=== PATIENT | female | born 1960 | race Caucasian/White ===

== ENCOUNTER → 2016-09-23 | Outpatient (REF) | payer MEDICARE, MEDICAID ==
[2016-09-23 13:04] LABS: BASO % 0.4 % (0.0-1.0); EOS # 0.2 K/mm3 (0.0-0.50); EOS % 2.4 % (0.0-3.0); LARGE UNSTAINED CELL # 0.1 K/mm3 (0.0-0.4); LARGE UNSTAINED CELL % 1.2 % (0.0-4.0); LYMPH # 1.7 K/mm3 (1.5-4.5); LYMPH % 26.2 % (24.0-44.0); MEAN CORPUSCULAR HEMOGLOBIN 31.8 pg (27.0-33.0); MEAN CORPUSCULAR HGB CONC 34.7 g/dl (32.0-36.5); MEAN CORPUSCULAR VOLUME 91.8 fl (80.0-96.0); MONO # 0.3 K/mm3 (0.0-0.8); MONO % 4.5 % (0.0-5.0); NEUTROPHILS # 4.1 K/mm3 (1.8-7.7); NEUTROPHILS % 65.3 % (36.0-66.0); PLATELET COUNT, AUTOMATED 256 k/mm3 (150-450); WHITE BLOOD COUNT 6.2 K/mm3 (4.0-10.0)
[2016-09-23 13:31] LABS: ALBUMIN 3.8 GM/DL (3.2-5.2); ALBUMIN/GLOBULIN RATIO 1.15 (1.00-1.93); ALKALINE PHOSPHATASE 133 U/L (45-117); ALT/SGPT 19 U/L (12-78); ANION GAP 11 MEQ/L (8-16); AST/SGOT 18 U/L (15-37); BILIRUBIN,TOTAL 0.3 MG/DL (0.2-1.0); BLOOD UREA NITROGEN 19 MG/DL (7-18); CALCIUM LEVEL 9.5 MG/DL (8.5-10.1); CARBON DIOXIDE LEVEL 26 MEQ/L (21-32); CHLORIDE LEVEL 104 MEQ/L (98-107); CREATININE FOR GFR 0.72 MG/DL (0.55-1.02); FREE T4 0.94 NG/DL (0.76-1.46); GLOMERULAR FILTRATION RATE > 60.0 (>51); GLUCOSE, FASTING 116 MG/DL (70-105); POTASSIUM SERUM 4.3 MEQ/L (3.5-5.1); SODIUM LEVEL 141 MEQ/L (136-145); TOTAL PROTEIN 7.1 GM/DL (6.4-8.2)
[2016-09-23 13:32] LABS: VITAMIN B12 LEVEL 298 PG/ML (247-911)
== END ==
LOC: M SFHCPLAZ 09:23
PROVIDERS: ATTEND Physician Assistant Medical
DX: I10 Essential (primary) hypertension (principal); E78.00 Pure hypercholesterolemia, unspecified; E55.9 Vitamin D deficiency, unspecified; Z79.899 Other long term (current) drug therapy

== ENCOUNTER → 2016-10-27 | Outpatient (CLI) | payer MEDICARE, MEDICAID ==
--- NOTE | 2016-10-27 15:54 | REPMRS ---
Patient History The patient states she has not had a clinical breast exam in over a year. Patient is postmenopausal. Family history of premenopausal breast cancer in sister at age 50 or over. Benign excisional biopsy of the left breast, 2002. Digital Woman Screen Mammo: October 27, 2016 - Exam #: [id number] Bilateral CC and MLO view(s) were taken. Technologist: Korin Shaver, Technologist Prior study comparison: September 22, 2013, digital woman screen mammo performed at [facility] [place] [facility]. October 14, 2011, digital woman screen mammo performed at [facility] [place] [facility] to [facility]. FINDINGS: There are scattered fibroglandular densities. There is a fairly symmetric fibroglandular pattern in both breasts. There has been no interval development of masses, areas of architectural distortion or clusters of microcalcifications typical of malignancy. ASSESSMENT: BI-RADS/ACR category 2 mammogram. Benign finding(s). Recommendation Routine screening mammogram of both breasts in 1 year (for women over age 40). This mammogram was interpreted with the aid of an FDA-approved computer-aided dectection system. Electronically Signed By: Pradeep Reddy MD 10/27/16 [id number]
== END ==
LOC: M WHC 14:56
PROVIDERS: ATTEND Physician Assistant Medical
DX: Z12.31 Encounter for screening mammogram for malignant neoplasm of breast (principal)

== ENCOUNTER 2017-06-03 16:12 | Inpatient (IN) | payer OTHER, MEDICAID ==
[~2017-06-03] VITALS: Ht 165.1 cm; Wt 82.7 kg
[2017-06-03] MEDS ORDERED: CO Q100C PO (18:13)
[2017-06-03] MEDS ORDERED: VITA400C7 PO (18:13)
[2017-06-03] MEDS ORDERED: CALC600T31 PO (18:13)
[2017-06-03] MEDS ORDERED: IRON65TA PO (18:13)
[2017-06-03] MEDS ORDERED: TYLE325T5 PO (18:13)
[2017-06-03] MEDS ORDERED: MAALOX 30 ML SUSP *UDC PO PRN (19:45)
[2017-06-03] MEDS ORDERED: MOM 30ML SUSPENSION UDC PO PRN (19:45)
[2017-06-03] MEDS ORDERED: traZODone 50 MG TAB PO PRN (19:45)
[2017-06-04 00:09] VITALS: BP 139/82
[2017-06-04] MEDS: ACETAMINOPHEN TAB 650MG DOSE (2X325MG) PO PRN ×2 (01:12→09:40)
[2017-06-04 06:33] VITALS: BP 145/96
[2017-06-04] MEDS: FERROUS SULFATE 325MG TAB PO SCH (08:34)
[2017-06-04] MEDS: CO-ENZYME Q10 50 MG CAP PO SCH (08:34)
[2017-06-04] MEDS: VITAMIN E 400 INTERNATIONAL UNITS CAP PO SCH (08:34)
[2017-06-04] MEDS: OYSTER SHELL CALCIUM 500 MG TAB PO SCH ×2 (08:35→20:15)
[2017-06-04] MEDS ORDERED: risperiDONE 2 MG TAB PO SCH (09:00)
--- NOTE | 2017-06-04 09:08 | HPEPDOC ---
[facility] Medical History & Physical Date of Admission Jun 03, 2017 History and Physical PCP: [facility] ATTENDING: Dr. Carl Alcantar HPI: 57yoF transferred from [facility] admitted to [facility] for paranoid schizophrenia, being medically examined today. No acute medical complaints today. The patient has rapid, pressured and tangential speech and has a difficult time providing history. She is redirected multiple times. According to records the patient has been noncompliant with her medications. She was seen in the [facility] clinic by her PCP 10/02 at which time she reported to be taking her medications. Medication regimen included atorvastatin 20 mg daily, benazepril 5 mg daily, Drisdol weekly and Xarelto 20 mg daily related to history of CVA. Denies any fevers, chills, weakness, fatigue, IGLESIAS, CP, SOB, cough, palpitations, abdominal pain, N/V/D or changes in bowel or bladder habits. PMHx: NIDDM GERD COPD Schizophrenia Dyslipidemia History of left CVA 03/19 with residual right facial drooping Iron deficiency anemia, patient has declined scoping as per office notes. Vitamin D deficiency History of goiter, FNA 04/30 benign nodule. Osteoarthritis PSHX: TM repair SOCHX: Resides in: [facility] Marital Status: Kids: 2 Employment: Unemployed Tobacco use: Quit 2000 ETOH: Denies Illicit Drugs: Denies IV Drug Use: Denies Tattoos done unprofessionally: Denies FAMHX: Mother: , Parkinson's disease Father: , [place] Siblings: Alive, well Children: Alive, well Unexpected deaths due to medical reasons: None. ROS: As noted in HPI, otherwise 11pt ROS of systems reviewed and remarkable only for postmenopausal. PE: GEN: 57 yo F, appears stated age. Well-nourished. Unkept. No acute distress. Alert and oriented x 3. Rambling and tangential speech, redirected multiple times to answer questions. HEENT: Normocephalic, atraumatic. Pupils are equal, round, and reactive to light. Extraocular movements are intact. No nystagmus appreciated. Sclera are nonicteric. Conjunctiva without injection. Nose midline. Nasal turbinates without bogginess. EACs both patent BL. TMs both visualized and reece with good cone of light, no bulging or erythema. No facial asymmetry. Moist mucous membranes. Dentition fair. Pharynx pink and moist, no cobblestoning. Neck supple , trachea midline. No lymphadenopathy or thyromegaly appreciated. CHEST: Regular rate and rhythm, +S1, +S2 LUNGS: Clear to auscultation bilaterally. No wheezes, rales, or rhonchi. Breathing appears symmetric and easy. Patient is speaking in full sentences. No accessory muscle use. ABD: Round, soft, non-tender, non-distended. +Bowel sounds throughout. No rebound or guarding. No costovertebral angle tenderness. EXT: Pulses 2+ bilaterally dorsalis pedis and radial. No lower extremity edema appreciated. SKIN: [place], dry, warm. Capillary refill <2sec. No rashes. There is mild erythema and warmth noted at the dorsal aspect of the Rt foot, mild TTP. NEURO: Alert and oriented x 3. Cranial nerves III-XII are intact. No focal deficits appreciated. [facility] . UA neg. UC pending WBC 7.6 Hgb13.0 Hct 37.8 Plt 274 Glu 101 BUN16 Scr 0.7 K 3.7 Cl 102 NA 140 AST 15 ALT 19 Lipase 155 Trop < 0.017 TSH 0.47 CXR NAD Ammonia <10 Toxicology unremarkable. EKG: SR 55bpm. A&P: 57yoF [address] from [facility] admitted to [facility] for paranoid schizophrenia 1. Psych. Plan per Psychiatry. Obtain baseline EKG to assure the safety of psychiatric medications as they can prolong the QT interval. 2. Rt foot edema/pain. Pt with mild erythema and TTP dorsal aspect of foot, possibly shoes had been rubbing there, no skin breakdown, drainage, no streaking. Pt is afebrile, no leukocytosis. Add Keflex 500mg TID x 10 days. Monitor. U/S RLE pending XR Rt foot pending. 3. Hypertension. Blood pressure is noted to be 139-172 systolic. Restart benazepril 5 mg daily with hold parameters. 4. Follow up with PCP on discharge. 5. Dyslipidemia. LDL 10/02 is noted to be 80. Restart atorvastatin 20 mg daily. 6. Vitamin D deficiency. Vitamin D level 10/02 is noted within normal limits. Restart Drisdol weekly. Add vitamin D level to labs. 7. NIDDM. Diet controlled. Hemoglobin A1c 10/02 is noted to be 5.7. Glucose 101 on admission labs. 8. H/O CVA. Per noted Pt previously on Xarelto. Has not filled since 11/02. Also as per office note in past indicates Coumadin was changed to Xarelto 04/01 related to non compliance and INR not therapeutic. Spoke with Dr Sommer, ([facility] Pt), who also reviewed office notes. No prior h/o Afib noted. Recommends ASA 81mg considering Pt's non compliance, risk for falls and psychiatric history. ASA 81 mg daily added to regimen. 9. Fe def anemia. Cont po supplement. Hgb 13.0. Continue outpt F/U. 10. Staff member Nika present throughout exam. Vital Signs Vital Signs Date Time Temp Pulse Resp B/P (MAP) Pulse Ox O2 Delivery O2 Flow Rate FiO2 06/04/17 06:33 97.1 84 16 145/96 (112) 06/04/17 00:09 Room Air 06/03/17 23:40 96 Laboratory Data Labs 24H Item Value Date Time White Blood Count 6.2 K/mm3 09/23/16 0952 Red Blood Count 4.04 M/mm3 09/23/16 0952 Hemoglobin 12.9 g/dl 09/23/16 0952 Hematocrit 37.1 % 09/23/16 0952 Mean Corpuscular Volume 91.8 fl 09/23/16 0952 Mean Corpuscular Hemoglobin 31.8 pg 09/23/16 0952 Mean Corpuscular Hemoglobin Concent 34.7 g/dl 09/23/16 0952 Red Cell Distribution Width 13.0 % 09/23/16 0952 Platelet Count 256 k/mm3 09/23/16 0952 Sodium Level 141 MEQ/L 09/23/16 0952 Potassium Level 4.3 MEQ/L 09/23/16 0952 Chloride Level 104 MEQ/L 09/23/16 0952 Carbon Dioxide Level 26 MEQ/L 09/23/16 0952 Anion Gap 11 MEQ/L 09/23/16 0952 Blood Urea Nitrogen 19 MG/DL H 09/23/16 0952 Creatinine 0.72 MG/DL 09/23/16 0952 Glomerular Filtration Rate > 60.0 09/23/16 0952 Fasting Glucose 116 MG/DL H 09/23/16 0952 Estimated Mean Plasma Glucose 117 MG/DL H 09/23/16 0952 Hemoglobin A1c 5.7 % 09/23/16951 Calcium Level 9.5 MG/DL 09/23/16951 Total Bilirubin 0.3 MG/DL 09/23/16951 Aspartate Amino Transf (AST/SGOT) 18 U/L 09/23/16951 Alanine Aminotransferase (ALT/SGPT) 19 U/L 09/23/16951 Alkaline Phosphatase 133 U/L H 09/23/16951 LDL Cholesterol 80.0 MG/DL 04/13/16 1237 Vitamin B12 Level 298 PG/ML 09/23/16951 25-Hydroxy Vitamin D Total 37.2 NG/ML 09/23/16951 Thyroid Stimulating Hormone (TSH) 0.735 uIU/ML 09/23/16951 Free Thyroxine 0.94 NG/DL 09/23/16951 Home Medications Scheduled (Co Q-10) 100 Mg Cap, 100 MG PO DAILY (Iron) 325 Mg Tab, 325 MG PO DAILY Calcium (Calcium) 600 Mg Tab, 600 MG PO BID Vitamin E (Vitamin E) 400 Unit Cap, 400 UNIT PO DAILY Scheduled PRN Acetaminophen (Tylenol) 325 Mg Tab, 650 MG PO Q4H PRN for PAIN Allergies Coded Allergies: No Known Allergies (Verified Allergy, Unknown, 01/08/07) Lori Feliz Jun 04, 2017 09:08
[2017-06-04] MEDS: VITAMIN D 50,000 UNITS CAPSULE (ERGOCALCIFEROL 1.25MG) PO SCH (09:38)
[2017-06-04] MEDS: BENAZEPRIL 5 MG TAB PO SCH (11:35)
[2017-06-04] MEDS: DIVALPROEX 250 MG TAB PO SCH ×2 (11:36→20:16)
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
--- NOTE | 2017-06-04 13:50 | REP ---
Clinical: Pain. Technique: AP, lateral, bilateral oblique views of the right foot. Comparison: 04/15/2014. Findings: Moderate diffuse osteoarthritic degenerative changes are appreciated and similar to prior examination. No acute fracture dislocation. Lateral view demonstrates moderate calcaneal heal spur. Findings: Moderate osteoarthritic degenerative changes. Signed by Dominic Ham MD 06/04/2017 01:42 P
--- NOTE | 2017-06-04 13:59 | REP ---
Clinical: Right lower extremity pain and swelling . Technique: Reddy scale and color Doppler evaluation using linear high frequency transducer. Findings: Ultrasound examination of the right lower extremity deep venous structures from the common femoral vein to the popliteal vein demonstrates normal compressibility flow and wave patterns in response to respiration and augmentation. There is no evidence for deep venous thrombosis. Incidental right inguinal lymph node measures 4.3 x 1.4 x 1.9 cm. Impression: No evidence for deep venous thrombosis. Signed by Dominic Ham MD 06/04/2017 01:50 P
[2017-06-04] MEDS ORDERED: QUEtiapine FUMARATE 50 MG TAB PO PRN (15:00)
[2017-06-04] MEDS: ASPIRIN 81 MG ENTERIC TAB PO SCH (15:17)
[2017-06-04] MEDS: CEPHALEXIN 500 MG CAP PO SCH ×2 (15:17→20:15)
[2017-06-04] MEDS ORDERED: IBUPROFEN 800 MG TAB PO PRN (16:45)
[2017-06-04 18:18] VITALS: BP 118/68
[2017-06-04] MEDS: PALIPERIDONE 6 MG ER TAB (INVEGA) PO SCH (20:15)
[2017-06-04] MEDS: QUEtiapine FUMARATE 50 MG TAB PO SCH (20:16)
[2017-06-04] MEDS: ATORVASTATIN 20 MG TAB PO SCH (20:16)
[2017-06-04] MEDS ORDERED: QUEtiapine FUMARATE 100 MG TAB PO SCH (21:00)
[2017-06-05 06:36] VITALS: BP 134/90
--- NOTE | 2017-06-05 10:34 | MHIPNPDOC ---
[facility] Progress Note Progress Note DATE OF SERVICE: 06/05/17 HISTORY: As per Dr. Crespo: HISTORY OF PRESENT ILLNESS: 57-year-old female with history of paranoid schizophrenia admitted to our unit on a 9.39 legal status. According to the records, the patient was transferred from [facility] after she was evaluated and found to be psychotic." VITAL SIGNS: See below. NEW TEST RESULTS: N/A CURRENT MEDICATIONS: See below. MENTAL STATUS EXAMINATION: Patient is a 57-year old female, who is a/ert, dressed in hospital clothes, fair hygiene, poor eye contact Speech: Is Tangential and circumstantial Language skills are Limited Thought processes including: Incoherent Thought content: Disorganized Abstract reasoning, and computation: Not assessed at this time due to altered mental status Description of associations: loose Description of abnormal or psychotic thoughts: Paranoid delusions, not suicidal and not homicidal. Judgment: Poor Insight: Poor. Orientation: Oriented to place, situation and person. Recent and remote memory: Limited. Attention span and concentration: Distractible. Language: Limited. Fund of knowledge: Fair. Mood: Depressed. Affect: constricted. DIAGNOSES: 1. Paranoid schizophrenia, by history. 2. R/O Schizoaffective disorder. ASSESSMENT: Patient is delusional, tangential, incoherent but she's not aggressive. complains about pain in her foot. She has no insight, she says she doesn't need to be here, the only problem she has is her foot pain. She's on Paliperidone 6 mgs. PO QHS. will leave for Dr. Crespo to decide if medication should be increased. MANAGEMENT PLAN: Willl continue with the same meds. Patient is stable at this time. TIME SPENT: 20 minutes. Vital Signs Vital Signs Date Time Temp Pulse Resp B/P (MAP) Pulse Ox O2 Delivery O2 Flow Rate FiO2 06/05/17 06:36 97.2 87 20 134/90 (105) Room Air 06/03/17 23:40 96 Current Medications Current Medications Acetaminophen (Tylenol Tab) 650 mg Q6HP PRN PO HEADACHE or DISCOMFORT Last administered on 06/04/17t 09:40; Start 06/03/17 at 19:45; Stop 06/04/17 at 16 :36; Status DC Al Hydrox/Mg Hydrox/Simethicone (Mylanta) 30 ml Q4HP PRN PO HEARTBURN/ INDIGESTION; Start 06/03/17 at 19:45; Stop 07/03/17 at 19:44 Aspirin (Ecotrin) 81 mg DAILY PO Last administered on 06/04/17 15:17; Start 06/04/17 at 09:00; Stop 07/04/17 at 08:59 Atorvastatin Calcium (Lipitor) 20 mg QHS PO Last administered on 06/04/17 20: 16; Start 06/04/17 at 21:00; Stop 07/04/17 at 20:59 Benazepril HCl (Lotensin) 5 mg DAILY PO Last administered on 06/04/17 11:35; Start 06/04/17 at 09:00; Stop 07/04/17 at 08:59 Calcium Carbonate (Oscal) 500 mg BID PO Last administered on 06/04/17 20:15; Start 06/04/17 at 09:00; Stop 07/04/17 at 08:59 Cephalexin Monohydrate (Keflex) 500 mg TID PO Last administered on 06/04/17 20:15; Start 06/04/17 at 16:00; Stop 06/14/17 at 09:01 Coenzyme Q10 (Coenzyme Q10) 100 mg DAILY PO Last administered on 06/04/17 08: 34; Start 06/04/17 at 09:00; Stop 07/04/17 at 08:59 Divalproex Sodium (Depakote) 250 mg BID PO Last administered on 06/04/17 20: 16; Start 06/04/17 at 09:00; Stop 07/04/17 at 08:59 Ferrous Sulfate (Ferrous Sulfate) 325 mg DAILY PO Last administered on 08:34; Start 06/04/17 at 09:00; Stop 07/04/17 at 08:59 Home Med (Med Rec Complete!) ASDIRECTED XX ; Start 06/03/17 at 18:15; Stop at 18:15; Status DC Ibuprofen (Advil) 800 mg Q8HP PRN PO MODERATE PAIN (PS 5-7) Last administered on 06/04/17 16:38; Start 06/04/17 at 16:45; Stop 07/04/17 at 16:44 Magnesium Hydroxide (Milk Of Magnesia) 30 ml DAILYPRN PRN PO CONSTIPATION; Start 06/03/17 at 19:45; Stop 07/03/17 at 19:44 Paliperidone (Invega) 6 mg QHS PO Last administered on 06/04/17 20:15; Start 06/04/17 at 21:00; Stop 07/04/17 at 20:59 Quetiapine Fumarate (SEROquel) 50 mg QHS PO Last administered on 06/04/17 20: 16; Start 06/04/17 at 21:00; Stop 07/04/17 at 20:59 Quetiapine Fumarate (SEROquel) 50 mg QHS PRN PO INSOMNIA; Start 06/04/17 at 15 :00; Stop 07/04/17 at 14:59 Quetiapine Fumarate (SEROquel) 100 mg QHS PO ; Start 06/04/17 at 21:00; Stop 06/04/17 at 21:00; Status DC Risperidone (RisperDAL) 2 mg BID PO ; Start 06/04/17 at 09:00; Stop 06/04/17 at 14:50; Status DC Trazodone HCl (Desyrel) 50 mg QHSP PRN PO INSOMNIA; Start 06/03/17 at 19:45; Stop 06/04/17 at 10:42; Status DC Vitamin D (Drisdol) 50,000 units Fr@09 PO Last administered on 06/04/17 09:38 ; Start 06/04/17 at 09:00; Stop 07/04/17 at 08:59 Vitamin E (Vitamin E) 400 units DAILY PO Last administered on 06/04/17 08:34 ; Start 06/04/17 at 09:00; Stop 07/04/17 at 08:59 Allergies Coded Allergies: No Known Allergies (Verified Allergy, Unknown, 01/08/07) JOSÉ LUIS KIM MD Jun 05, 2017 10:34
[2017-06-05] MEDS: OYSTER SHELL CALCIUM 500 MG TAB PO SCH ×2 (11:02→20:05)
[2017-06-05] MEDS: CEPHALEXIN 500 MG CAP PO SCH ×3 (11:02→20:05)
[2017-06-05] MEDS: CO-ENZYME Q10 50 MG CAP PO SCH (11:02)
[2017-06-05] MEDS: ASPIRIN 81 MG ENTERIC TAB PO SCH (11:03)
[2017-06-05] MEDS: VITAMIN E 400 INTERNATIONAL UNITS CAP PO SCH (11:03)
[2017-06-05] MEDS: DIVALPROEX 250 MG TAB PO SCH ×2 (11:03→20:06)
[2017-06-05] MEDS: FERROUS SULFATE 325MG TAB PO SCH (11:03)
[2017-06-05] MEDS: BENAZEPRIL 5 MG TAB PO SCH (11:03)
[2017-06-05] MEDS: IBUPROFEN 800 MG TAB PO SCH ×2 (11:11→19:36)
[2017-06-05 18:00] VITALS: BP 117/66
[2017-06-05] MEDS: QUEtiapine FUMARATE 50 MG TAB PO SCH (20:05)
[2017-06-05] MEDS: ATORVASTATIN 20 MG TAB PO SCH (20:05)
[2017-06-05] MEDS: PALIPERIDONE 6 MG ER TAB (INVEGA) PO SCH (20:06)
[2017-06-06] MEDS: IBUPROFEN 800 MG TAB PO SCH ×3 (03:00→19:33)
[2017-06-06 06:24] VITALS: BP 115/56
[2017-06-06] MEDS: OYSTER SHELL CALCIUM 500 MG TAB PO SCH ×2 (07:55→20:04)
[2017-06-06] MEDS: CEPHALEXIN 500 MG CAP PO SCH ×3 (07:55→20:05)
[2017-06-06] MEDS: VITAMIN E 400 INTERNATIONAL UNITS CAP PO SCH (07:55)
[2017-06-06] MEDS: ASPIRIN 81 MG ENTERIC TAB PO SCH (07:55)
[2017-06-06] MEDS: FERROUS SULFATE 325MG TAB PO SCH (07:55)
[2017-06-06] MEDS: DIVALPROEX 250 MG TAB PO SCH ×2 (07:56→20:04)
[2017-06-06] MEDS: CO-ENZYME Q10 50 MG CAP PO SCH (07:56)
[2017-06-06] MEDS: BENAZEPRIL 5 MG TAB PO SCH (07:56)
--- NOTE | 2017-06-06 16:55 | MHIPNPDOC ---
[facility] Progress Note Progress Note DATE OF SERVICE: 06/06/17 HISTORY: As per Dr. Crespo: HISTORY OF PRESENT ILLNESS: 57-year-old female with history of paranoid schizophrenia admitted to our unit on a 9.39 legal status. According to the records, the patient was transferred from [facility] after she was evaluated and found to be psychotic." Today, 06/06/17, the patient keeps saying she wants to go home, she says she shouldn't be here. She worries about her home, she says she has not heat at home. She says her feet is les swollen, less red and it hurts less. VITAL SIGNS: See below. NEW TEST RESULTS: N/A CURRENT MEDICATIONS: See below. MENTAL STATUS EXAMINATION: Patient is a 57-year old female, alert, mildly cooperative, mildly disheveled, with poor eye contact, dressed in hospital clothes Speech: Normal in rate, tone and volume Language skills are fair Thought processes including: less disorganized Thought content: perseveres about going home Abstract reasoning, and computation: Not assessed at this time due to altered mental status Description of associations: less loose Description of abnormal or psychotic thoughts: She is not responding to internal stimuli, she is not paranoid today, she denies SI/HI. Judgment: Improving Insight: Improving Orientation: Oriented to place, situation and person. Recent and remote memory: Limited. Attention span and concentration: Fair Language: Limited. Fund of knowledge: Fair. Mood: Brighter Affect: Brighter DIAGNOSES: 1. Paranoid schizophrenia, by history. 2. R/O Schizoaffective disorder. ASSESSMENT: Patient is improving, she's less tangential, less disorganized. Having a good response to medications, she's pleasant and more coherent. Was not responding to internal stimuli and she was not paranoid. MANAGEMENT PLAN: Willl continue with the same treatment plan. TIME SPENT: 20 minutes. Vital Signs Vital Signs Date Time Temp Pulse Resp B/P (MAP) Pulse Ox O2 Delivery O2 Flow Rate FiO2 06/06/17 07:56 115/56 06/06/17 06:24 97.3 68 18 06/05/17 06:36 Room Air 06/03/17 23:40 96 Current Medications Current Medications Acetaminophen (Tylenol Tab) 650 mg Q6HP PRN PO HEADACHE or DISCOMFORT Last administered on 06/04/17t 09:40; Start 06/03/17 at 19:45; Stop 06/04/17 at 16 :36; Status DC Al Hydrox/Mg Hydrox/Simethicone (Mylanta) 30 ml Q4HP PRN PO HEARTBURN/ INDIGESTION; Start 06/03/17 at 19:45; Stop 07/03/17 at 19:44 Aspirin (Ecotrin) 81 mg DAILY PO Last administered on 06/06/17 07:55; Start 06/04/17 at 09:00; Stop 07/04/17 at 08:59 Atorvastatin Calcium (Lipitor) 20 mg QHS PO Last administered on 06/05/17 20: 05; Start 06/04/17 at 21:00; Stop 07/04/17 at 20:59 Benazepril HCl (Lotensin) 5 mg DAILY PO Last administered on 06/06/17 07:56; Start 06/04/17 at 09:00; Stop 07/04/17 at 08:59 Calcium Carbonate (Oscal) 500 mg BID PO Last administered on 06/06/17 07:55; Start 06/04/17 at 09:00; Stop 07/04/17 at 08:59 Cephalexin Monohydrate (Keflex) 500 mg TID PO Last administered on 06/06/17 15:59; Start 06/04/17 at 16:00; Stop 06/14/17 at 09:01 Coenzyme Q10 (Coenzyme Q10) 100 mg DAILY PO Last administered on 06/06/17 07: 56; Start 06/04/17 at 09:00; Stop 07/04/17 at 08:59 Divalproex Sodium (Depakote) 250 mg BID PO Last administered on 06/06/17 07: 56; Start 06/04/17 at 09:00; Stop 07/04/17 at 08:59 Ferrous Sulfate (Ferrous Sulfate) 325 mg DAILY PO Last administered on 07:55; Start 06/04/17 at 09:00; Stop 07/04/17 at 08:59 Home Med (Med Rec Complete!) ASDIRECTED XX ; Start 06/03/17 at 18:15; Stop at 18:15; Status DC Ibuprofen (Advil) 800 mg Q8H PO Last administered on 06/06/17 10:59; Start 06/05/17 at 11:00; Stop 07/05/17 at 10:59 Ibuprofen (Advil) 800 mg Q8HP PRN PO MODERATE PAIN (PS 5-7) Last administered on 06/04/17 16:38; Start 06/04/17 at 16:45; Stop 06/05/17 at 10:32; Status DC Magnesium Hydroxide (Milk Of Magnesia) 30 ml DAILYPRN PRN PO CONSTIPATION; Start 06/03/17 at 19:45; Stop 07/03/17 at 19:44 Paliperidone (Invega) 6 mg QHS PO Last administered on 06/05/17 20:06; Start 06/04/17 at 21:00; Stop 07/04/17 at 20:59 Quetiapine Fumarate (SEROquel) 50 mg QHS PO Last administered on 06/05/17 20: 05; Start 06/04/17 at 21:00; Stop 07/04/17 at 20:59 Quetiapine Fumarate (SEROquel) 50 mg QHS PRN PO INSOMNIA; Start 06/04/17 at 15 :00; Stop 07/04/17 at 14:59 Quetiapine Fumarate (SEROquel) 100 mg QHS PO ; Start 06/04/17 at 21:00; Stop 06/04/17 at 21:00; Status DC Risperidone (RisperDAL) 2 mg BID PO ; Start 06/04/17 at 09:00; Stop 06/04/17 at 14:50; Status DC Trazodone HCl (Desyrel) 50 mg QHSP PRN PO INSOMNIA; Start 06/03/17 at 19:45; Stop 06/04/17 at 10:42; Status DC Vitamin D (Drisdol) 50,000 units Fr@09 PO Last administered on 06/04/17 09:38 ; Start 06/04/17 at 09:00; Stop 07/04/17 at 08:59 Vitamin E (Vitamin E) 400 units DAILY PO Last administered on 06/06/17 07:55 ; Start 06/04/17 at 09:00; Stop 07/04/17 at 08:59 Allergies Coded Allergies: No Known Allergies (Verified Allergy, Unknown, 01/08/07) JOSÉ LUIS KIM MD Jun 06, 2017 16:55
[2017-06-06 18:00] VITALS: BP 131/78
[2017-06-06] MEDS: PALIPERIDONE 6 MG ER TAB (INVEGA) PO SCH (20:04)
[2017-06-06] MEDS: ATORVASTATIN 20 MG TAB PO SCH (20:05)
[2017-06-06] MEDS: QUEtiapine FUMARATE 50 MG TAB PO SCH (20:05)
[2017-06-07] MEDS: IBUPROFEN 800 MG TAB PO SCH (03:00)
[2017-06-07 06:41] VITALS: BP 133/77
[2017-06-07] MEDS: DIVALPROEX 250 MG TAB PO SCH (08:06)
[2017-06-07] MEDS: BENAZEPRIL 5 MG TAB PO SCH (08:06)
[2017-06-07] MEDS: CO-ENZYME Q10 50 MG CAP PO SCH (08:06)
[2017-06-07] MEDS: OYSTER SHELL CALCIUM 500 MG TAB PO SCH ×2 (08:06→20:16)
[2017-06-07] MEDS: VITAMIN E 400 INTERNATIONAL UNITS CAP PO SCH (08:06)
[2017-06-07] MEDS: CEPHALEXIN 500 MG CAP PO SCH ×3 (08:06→20:16)
[2017-06-07] MEDS: FERROUS SULFATE 325MG TAB PO SCH (08:06)
[2017-06-07] MEDS: ASPIRIN 81 MG ENTERIC TAB PO SCH (08:06)
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
[2017-06-07 18:00] VITALS: BP 141/78
[2017-06-07] MEDS: DIVALPROEX 500 MG TAB PO SCH (20:16)
[2017-06-07] MEDS: PALIPERIDONE 6 MG ER TAB (INVEGA) PO SCH (20:16)
[2017-06-07] MEDS: QUEtiapine FUMARATE 100 MG TAB PO SCH (20:16)
[2017-06-07] MEDS: ATORVASTATIN 20 MG TAB PO SCH (20:16)
[2017-06-08 06:50] VITALS: BP 128/61
[2017-06-08] MEDS: DIVALPROEX 500 MG TAB PO SCH (08:14)
[2017-06-08] MEDS: OYSTER SHELL CALCIUM 500 MG TAB PO SCH ×2 (08:14→20:40)
[2017-06-08] MEDS: CEPHALEXIN 500 MG CAP PO SCH ×3 (08:14→20:40)
[2017-06-08] MEDS: BENAZEPRIL 5 MG TAB PO SCH (08:15)
[2017-06-08] MEDS: FERROUS SULFATE 325MG TAB PO SCH (08:15)
[2017-06-08] MEDS: CO-ENZYME Q10 50 MG CAP PO SCH (08:15)
[2017-06-08] MEDS: ASPIRIN 81 MG ENTERIC TAB PO SCH (08:15)
[2017-06-08] MEDS: VITAMIN E 400 INTERNATIONAL UNITS CAP PO SCH (08:15)
--- NOTE | 2017-06-08 15:59 | MHIPN ---
DATE OF SERVICE: 06/08/2017 HISTORY: A 57-year-old female with history of paranoid schizophrenia admitted to our unit on a 9.39 legal status. Patient was transferred from [facility] where she was found to be psychotic, talking to herself. The daughter said that she was reacting to internal stimuli, that she was hitting her house with a gas oven and feeling that someone was broken into her house. MEDICATIONS: - Invega 6 mg by mouth nightly - Depakote 500 mg by mouth twice a day - Seroquel 50 mg by mouth nightly SUBJECTIVE: "I feel a little less paranoid." OBJECTIVE: Patient has improved somewhat from admission. Patient can identify that she was very paranoid when she got to the hospital. Patient is denying side effect from the medication. She is compliant, is sleeping better with the help of Seroquel. MENTAL STATUS EXAMINATION: Patient dressed in [facility]. Patient is partially cooperative. Speech is tangential and has flight of ideas. Mood is anxious. Affect is congruent with mood. Patient continues paranoid but has improved. Memory, attention and concentration are impaired. Insight and judgment are poor. ASSESSMENT: Paranoid schizophrenia. PLAN: 1. 100 mg by mouth nightly. 2. Continue Depakote. 3. Continue Invega 6 mg by mouth nightly.
[2017-06-08 18:00] VITALS: BP 118/63
[2017-06-08] MEDS: PALIPERIDONE 6 MG ER TAB (INVEGA) PO SCH (20:40)
[2017-06-08] MEDS: QUEtiapine FUMARATE 100 MG TAB PO SCH (20:41)
[2017-06-08] MEDS: ATORVASTATIN 20 MG TAB PO SCH (20:41)
[2017-06-09 06:26] VITALS: BP 93/52
[2017-06-09] MEDS: CO-ENZYME Q10 50 MG CAP PO SCH (08:10)
[2017-06-09] MEDS: CEPHALEXIN 500 MG CAP PO SCH ×3 (08:12→20:05)
[2017-06-09] MEDS: BENAZEPRIL 5 MG TAB PO SCH (08:12)
[2017-06-09] MEDS: OYSTER SHELL CALCIUM 500 MG TAB PO SCH ×2 (08:12→20:05)
[2017-06-09] MEDS: ASPIRIN 81 MG ENTERIC TAB PO SCH (08:12)
[2017-06-09] MEDS: FERROUS SULFATE 325MG TAB PO SCH (08:12)
[2017-06-09] MEDS: VITAMIN E 400 INTERNATIONAL UNITS CAP PO SCH (08:12)
--- NOTE | 2017-06-09 16:24 | IPN ---
DATE: 06/03/2017 HISTORY: A 57-year-old female with history of paranoid schizophrenia, admitted to our unit on a 9.39 legal status. Patient was transferred from [facility], where she was found to be psychotic, talking to herself. The daughter said that she was reacting to internal stimuli, heating her house with a gas oven and feeling that somewhat had broken into her house. MEDICATIONS: - Invega 6 mg by mouth at bedtime - Seroquel 50 mg by mouth at bedtime SUBJECTIVE: "I'm feeling much better." OBJECTIVE: Patient is improving slowly. Patient continues somewhat paranoid but the severity and frequency of the paranoid thoughts are decreased. Patient is interacting better with other patients. Is compliant with the medication. Is able to sleep well with the help of Seroquel. MENTAL STATUS EXAMINATION: Patient is dressed in [facility]. Patient is cooperative. Speech is tangential and has flight of ideas. Mood is anxious. Affect is congruent with mood. Patient continues paranoid. Memory, attention, and concentration are impaired. Insight and judgment are limited. ASSESSMENT: Paranoid schizophrenia. PLAN: 1. Continue Invega 6 mg by mouth at bedtime. 2. Continue seq 50 mg by mouth at bedtime as needed for insomnia.
[2017-06-09 18:04] VITALS: BP 127/77
[2017-06-09] MEDS: QUEtiapine FUMARATE 100 MG TAB PO SCH (20:04)
[2017-06-09] MEDS: ATORVASTATIN 20 MG TAB PO SCH (20:05)
[2017-06-09] MEDS: PALIPERIDONE 6 MG ER TAB (INVEGA) PO SCH (20:05)
[2017-06-10 06:36] VITALS: BP 138/74
[2017-06-10] MEDS: FERROUS SULFATE 325MG TAB PO SCH (08:37)
[2017-06-10] MEDS: ASPIRIN 81 MG ENTERIC TAB PO SCH (08:37)
[2017-06-10] MEDS: CO-ENZYME Q10 50 MG CAP PO SCH (08:37)
[2017-06-10] MEDS: CEPHALEXIN 500 MG CAP PO SCH ×3 (08:37→20:14)
[2017-06-10] MEDS: OYSTER SHELL CALCIUM 500 MG TAB PO SCH ×2 (08:37→20:14)
[2017-06-10] MEDS: BENAZEPRIL 5 MG TAB PO SCH (08:37)
[2017-06-10] MEDS: VITAMIN E 400 INTERNATIONAL UNITS CAP PO SCH (08:37)
[2017-06-10] MEDS: QUEtiapine FUMARATE 100 MG TAB PO SCH (20:14)
[2017-06-10] MEDS: PALIPERIDONE 6 MG ER TAB (INVEGA) PO SCH (20:14)
[2017-06-10] MEDS: ATORVASTATIN 20 MG TAB PO SCH (20:14)
[2017-06-10 20:18] VITALS: BP 133/82
[2017-06-11 06:32] VITALS: BP 119/68
[2017-06-11 08:05] VITALS: BP 119/68
[2017-06-11] MEDS: VITAMIN D 50,000 UNITS CAPSULE (ERGOCALCIFEROL 1.25MG) PO SCH (08:05)
[2017-06-11] MEDS: OYSTER SHELL CALCIUM 500 MG TAB PO SCH (08:05)
[2017-06-11] MEDS: FERROUS SULFATE 325MG TAB PO SCH (08:05)
[2017-06-11] MEDS: CEPHALEXIN 500 MG CAP PO SCH ×2 (08:05→15:37)
[2017-06-11] MEDS: CO-ENZYME Q10 50 MG CAP PO SCH (08:05)
[2017-06-11] MEDS: VITAMIN E 400 INTERNATIONAL UNITS CAP PO SCH (08:05)
[2017-06-11] MEDS: ASPIRIN 81 MG ENTERIC TAB PO SCH (08:05)
[2017-06-11] MEDS: BENAZEPRIL 5 MG TAB PO SCH (08:05)
[2017-06-11] MEDS ORDERED: PALI1TAB3 PO (11:49)
[2017-06-11] MEDS ORDERED: CEPH500C PO (11:49)
[2017-06-11] MEDS ORDERED: ASPI81TAEC PO (11:49)
[2017-06-11] MEDS ORDERED: QUET1TAB8 PO (11:49)
[2017-06-11] MEDS ORDERED: ATOR1TAB21 PO (11:49)
[2017-06-11] MEDS ORDERED: BENA5TA PO (11:49)
[2017-06-11] MEDS ORDERED: DRIS50002 PO (11:49)
--- NOTE | 2017-06-12 16:25 | MHDS ---
DATE OF ADMISSION: 06/03/2017 DATE OF DISCHARGE: 06/11/2017 LEGAL STATUS AT ADMISSION: 939 legal status. HISTORY OF PRESENT ILLNESS: A 57-year-old female with history of paranoid schizophrenia admitted to our unit on a 939 legal status. According to the record, the patient was transferred from [facility] after she was found to be psychotic. Daughter says that she was talking to herself, interacting to internal stimuli, was angry and hitting the dining table with the fist. The daughter got afraid of the patient. Apparently she has been noncompliant with psychiatric medication for the last two years, and she has been decompensating. The daughter reported that the patient's furnace was broken and she was heating her house with a gas oven, also that she shut off her apartment water due to a leak and there is some damage in the house that needs to be repaired. She has been staying with her daughter because of the above. During the first interview in our unit, the patient was unable to cooperate. She was displaying manic-like behavior with pressured speech, jumping from subject to subject, paranoid, delusional, and unreliable. Laboratories at admission were not drawn since the patient was medically worked up at [facility]. HOSPITAL COURSE: After the first interview, the patient was admitted and started on Invega 6 mg by mouth at bedtime, Seroquel 100 mg by mouth at bedtime. With the above medication, the patient was stabilized. The patient started to improve after 2-3 days in the unit, and her paranoid delusions started to decrease, and she also started to be critical about her paranoid delusions and realizing that she had to take the medication. We had a first meeting with her daughter, and the patient understood that she needed to stay in the hospital to improve. We talked to the daughter again before discharge. She was visiting the day before, and felt that the patient was much better than the first time she saw her. The patient had no complications during this hospital admission. The patient tolerated well the medication and is more insightful that she needs to continue taking them after discharge. MENTAL STATUS EXAMINATION AT DISCHARGE: The patient is dressed in [facility]. The patient is calm and cooperative. Her speech is clear, coherent, with normal rate and is spontaneous. The patient has good eye contact. Mood is euthymic. Affect is appropriate and congruent with mood. The patient is oriented to time, place, person and situation. Maintains attention and concentration correctly. Instant recall, recent and remote memory are intact. Thought processes are coherent, logical and goal directed. The patient does not have auditory or visual hallucinations. The patient does not have paranoid, persecutory, somatic, grandiose or restoration delusions. The patient is denying suicidal or homicidal ideations. Judgment and insight are fair. DISCHARGE DIAGNOSES: AXIS I: Paranoid schizophrenia. AXIS II: Deferred. AXIS III: None acute. CONDITION ON DISCHARGE: Stable, no suicidal or homicidal ideations. No auditory or visual hallucinations or delusions. DISCHARGE MEDICATIONS: - Seroquel 100 mg by mouth at bedtime to tapered off after her complete stabilization and when she is able to sleep completely without the help of medication - Invega 6 mg by mouth at bedtime INSTRUCTIONS TO THE PATIENT: The patient is to continue taking her medications as prescribed and followup appointment. She is advised to maintain absolute sobriety from drugs and alcohol. The patient has scheduled appointment for medication management, individual psychotherapy and primary care physician.
== END 2017-06-11 18:25 | disposition home or self-care (01) | DRG 750 ==
LOC: M ED 16:12 → M ED INP 19:42 → M PSY 06-04
PROVIDERS: ADMIT Psychiatry & Neurology Psychiatry; ATTEND Psychiatry & Neurology Psychiatry
DX: F20.0 Paranoid schizophrenia (principal); E11.9 Type 2 diabetes mellitus without complications; K21.9 Gastro-esophageal reflux disease without esophagitis; J44.9 Chronic obstructive pulmonary disease, unspecified; D50.9 Iron deficiency anemia, unspecified; E78.5 Hyperlipidemia, unspecified; I10 Essential (primary) hypertension; E55.9 Vitamin D deficiency, unspecified; Z91.14 Patient's other noncompliance with medication regimen; Z87.891 Personal history of nicotine dependence; Z79.899 Other long term (current) drug therapy

== ENCOUNTER 2017-06-21 15:01 | Inpatient (IN) | payer MEDICAID, MEDICARE ==
[~2017-06-21] VITALS: Ht 165.1 cm; Wt 88.0 kg
[~2017-06-21 15:01] MED LIST: ASPI81TAEC PO; ATOR1TAB21 PO; BENA5TA PO; CALC600T31 PO; CEPH500C PO; CO Q100C PO; DRIS50002 PO; IRON65TA PO; PALI1TAB3 PO; QUET1TAB8 PO; TYLE325T5 PO; VITA400C7 PO
[2017-06-21 18:08] LABS: MEAN CORPUSCULAR HEMOGLOBIN 29.4 pg (27.0-33.0); MEAN CORPUSCULAR VOLUME 86.7 fl (80.0-96.0); PLATELET COUNT, AUTOMATED 235 10^3/uL (150-450); RED CELL DISTRIBUTION WIDTH 12.2 % (11.5-14.5); WHITE BLOOD COUNT 9.3 10^3/uL (4.0-10.0)
[2017-06-21 18:17] LABS: METHADONE URINE NEGATIVE (NEGATIVE)
[2017-06-21 18:40] LABS: ALBUMIN 3.6 GM/DL (3.2-5.2); ALKALINE PHOSPHATASE 110 U/L (45-117); ALT/SGPT 17 U/L (12-78); ANION GAP 9 MEQ/L (8-16); AST/SGOT 14 U/L (7-37); BILIRUBIN,DIRECT < 0.1 MG/DL (0.0-0.2); BILIRUBIN,TOTAL 0.2 MG/DL (0.2-1.0); BLOOD UREA NITROGEN 29 MG/DL (7-18); CARBON DIOXIDE LEVEL 25 MEQ/L (21-32); CHLORIDE LEVEL 105 MEQ/L (98-107); GLOMERULAR FILTRATION RATE > 60.0 (>51); GLUCOSE, FASTING 117 MG/DL (70-105); POTASSIUM SERUM 4.3 MEQ/L (3.5-5.1); SODIUM LEVEL 139 MEQ/L (136-145); TOTAL PROTEIN 7.6 GM/DL (6.4-8.2)
[2017-06-21] MEDS ORDERED: MAALOX 30 ML SUSP *UDC PO PRN (19:30)
[2017-06-21] MEDS ORDERED: MOM 30ML SUSPENSION UDC PO PRN (19:30)
[2017-06-21] MEDS ORDERED: ACETAMINOPHEN TAB 650MG DOSE (2X325MG) PO PRN (19:45)
[2017-06-21] MEDS ORDERED: PALI1TAB3 PO (19:50)
[2017-06-21] MEDS ORDERED: QUET1TAB8 PO (19:50)
[2017-06-21] MEDS ORDERED: DRIS50002 PO (19:50)
[2017-06-21] MEDS ORDERED: BENA5TA PO (19:50)
[2017-06-21] MEDS ORDERED: ATOR1TAB21 PO (19:50)
[2017-06-21] MEDS: DIVALPROEX 500 MG TAB PO SCH (23:40)
[2017-06-21] MEDS: QUEtiapine FUMARATE 100 MG TAB PO SCH (23:40)
[2017-06-22 01:25] VITALS: BP 138/75
[2017-06-22] MEDS: PALIPERIDONE 6 MG ER TAB (INVEGA) PO SCH ×2 (02:17→20:08)
[2017-06-22 07:00] VITALS: BP 140/77
[2017-06-22] MEDS: DIVALPROEX 500 MG TAB PO SCH ×2 (08:20→20:09)
[2017-06-22] MEDS ORDERED: NYSTATIN 500,000 U/5 ML SUSP UDC PO SCH (09:00)
[2017-06-22] MEDS ORDERED: NICOTINE 21MG/24HR 1 EA TRANSDERMAL TD SCH (09:00)
--- NOTE | 2017-06-22 09:23 | HPEPDOC ---
[facility] Medical History & Physical Date of Admission Jun 21, 2017 History and Physical PCP: [facility] ATTENDING: Dr. Carl Alcantar HPI: 57yoF admitted to [facility] from 06/03/17-06/12/17 for treatment of paranoid schizophrenia. The patient was admitted to [facility] 06/21/17 related to unspecified psychotic disorder. She is being medically examined today. No acute medical complaints today. The patient has tangential speech and has a difficult time providing history. She is redirected multiple times. Denies any fevers, chills, weakness, fatigue, IGLESIAS, CP, SOB, cough, palpitations, abdominal pain, N/V/D or changes in bowel or bladder habits. PMHx: NIDDM GERD COPD Schizophrenia Dyslipidemia History of left CVA 03/19 with residual right facial drooping Iron deficiency anemia, patient has declined scoping as per office notes. Vitamin D deficiency History of goiter, FNA 04/30 benign nodule. Osteoarthritis PSHX: TM repair SOCHX: Resides in: [facility] Marital Status: Kids: 2 Employment: Unemployed Tobacco use: Quit 2000 ETOH: Denies Illicit Drugs: Denies IV Drug Use: Denies Tattoos done unprofessionally: Denies FAMHX: Mother: , Parkinson's disease Father: , [place] Siblings: Alive, well Children: Alive, well Unexpected deaths due to medical reasons: None. ROS: As noted in HPI, otherwise 11pt ROS of systems reviewed and remarkable only for postmenopausal. PE: GEN: 57 yo F, appears stated age. Well-nourished. Unkept. No acute distress. Alert and oriented x 3. Rambling and tangential speech, redirected multiple times to answer questions. HEENT: Normocephalic, atraumatic. Pupils are equal, round, and reactive to light. Extraocular movements are intact. No nystagmus appreciated. Sclera are nonicteric. Conjunctiva without injection. Nose midline. Nasal turbinates without bogginess. EACs both patent BL. TMs both visualized and reece with good cone of light, no bulging or erythema. No facial asymmetry. Moist mucous membranes. Pharynx pink and moist. White exudate is noted on the buccal mucosa and the tongue. Neck supple, trachea midline. No lymphadenopathy or thyromegaly appreciated. CHEST: Regular rate and rhythm, +S1, +S2 LUNGS: Clear to auscultation bilaterally. No wheezes, rales, or rhonchi. Breathing appears symmetric and easy. Patient is speaking in full sentences. No accessory muscle use. ABD: Round, soft, non-tender, non-distended. +Bowel sounds throughout. No rebound or guarding. No costovertebral angle tenderness. EXT: Pulses 2+ bilaterally dorsalis pedis and radial. No lower extremity edema appreciated. SKIN: [place], dry, warm. . No rashes. NEURO: Alert and oriented x 3. Cranial nerves III-XII are intact. No focal deficits appreciated. EKG: Pending A&P: 57yoF admitted to [facility] from 06/03/17-06/12/17 for treatment of paranoid schizophrenia. The patient was admitted to [facility] related to unspecified psychotic disorder. 1. Psych. Plan per Psychiatry. Obtain baseline EKG to assure the safety of psychiatric medications as they can prolong the QT interval. 3. Hypertension. Continue benazepril 5 mg by mouth daily with hold parameters. 4. Follow up with PCP on discharge. 5. Dyslipidemia. LDL 10/02 is noted to be 80. Continue atorvastatin 20 mg daily. 6. Vitamin D deficiency. Vitamin D level 10/02 is noted within normal limits. Continue Drisdol weekly. 7. NIDDM. Diet controlled. Hemoglobin A1c 10/02 is noted to be 5.7. 8. H/O CVA. Per noted Pt previously on Xarelto. Has not filled since 11/02. Also as per office note in past indicates Coumadin was changed to Xarelto 04/01 related to non compliance and INR not therapeutic. Spoke with Dr Sommer during her last admission 06/04, ([facility] Pt), who also reviewed office notes. No prior h/o Afib noted. Recommends ASA 81mg considering Pt's non compliance, risk for falls and psychiatric history. Continue ASA 81 mg daily. 9. Fe def anemia. Cont po supplement. Hgb 12.8. Continue outpt F/U. 10. Thrush. Nystatin swish and swallow 4 times a day 10 days. 11. Staff member Carina present throughout exam. Vital Signs Vital Signs Date Time Temp Pulse Resp B/P (MAP) Pulse Ox O2 Delivery O2 Flow Rate FiO2 06/22/17 07:00 97.5 83 16 140/77 (98) 06/22/17 01:25 97 Room Air Laboratory Data Labs 24H Laboratory Tests 2 06/21/17 17:00: Urine Amphetamines Screen NEGATIVE, Urine Benzodiazepines Screen NEGATIVE, Urine Opiates Screen NEGATIVE, Urine Methadone Screen NEGATIVE, Urine Barbiturates Screen NEGATIVE, Urine Phencyclidine Screen NEGATIVE, Urine Cocaine Metabolite Screen NEGATIVE, Urine Cannabinoids Screen NEGATIVE 06/21/17 17:54: Nucleated Red Blood Cells % (auto) 0.0, Anion Gap 9, Glomerular Filtration Rate > 60.0, Calcium Level 9.0, Aspartate Amino Transf (AST/SGOT) 14, Alanine Aminotransferase (ALT/SGPT) 17, Alkaline Phosphatase 110, Total Bilirubin 0.2, Direct Bilirubin < 0.1, Total Protein 7.6, Albumin 3.6, Albumin/Globulin Ratio 0.90L, Thyroid Stimulating Hormone (TSH) 1.020, Salicylates Level < 1.7L, Acetaminophen Level < 2.0L, Ethyl Alcohol Level < 0.003 CBC/BMP Laboratory Tests 06/21/17 17:54 Red Blood Count 4.35, Mean Corpuscular Volume 86.7, Mean Corpuscular Hemoglobin 29.4, Mean Corpuscular Hemoglobin Concent 34.0, Red Cell Distribution Width 12.2 Home Medications Scheduled (Co Q-10) 100 Mg Cap, 100 MG PO DAILY (Iron) 325 Mg Tab, 325 MG PO DAILY (Paliperidone ER) 6 Mg Tab, 6 MG PO QHS Atorvastatin Calcium (Atorvastatin Calcium) 20 Mg Tab, 20 MG PO QHS Benazepril HCl (Benazepril HCl) 5 Mg Tab, 5 MG PO DAILY Calcium (Calcium) 600 Mg Tab, 600 MG PO BID Quetiapine Fumerate (Quetiapine Fumarate) 100 Mg Tab, 100 MG PO QHS Vitamin D (Drisdol) 50,000 Unit Cap, 50,000 UNIT PO ASDIRECTFridays Vitamin E (Vitamin E) 400 Unit Cap, 400 UNIT PO DAILY Allergies Coded Allergies: No Known Allergies (Verified Allergy, Unknown, 01/08/07) Lori Feliz Jun 22, 2017 09:23
[2017-06-22] MEDS: ASPIRIN 81 MG ENTERIC TAB PO SCH (09:34)
[2017-06-22] MEDS: FERROUS SULFATE 325MG TAB PO SCH (09:34)
[2017-06-22] MEDS: BENAZEPRIL 5 MG TAB PO SCH (11:04)
--- NOTE | 2017-06-22 11:59 | MHHPE ---
DATE OF ADMISSION: 06/21/2017 LEGAL STATUS ON ADMISSION: 9.39 legal status. CHIEF COMPLAINT: "I was not thinking right". HISTORY OF PRESENT ILLNESS: 57-year-old female with history of paranoid schizophrenia just discharged from our unit a few days ago was brought to the emergency department by the daughter. According to the chart patient started walking to [place], she ended up walking for miles, apparently she was angry and was going to her own house, she has been living with her daughter since her house is not ready and is in the process to be repaired. During the interview today patient reports mild paranoid thoughts, but not as severe as she was last time in our unit. Apparently, she gets easily confused, more angry, and paranoid. The patient reports that living with her daughter has been "fine". Patient reports that she likes her independence and is not used to living with people "anymore". During the interview she denies feelings of paranoia. There is no evidence of auditory or visual hallucinations. Patient is denying any side effects from the Invega, she takes 6 mg at bedtime and Seroquel 100 mg at bedtime. PAST MEDICAL HISTORY: Patient has been diagnosed with non-insulin dependent diabetes mellitus, gastroesophageal reflux disease (GERD), chronic obstructive pulmonary artery disease (COPD), dislipidemia, status post severe continuous bladder irrigation (CBI) in 2000, iron deficiency anemia, vitamin D deficiency, has history of goiter. PAST PSYCHIATRIC HISTORY: As above. Patient was diagnosed with paranoid schizophrenia, she as recently discharged from our unit, she was doing well on Invega and Seroquel. SOCIAL HISTORY: Patient is living with her daughter after discharge from our unit, they are very support and caring for the patient. Patient was living on her own before her previous admission, but she was heating the house with the stove and had no running water so she is going to stay with the daughter until the house is repaired. SUBSTANCE ABUSE HISTORY: No history of drugs or alcohol problems currently or in the past. REVIEW OF SYSTEMS: Substance abuse disorder: Negative to case questioner. Anxiety disorder: Denies any feeling of panic, agoraphobia, Obsessive Compulsive Disorder (OCD), washing hands repeatedly, checking things over and over. Somatization disorder: Screening for pain, conversion, gastrointestinal or sexual symptoms are negative. Eating disorder: Screening for dieting, use of laxatives, eating in binges is negative. Cognitive disorder: Screening for memory impairment, orientation and general information are negative for dementia or cognitive disorder. PHYSICAL EXAMINATION: As per physician's welder assistant. LABS AT ADMISSION: Her CBC is unremarkable. CMP within normal limits except BUN of 29. TSH within normal limits. Urine drug screen is negative. Blood alcohol level is negative. MENTAL STATUS EXAMINATION: The patient is dressed in [facility]. Patient is cooperative. Her speech is somewhat pressured. Has fair eye contact. Mood is anxious. Affect is blunted. Patient is oriented to time, place, person and situation. Attention and concentration are fair. Patient denies auditory or visual hallucinations. Patient has mild paranoid delusions. No suicidal or homicidal ideation. Judgment and insight is limited. DIAGNOSES: [place] I: Paranoid scitzophrenia. [place] II: Deferred. [place] III: Non-insulin dependent diabetes mellitus, GERD, COPD, dyslipademia, status post CVA, iron deficiency anemia, vitamin D deficiency, history of gouter. INITIAL TREATMENT PLAN: Patient was admitted on a 9.39 legal status. Complete history was obtained. With her permission, family will be contacted and database will be expanded. His medication regime will be reviewed and changed accordingly. She will be provided with protected environment. She will be treated with individual, group and milieu therapy. She will also receive supportive psychoeducation. Discharge planning will commence immediately. Length of stay will be between 5 and 7 days. Outpatient followup will be strongly recommended. Treatment plan will focus initially on alter thoughts, poor impulse control, self care deficit.
[2017-06-22] MEDS: NYSTATIN 500,000 U/5 ML SUSP UDC SS SCH ×3 (12:10→20:08)
[2017-06-22 18:00] VITALS: BP 116/66
[2017-06-22] MEDS: ATORVASTATIN 20 MG TAB PO SCH (20:08)
[2017-06-22] MEDS: QUEtiapine FUMARATE 100 MG TAB PO SCH (20:08)
[2017-06-23 06:40] VITALS: BP 135/70
[2017-06-23] MEDS: NYSTATIN 500,000 U/5 ML SUSP UDC SS SCH ×4 (08:14→20:03)
[2017-06-23] MEDS: ASPIRIN 81 MG ENTERIC TAB PO SCH (08:14)
[2017-06-23] MEDS: FERROUS SULFATE 325MG TAB PO SCH (08:15)
[2017-06-23] MEDS: DIVALPROEX 500 MG TAB PO SCH ×2 (08:15→20:03)
[2017-06-23] MEDS: BENAZEPRIL 5 MG TAB PO SCH (08:15)
[2017-06-23] MEDS ORDERED: INFLUENZA QUADRIVALENT PF VACCINE 0.5ML SYRINGE (90686) IM ONE (09:00)
--- NOTE | 2017-06-23 09:24 | ECGEPIP ---
Stationary ECG Study [facility] Test Date: 2017-06-22 Pat Name: YEMI PONCE Department: Room: [place] [address] Gender: F Vfx Artist: MOY : [id number] Requested By: Lori Feliz Order Number: [id number] Reading MD: Markus Norton Measurements Intervals [place] Rate: 76 P: 51 NM: 165 QRS: 54 QRSD: 89 T: 47 QT: 363 QTc: 410 Interpretive Statements SINUS RHYTHM Normal Electronically Signed On 06-23-2017 9:24:29 EST by Markus Norton
--- NOTE | 2017-06-23 15:10 | MHIPN ---
DATE: 06/23/2017 HISTORY: A 57-year-old female with history of paranoid schizophrenia, status post cerebrovascular accident (CVA), admitted to our unit after she was walking from her house to [place] which is a 28 mile distance. She was walking in the opposite direction. She admitted, "I was not thinking right." MEDICATIONS: - Depakote 500 mg by mouth twice a day - Invega 6 mg by mouth at bedtime - Seroquel 100 mg by mouth at bedtime SUBJECTIVE: "I'm feeling better today." OBJECTIVE: No major changes from yesterday at admission. The patient continues talkative, circumstantial/tangential. The patient is less paranoid. Denies auditory or visual hallucinations. Denies side effect from the medication. MENTAL STATUS EXAMINATION: The patient is dressed in [facility]. The patient is cooperative during examination. She has fair eye contact. Speech is somewhat pressured. Mood is anxious. Affect is labile. The patient denies feelings of paranoia. The patient denies auditory or visual hallucinations. Memory, attention and concentration are fair. The patient is able to contract for safety while in the hospital. Insight and judgment is limited. ASSESSMENT: 1. Paranoid delusions. 2. Confusion. PLAN: 1. Continue with Depakote 500 mg by mouth twice a day. 2. Continue Invega 6 mg by mouth at bedtime. 3. Continue Seroquel 100 mg by mouth at bedtime.
[2017-06-23 18:00] VITALS: BP 131/80
[2017-06-23] MEDS: PALIPERIDONE 6 MG ER TAB (INVEGA) PO SCH (20:03)
[2017-06-23] MEDS: QUEtiapine FUMARATE 100 MG TAB PO SCH (20:03)
[2017-06-23] MEDS: ATORVASTATIN 20 MG TAB PO SCH (20:03)
[2017-06-24 07:30] VITALS: BP 98/56
[2017-06-24] MEDS: DIVALPROEX 500 MG TAB PO SCH ×2 (08:21→20:05)
[2017-06-24] MEDS: FERROUS SULFATE 325MG TAB PO SCH (08:21)
[2017-06-24] MEDS: NYSTATIN 500,000 U/5 ML SUSP UDC SS SCH ×4 (08:21→20:04)
[2017-06-24] MEDS: ASPIRIN 81 MG ENTERIC TAB PO SCH (08:21)
[2017-06-24] MEDS: BENAZEPRIL 5 MG TAB PO SCH (08:23)
--- NOTE | 2017-06-24 16:06 | MHIPN ---
DATE: 06/24/2017 HISTORY: A 57-year-old female with a history of paranoid schizophrenia, status post cerebrovascular accident (CVA), admitted to our unit after she was walking from her house to [place], which is a 28-mile distance. She was walking in the opposite direction. She admitted, "I was not thinking right." MEDICATIONS: - Depakote 500 mg by mouth twice a day - Invega 6 mg by mouth at bedtime - Seroquel 100 mg by mouth at bedtime SUBJECTIVE: "How am I doing today." OBJECTIVE: Patient admits that she gets paranoid intermittently throughout the day. She is stating that thinks that some patients are "putting thoughts in my mind." "Is this paranoia." She is cooperative during the interview. Is compliant with the medication. Patient reports waking up frequently during the night. MENTAL STATUS EXAMINATION: Patient dressed in [facility]. Patient is cooperative during exam. Has fair eye contact. Speech is somewhat pressured. Mood is anxious. Affect is labile. Patient continues paranoid intermittently throughout the day. Patient denies auditory or visual hallucinations. Attention and concentration are fair. Patient is able to contract for safety. Insight and judgment are improving. ASSESSMENT: 1. Paranoid delusions. 2. Confusion. PLAN: 1. Continue Depakote 500 mg by mouth twice a day. 2. Invega 6 mg by mouth at bedtime. 3. Increase Seroquel to 150 mg by mouth at bedtime.
[2017-06-24 18:00] VITALS: BP 103/57
[2017-06-24] MEDS: ATORVASTATIN 20 MG TAB PO SCH (20:05)
[2017-06-24] MEDS: PALIPERIDONE 6 MG ER TAB (INVEGA) PO SCH (20:05)
[2017-06-24] MEDS ORDERED: QUEtiapine FUMARATE 50 MG TAB PO SCH (21:00)
[2017-06-25 06:38] VITALS: BP 112/74
[2017-06-25] MEDS: NYSTATIN 500,000 U/5 ML SUSP UDC SS SCH ×4 (08:29→20:19)
[2017-06-25] MEDS: FERROUS SULFATE 325MG TAB PO SCH (08:29)
[2017-06-25] MEDS: BENAZEPRIL 5 MG TAB PO SCH (08:29)
[2017-06-25] MEDS: VITAMIN D 50,000 UNITS CAPSULE (ERGOCALCIFEROL 1.25MG) PO SCH (08:29)
[2017-06-25] MEDS: ASPIRIN 81 MG ENTERIC TAB PO SCH (08:29)
[2017-06-25] MEDS: DIVALPROEX 500 MG TAB PO SCH ×2 (08:29→20:17)
[2017-06-25] MEDS ORDERED: BENZTROPINE 1 MG TAB PO PRN (09:30)
[2017-06-25] MEDS: risperiDONE 2 MG TAB PO SCH ×2 (09:55→20:17)
--- NOTE | 2017-06-25 17:45 | MHIPN ---
DATE: 06/25/2017 HISTORY: A 57-year-old female with history of paranoid schizophrenia and cerebrovascular accident (CVA). The patient was admitted for paranoid delusions. She was walking from her house to [place] which is a 28-mile distance. She was walking in the opposite direction. MEDICATIONS: - Depakote 500 mg by mouth twice a day - Seroquel 150 mg by mouth at bedtime - Invega 6 mg by mouth at bedtime SUBJECTIVE: "Are you sure they are not messing up with my medication?" OBJECTIVE: The patient continues with some degree of paranoia and mistrust, although she realizes that she may be paranoid, so yesterday she asked me if another patient was messing up with her mind. She has tendency to mistrust; however, she is improving and is compliant with medications, is motivated. It appears that the Invega is not completely targeting the psychotic symptoms so we will switch to Risperdal. MENTAL STATUS EXAMINATION: The patient is dressed in [facility]. The patient is cooperative during exam, has fair eye contact. Speech is somewhat pressured. Mood is anxious. Affect is blunted. As above, the patient continues with paranoid delusions and mistrust. No auditory or visual hallucinations. Memory, attention and concentration are fair. The patient is denying suicidal or homicidal ideations. Insight and judgment are improving. ASSESSMENT: Paranoid schizophrenia. PLAN: 1. Continue Depakote 500 mg by mouth twice a day. 2. Discontinue Invega. 3. Start Risperdal 2 mg by mouth twice a day. 4. Continue Seroquel 150 mg by mouth at bedtime.
[2017-06-25 18:00] VITALS: BP 112/71
[2017-06-25] MEDS: PALIPERIDONE 6 MG ER TAB (INVEGA) PO SCH (20:17)
[2017-06-25] MEDS: QUEtiapine FUMARATE 200 MG TAB PO SCH (20:17)
[2017-06-25] MEDS: ATORVASTATIN 20 MG TAB PO SCH (20:17)
[2017-06-26 06:40] VITALS: BP 122/76
[2017-06-26 07:46] LABS: ALBUMIN 3.3 GM/DL (3.2-5.2); ALBUMIN/GLOBULIN RATIO 0.87 (1.00-1.93); ALKALINE PHOSPHATASE 111 U/L (45-117); ALT/SGPT 22 U/L (12-78); ANION GAP 9 MEQ/L (8-16); AST/SGOT 15 U/L (7-37); BILIRUBIN,TOTAL 0.3 MG/DL (0.2-1.0); BLOOD UREA NITROGEN 19 MG/DL (7-18); CALCIUM LEVEL 8.9 MG/DL (8.5-10.1); CARBON DIOXIDE LEVEL 28 MEQ/L (21-32); CHLORIDE LEVEL 104 MEQ/L (98-107); CREATININE FOR GFR 0.74 MG/DL (0.55-1.02); GLOMERULAR FILTRATION RATE > 60.0 (>51); GLUCOSE, FASTING 100 MG/DL (70-105); POTASSIUM SERUM 4.4 MEQ/L (3.5-5.1); SODIUM LEVEL 141 MEQ/L (136-145); TOTAL PROTEIN 7.1 GM/DL (6.4-8.2)
[2017-06-26] MEDS: BENAZEPRIL 5 MG TAB PO SCH (09:45)
[2017-06-26] MEDS: FERROUS SULFATE 325MG TAB PO SCH (09:46)
[2017-06-26] MEDS: NYSTATIN 500,000 U/5 ML SUSP UDC SS SCH ×4 (09:46→20:12)
[2017-06-26] MEDS: risperiDONE 2 MG TAB PO SCH ×2 (09:46→20:11)
[2017-06-26] MEDS: DIVALPROEX 500 MG TAB PO SCH ×2 (09:46→20:11)
[2017-06-26] MEDS: ASPIRIN 81 MG ENTERIC TAB PO SCH (09:46)
[2017-06-26 10:00] VITALS: BP 122/76
--- NOTE | 2017-06-26 14:36 | MHIPNPDOC ---
[facility] Progress Note Progress Note DATE OF SERVICE: 06/26/17 HISTORY: Patient describes having paranoid thoughts yesterday, denies current paranoia. Denies depression, AVH, SI intent and plan, and manic symptoms. Reports good sleep. Denies medication side effects. VITAL SIGNS: See below. NEW TEST RESULTS: NA CURRENT MEDICATIONS: See below. MENTAL STATUS EXAMINATION: Behavior: calm, cooperative, odd Speech: anxious tone Thought processes including: linear Thought content: some paucity of thought Judgment: poor Insight: fair Orientation: did not assess Mood: OK. Affect: anxious DIAGNOSES: 1. Paranoid schizophrenia ASSESSMENT: Patient's psychotic symptoms are improving MANAGEMENT PLAN: - Continue Depakote 500 mg by mouth twice a day. - Discontinue Invega. - Start Risperdal 2 mg by mouth twice a day. - Continue Seroquel 150 mg by mouth at bedtime. - PRNs: tylenol, MOM, mylanta, trazodone TIME SPENT: 25 minutes. Vital Signs Vital Signs Date Time Temp Pulse Resp B/P (MAP) Pulse Ox O2 Delivery O2 Flow Rate FiO2 06/26/17 10:00 97.1 76 20 122/76 97 Room Air Laboratory Data 24H Labs Laboratory Tests 2 06/26/17 07:06: Anion Gap 9, Glomerular Filtration Rate > 60.0, Blood Urea Nitrogen 19H, Creatinine 0.74, Sodium Level 141, Potassium Level 4.4, Chloride Level 104, Carbon Dioxide Level 28, Calcium Level 8.9, Aspartate Amino Transf (AST/SGOT) 15 , Alanine Aminotransferase (ALT/SGPT) 22, Alkaline Phosphatase 111, Total Bilirubin 0.3, Total Protein 7.1, Albumin 3.3, Albumin/Globulin Ratio 0.87L, Valproic Acid (Depakene) Level 91.0 CBC/BMP Laboratory Tests 06/26/17 07:06 Calcium Level 8.9, Aspartate Amino Transf (AST/SGOT) 15, Alanine Aminotransferase (ALT/SGPT) 22, Alkaline Phosphatase 111, Total Bilirubin 0.3, Total Protein 7.1, Albumin 3.3 Current Medications Current Medications Acetaminophen (Tylenol Tab) 650 mg Q6HP PRN PO PAIN / FEVER; Start 06/21/17 at 19:45; Stop 07/21/17 at 19:44 Al Hydrox/Mg Hydrox/Simethicone (Mylanta) 30 ml Q4HP PRN PO HEARTBURN/ INDIGESTION; Start 06/21/17 at 19:30; Stop 07/21/17 at 19:29 Aspirin (Ecotrin) 81 mg DAILY PO Last administered on 06/26/17 09:46; Start 06/22/17 at 09:00; Stop 07/22/17 at 08:59 Atorvastatin Calcium (Lipitor) 20 mg QHS PO Last administered on 06/25/17 20: 17; Start 06/22/17 at 21:00; Stop 07/22/17 at 20:59 Benazepril HCl (Lotensin) 5 mg DAILY PO Last administered on 06/26/17 09:45; Start 06/22/17 at 09:00; Stop 07/22/17 at 08:59 Benztropine Mesylate (Cogentin) 1 mg BID PRN PO EPS; Start 06/25/17 at 09:30; Stop 07/25/17 at 09:29 Divalproex Sodium (Depakote) 500 mg BID PO Last administered on 06/26/17 09:46 ; Start 06/21/17 at 21:00; Stop 07/21/17 at 20:59 Ferrous Sulfate (Ferrous Sulfate) 325 mg DAILY PO Last administered on 09:46; Start 06/22/17 at 09:00; Stop 07/22/17 at 08:59 Home Med (Med Rec Complete!) ASDIRECTED XX ; Start 06/21/17 at 20:00; Stop 06/21/17 at 20:00; Status DC Magnesium Hydroxide (Milk Of Magnesia) 30 ml DAILYPRN PRN PO CONSTIPATION; Start 06/21/17 at 19:30; Stop 07/21/17 at 19:29 Nicotine (Nicoderm Cq 21mg) 1 patch DAILY TD ; Start 06/22/17 at 09:00; Stop at 11:01; Status DC Nystatin (Mycostatin) 5 ml QID PO Last administered on 06/22/17 09:35; Start 06/22/17 at 09:00; Stop 06/22/17 at 09:48; Status DC Nystatin (Mycostatin) 5 ml QID SS Last administered on 06/26/17 12:44; Start 06/22/17 at 13:00; Stop 06/29/17 at 12:59 Paliperidone (Invega) 6 mg QHS PO Last administered on 06/25/17 20:17; Start 06/21/17 at 21:00; Stop 07/21/17 at 20:59 Quetiapine Fumarate (SEROquel) 100 mg QHS PO Last administered on 06/23/17 20: 03; Start 06/21/17 at 21:00; Stop 06/24/17 at 10:17; Status DC Quetiapine Fumarate (SEROquel) 150 mg QHS PO Last administered on 06/24/17 20: 05; Start 06/24/17 at 21:00; Stop 06/25/17 at 09:23; Status DC Quetiapine Fumarate (SEROquel) 200 mg QHS PO Last administered on 06/25/17 20: 17; Start 06/25/17 at 21:00; Stop 07/25/17 at 20:59 Risperidone (RisperDAL) 2 mg BID PO Last administered on 06/26/17 09:46; Start 06/25/17 at 09:00; Stop 07/25/17 at 08:59 Vitamin D (Drisdol) 50,000 units Fr@0900 PO Last administered on 06/25/17 08: 29; Start 06/25/17 at 09:00; Stop 07/25/17 at 08:59 Allergies Coded Allergies: No Known Allergies (Verified Allergy, Unknown, 01/08/07) ROXANNA BRONSON MD Jun 26, 2017 14:36
[2017-06-26 18:00] VITALS: BP 98/57
[2017-06-26] MEDS: PALIPERIDONE 6 MG ER TAB (INVEGA) PO SCH (20:11)
[2017-06-26] MEDS: ATORVASTATIN 20 MG TAB PO SCH (20:11)
[2017-06-26] MEDS: QUEtiapine FUMARATE 200 MG TAB PO SCH (20:12)
[2017-06-27 06:49] VITALS: BP 94/55
[2017-06-27] MEDS: FERROUS SULFATE 325MG TAB PO SCH (08:03)
[2017-06-27] MEDS: NYSTATIN 500,000 U/5 ML SUSP UDC SS SCH ×4 (08:03→20:01)
[2017-06-27] MEDS: risperiDONE 2 MG TAB PO SCH ×2 (08:04→20:02)
[2017-06-27] MEDS: BENAZEPRIL 5 MG TAB PO SCH (08:04)
[2017-06-27] MEDS: ASPIRIN 81 MG ENTERIC TAB PO SCH (08:04)
[2017-06-27] MEDS: DIVALPROEX 500 MG TAB PO SCH ×2 (08:04→20:02)
[2017-06-27 18:00] VITALS: BP 135/72
[2017-06-27] MEDS: PALIPERIDONE 6 MG ER TAB (INVEGA) PO SCH (20:02)
[2017-06-27] MEDS: QUEtiapine FUMARATE 200 MG TAB PO SCH (20:02)
[2017-06-27] MEDS: ATORVASTATIN 20 MG TAB PO SCH (20:02)
[2017-06-28 06:00] VITALS: BP 100/58
[2017-06-28] MEDS: NYSTATIN 500,000 U/5 ML SUSP UDC SS SCH ×4 (08:26→19:58)
[2017-06-28] MEDS: risperiDONE 2 MG TAB PO SCH ×2 (08:26→19:58)
[2017-06-28] MEDS: ASPIRIN 81 MG ENTERIC TAB PO SCH (08:26)
[2017-06-28] MEDS: DIVALPROEX 500 MG TAB PO SCH ×2 (08:27→19:58)
[2017-06-28] MEDS: FERROUS SULFATE 325MG TAB PO SCH (08:27)
[2017-06-28] MEDS: BENAZEPRIL 5 MG TAB PO SCH (08:29)
[2017-06-28] MEDS ORDERED: PALIPERIDONE PALMITATE 234 MG/1.5 ML INJ (INVEGA SUSTENNA)(J2426) IM ONE (15:00)
--- NOTE | 2017-06-28 15:31 | MHIPN ---
DATE: 06/28/2017 VITAL SIGNS: Temperature 96.7, pulse 53, respiration 18, blood pressure 100/58. CURRENT MEDICATIONS: Seroquel 200 mg at bedtime, Cogentin 1 mg twice a day as needed, Risperdal 2 mg twice a day, Depakote 500 mg twice a day, Invega 6 mg at bedtime. HISTORY OF PRESENT ILLNESS: This is a 57-year-old white female living by herself with a long history of paranoid schizophrenia diagnosed approximately age 31. This is her second recent psychiatric hospitalization. She has been under the treatment of Dr. Crespo. She has had problems with insomnia which has benefited from Seroquel 200 mg at bedtime. She reports her mood is better. She is feeling less depressed. She still reports some paranoid ideation, however. She had been on oral Invega with apparently marginal response. She was then switched to Risperdal 2 mg twice a day by Dr. Crespo. Patient's Depakote level is therapeutic at 91, she likes the Depakote, she reports that she thinks better on it. We discussed the Invega Sustenna monthly injection, she is amenable to this. She does have history of poor medication compliance. She is still feeling paranoid on the unit. She is afraid of the other patients. She is afraid that they will harm her. Patient is reassured. MENTAL STATUS EXAMINATION: Patient is alert and oriented and cooperative. Patient's mood is still anxious, but no signs of depression. She denies any suicidal ideation. She denies hearing voices. She still reports paranoia, however. Insight and judgment appear fair. DIAGNOSIS: Schizophrenia, paranoid type. PLAN: Discontinue oral Invega. Start patient on loading dose of Invega Sustenna injection today. Patient will get her second loading dose later in the week.
[2017-06-28 18:00] VITALS: BP 114/72
[2017-06-28] MEDS: QUEtiapine FUMARATE 200 MG TAB PO SCH (19:58)
[2017-06-28] MEDS: ATORVASTATIN 20 MG TAB PO SCH (19:58)
[2017-06-29 07:00] VITALS: BP 116/69
[2017-06-29] MEDS: DIVALPROEX 500 MG TAB PO SCH ×2 (08:08→20:06)
[2017-06-29] MEDS: NYSTATIN 500,000 U/5 ML SUSP UDC SS SCH ×4 (08:08→20:06)
[2017-06-29] MEDS: risperiDONE 2 MG TAB PO SCH (08:08)
[2017-06-29] MEDS: FERROUS SULFATE 325MG TAB PO SCH (08:08)
[2017-06-29] MEDS: ASPIRIN 81 MG ENTERIC TAB PO SCH (08:08)
[2017-06-29] MEDS: BENAZEPRIL 5 MG TAB PO SCH (08:10)
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
[2017-06-29 18:19] VITALS: BP 108/68
[2017-06-29] MEDS: risperiDONE 1 MG TAB PO SCH (20:06)
[2017-06-29] MEDS: ATORVASTATIN 20 MG TAB PO SCH (20:06)
[2017-06-29] MEDS ORDERED: QUEtiapine FUMARATE 50 MG TAB PO SCH (21:00)
[2017-06-30 06:41] VITALS: BP 104/57
[2017-06-30] MEDS: FERROUS SULFATE 325MG TAB PO SCH (08:11)
[2017-06-30] MEDS: ASPIRIN 81 MG ENTERIC TAB PO SCH (08:11)
[2017-06-30] MEDS: DIVALPROEX 500 MG TAB PO SCH ×2 (08:11→20:16)
[2017-06-30] MEDS: NYSTATIN 500,000 U/5 ML SUSP UDC SS SCH ×4 (08:11→20:16)
[2017-06-30] MEDS: risperiDONE 1 MG TAB PO SCH (08:11)
[2017-06-30] MEDS: BENAZEPRIL 5 MG TAB PO SCH (08:12)
--- NOTE | 2017-06-30 13:41 | MHIPN ---
DATE OF SERVICE: 06/30/2017 VITAL SIGNS: Temperature 97.6, pulse 73, respiration 18, blood pressure 104/57. CURRENT MEDICATIONS: - Depakote 500 mg twice a day - Risperdal 1 mg twice a day - Seroquel 150 mg at bedtime - Invega Sustenna 234 mg intramuscular (IM) given Wednesday HISTORY OF PRESENT ILLNESS: The patient reports improvement in her mood. She slept well last night. Appetite is good. She feels that the medications have been helpful. She denies depressive thoughts. The patient has no wishes to harm self or others. Her daughter visited last night and was quite supportive. She is due for another Invega Sustenna injection on Wednesday with plans for discharge shortly thereafter. No other complaints. MENTAL STATUS EXAMINATION: Mood appears good today. No signs of depression. Anxiety is mild. She currently denies hearing voices. Paranoia less prominent. Insight and judgment remain fair. No current signs of dangerousness. DIAGNOSIS: Schizophrenia, paranoid type. PLAN: Reduce Seroquel and Risperdal dose further due to concerns of polypharmacy issues. Plans for discharge on Wednesday after her injection.
[2017-06-30 18:00] VITALS: BP 111/73
[2017-06-30] MEDS: ATORVASTATIN 20 MG TAB PO SCH (20:16)
[2017-06-30] MEDS: risperiDONE 0.5 MG TAB PO SCH (20:16)
[2017-06-30] MEDS ORDERED: QUEtiapine FUMARATE 100 MG TAB PO SCH (21:00)
[2017-07-01 06:57] VITALS: BP 107/59
[2017-07-01] MEDS: DIVALPROEX 500 MG TAB PO SCH ×2 (08:08→20:01)
[2017-07-01] MEDS: NYSTATIN 500,000 U/5 ML SUSP UDC SS SCH ×4 (08:08→20:01)
[2017-07-01] MEDS: ASPIRIN 81 MG ENTERIC TAB PO SCH (08:08)
[2017-07-01] MEDS: FERROUS SULFATE 325MG TAB PO SCH (08:08)
[2017-07-01] MEDS: BENAZEPRIL 5 MG TAB PO SCH (08:08)
[2017-07-01] MEDS: risperiDONE 0.5 MG TAB PO SCH (08:08)
--- NOTE | 2017-07-01 14:10 | MHIPN ---
DATE: 07/01/2017 VITAL SIGNS: Temperature 98.0, pulse 66, respirations 18, blood pressure 107/59. CURRENT MEDICATIONS: - Seroquel 100 mg at bedtime - Risperdal 0.5 mg twice a day - Depakote 500 mg twice a day - Invega Sustenna 156 mg IM due tomorrow HISTORY OF PRESENT ILLNESS: Patient reports no side effects on the Invega Sustenna injection. She denies any depressive symptoms. No wishes to harm self or others. She currently denies hearing any voices. She denies paranoid thoughts as well. She is future oriented. She feels comfortable with discharge plans. Her family has noticed improvement per her self report and feels comfortable with discharge plans for tomorrow. Appetite has been good. Patient sleeps well at night. Concentration is fine. Depakote blood level is therapeutic at 89.7. MENTAL STATUS EXAMINATION: Mood is good today. The patient is not depressed or suicidal. Anxiety is minimal. Paranoia is minimal. She denies hearing voices. Insight and judgment seem improved. No signs of being a danger to self or others. DIAGNOSIS: Schizophrenia, paranoid type. PLAN: Discontinue Risperdal. Seroquel dose lowered to 50 mg at bedtime. Loading does of Invega Sustenna scheduled for tomorrow then patient to be discharged.
[2017-07-01 18:00] VITALS: BP 129/62
[2017-07-01] MEDS: ATORVASTATIN 20 MG TAB PO SCH (20:01)
[2017-07-01] MEDS ORDERED: QUEtiapine FUMARATE 50 MG TAB PO SCH (21:00)
[2017-07-02 06:51] VITALS: BP 144/72
[2017-07-02] MEDS: DIVALPROEX 500 MG TAB PO SCH (08:18)
[2017-07-02] MEDS: ASPIRIN 81 MG ENTERIC TAB PO SCH (08:18)
[2017-07-02] MEDS: NYSTATIN 500,000 U/5 ML SUSP UDC SS SCH ×2 (08:18→13:21)
[2017-07-02] MEDS: FERROUS SULFATE 325MG TAB PO SCH (08:18)
[2017-07-02] MEDS: VITAMIN D 50,000 UNITS CAPSULE (ERGOCALCIFEROL 1.25MG) PO SCH (08:18)
[2017-07-02 08:19] VITALS: BP 144/72
[2017-07-02] MEDS: BENAZEPRIL 5 MG TAB PO SCH (08:19)
[2017-07-02] MEDS ORDERED: DEPA1TAB3 PO (08:41)
[2017-07-02] MEDS ORDERED: PALIPERIDONE PALMITATE 156 MG/1ML INJ(INVEGA SUSTENNA)(J2426) IM ONE (09:00)
--- NOTE | 2017-07-03 21:16 | MHDS ---
DATE OF ADMISSION: 06/21/2017 DATE OF DISCHARGE: 07/02/2017 VITAL SIGNS: Temperature 97.3, pulse 69, respirations 18, blood pressure 144/72. LABORATORY DATA: CBC and differential within normal limits. Chemistry survey within normal limits, except for elevated BUN at 19. Toxicology is negative. Valproic acid level is therapeutic on two occasions at 91.0 and 89.7. DISCHARGE DIAGNOSIS: Schizophrenia, multiple episodes, with acute episodes. DISCHARGE MEDICATIONS: - Depakote 500 mg twice a day - Invega Sustenna 156 mg intramuscular (IM) monthly, next injection due in 1 month on 08/02/2017 CHIEF COMPLAINT: Paranoia. HISTORY OF PRESENT ILLNESS: This is a 57-year-old white female with a long history of paranoid schizophrenia living with her daughter. She was admitted by Dr. Crespo. The patient had informed her daughter that she was walking the 24 mile distance to [place]. However, she was confused and ended up walking in the wrong direction. Her daughter found her and brought her into the emergency room, where the patient showed signs of psychosis. The patient had just been hospitalized here at [facility] under the care of Dr. Crespo, prescribed with Invega at 6 mg per day back in May 2017. At that hospitalization, she had gone off of her psychotropics for a two year period and had become quite psychotic, talking to herself, responding to internal stimuli and showing paranoid behavior. The patient does have a history of poor medication compliance. PROGRESS ON THE UNIT: The patient was seen initially by Dr. Crespo who continued her oral Invega and Seroquel. The patient was seen by me for the first time on 06/28/2017. The patient appeared to be a good candidate for the Invega Sustenna long acting therapy. She was agreeable to the monthly injection. Review of the records show that the patient does have a history of poor medication compliance. The patient tolerated the Invega Sustenna two loading doses well. She had no side effects. Paranoia resolved. Affect improved markedly. She denied hearing voices. The patient was more active in the milieu. The patient's daughter visited frequently and reported that the patient had been approaching baseline mental status functioning. The patient is to return home to live with the daughter for the time being after discharge. MENTAL STATUS EXAMINATION: At the time of discharge, mood and affect appeared quite good. She had good eye contact. Grooming and hygiene were fair. She denied hearing any voices. Paranoia was minimal. No signs of thought disorder. Insight and judgment seemed improved. She was not depressed or suicidal. Intelligence appears in the borderline intelligence quotient (IQ) range. No signs of dangerousness at time of discharge. ASSESSMENT: Patient appears to have reached maximal hospital benefit. PLAN: Patient is discharged to the community. Patient's Seroquel was discontinued as the patient was sleeping well on her psychotropics.
== END 2017-07-02 17:10 | disposition home or self-care (01) | DRG 885 ==
LOC: M ED 15:01 → M ED INP 19:27 → M PSY 06-22 01:25
PROVIDERS: ADMIT Psychiatry & Neurology Psychiatry; ATTEND Psychiatry & Neurology Psychiatry
DX: F20.0 Paranoid schizophrenia (principal); B37.0 Candidal stomatitis; I10 Essential (primary) hypertension; E78.5 Hyperlipidemia, unspecified; E55.9 Vitamin D deficiency, unspecified; E11.9 Type 2 diabetes mellitus without complications; D50.9 Iron deficiency anemia, unspecified; Z79.899 Other long term (current) drug therapy; Z87.891 Personal history of nicotine dependence; Z86.73 Personal history of transient ischemic attack (TIA), and cerebral infarction without residual deficits

== ENCOUNTER 2017-08-25 10:40 | Emergency (ER) | payer MEDICARE, MEDICAID ==
[2017-08-25] MEDS ORDERED: IBUPROFEN 800 MG TAB PO (11:15)
[2017-08-25] MEDS: IBUPROFEN 600 MG TAB PO (11:21)
== END 2017-08-25 12:35 | disposition home or self-care (01) ==
LOC: M ED 10:40
DX: M75.31 Calcific tendinitis of right shoulder (principal); E11.9 Type 2 diabetes mellitus without complications; I10 Essential (primary) hypertension; K21.9 Gastro-esophageal reflux disease without esophagitis; E78.5 Hyperlipidemia, unspecified; Z86.73 Personal history of transient ischemic attack (TIA), and cerebral infarction without residual deficits; Z79.899 Other long term (current) drug therapy
CPT/HCPCS: 73030

== ENCOUNTER → 2017-10-13 | Outpatient (REF) | payer MEDICARE, MEDICAID ==
[2017-10-13 17:15] LABS: BASO % 0.6 % (0.0-1.0); EOS # 0.1 10^3/uL (0.0-0.50); EOS % 1.3 % (0.0-3.0); HEMATOCRIT 40.1 % (36.0-47.0); HEMOGLOBIN 13.8 g/dl (12.0-16.0); IMMATURE GRANULOCYTE % 0.3 % (0-3.0); LYMPH # 1.9 10^3/uL (1.5-4.5); LYMPH % 26.2 % (24.0-44.0); MEAN CORPUSCULAR HEMOGLOBIN 30.7 pg (27.0-33.0); MEAN CORPUSCULAR HGB CONC 34.4 g/dl (32.0-36.5); MEAN CORPUSCULAR VOLUME 89.3 fl (80.0-96.0); MONO # 0.5 10^3/uL (0.0-0.8); MONO % 6.3 % (0.0-5.0); NEUTROPHILS # 4.7 10^3/uL (1.8-7.7); NEUTROPHILS % 65.3 % (36.0-66.0); PLATELET COUNT, AUTOMATED 221 10^3/uL (150-450); RED BLOOD COUNT 4.49 10^6/uL (4.00-5.40); RED CELL DISTRIBUTION WIDTH 12.6 % (11.5-14.5); WHITE BLOOD COUNT 7.2 10^3/uL (4.0-10.0)
[2017-10-13 18:13] LABS: PTH INTACT 65.8 PG/ML (18.5-88.0); TOTAL 25(OH) VITAMIN D 71.9 NG/ML (30.0-100.0)
[2017-10-13 19:07] LABS: ALBUMIN 3.7 GM/DL (3.2-5.2); ALBUMIN/GLOBULIN RATIO 0.88 (1.00-1.93); ALKALINE PHOSPHATASE 102 U/L (45-117); ALT/SGPT 15 U/L (12-78); ANION GAP 6 MEQ/L (8-16); AST/SGOT 10 U/L (7-37); BILIRUBIN,TOTAL 0.3 MG/DL (0.2-1.0); BLOOD UREA NITROGEN 23 MG/DL (7-18); CALCIUM LEVEL 8.9 MG/DL (8.5-10.1); CARBON DIOXIDE LEVEL 30 MEQ/L (21-32); CHLORIDE LEVEL 105 MEQ/L (98-107); CHOLESTEROL LEVEL 136 MG/DL (<200); CPK CREATINE PHOSPHOKINASE 81 U/L (26-192); CREATININE FOR GFR 0.73 MG/DL (0.55-1.30); GLOMERULAR FILTRATION RATE > 60.0 (>51); GLUCOSE, FASTING 134 MG/DL (70-100); HDL CHOLESTEROL 44 MG/DL (>40); LDL CHOLESTEROL 55.6 MG/DL (<100); NON-HDL-C 92 MG/DL; SODIUM LEVEL 141 MEQ/L (136-145); TOTAL PROTEIN 7.9 GM/DL (6.4-8.2); TRIGLYCERIDES LEVEL 182 MG/DL (<150); VALPROIC ACID (DEPAKOTE) 87.4 UG/ML (50.0-100.0)
== END ==
LOC: M SFHCPLAZ 15:30
DX: I10 Essential (primary) hypertension (principal); E78.00 Pure hypercholesterolemia, unspecified; E55.9 Vitamin D deficiency, unspecified; F20.0 Paranoid schizophrenia
CPT/HCPCS: 82550

== ENCOUNTER → 2017-12-08 | Outpatient (CLI) | payer MEDICARE | LOC: M WHC 13:08 | DX: Z12.31 Encounter for screening mammogram for malignant neoplasm of breast (principal) | CPT/HCPCS: 77067 ==

== ENCOUNTER → 2018-02-24 | Outpatient (REF) | payer MEDICARE, MEDICAID ==
[2018-02-26 14:10] LABS: HPV HYBRID CAPTURE II Negative (Negative)
== END ==
LOC: M SFHCWAGY 13:42
DX: Z12.4 Encounter for screening for malignant neoplasm of cervix (principal); Z12.12 Encounter for screening for malignant neoplasm of rectum
CPT/HCPCS: G0123

== ENCOUNTER → 2018-03-23 | Outpatient (REF) | payer MEDICARE, MEDICAID ==
[2018-03-23 18:22] LABS: BASO % 0.6 % (0.0-1.0); EOS # 0.1 10^3/uL (0.0-0.50); EOS % 2.1 % (0.0-3.0); HEMATOCRIT 37.5 % (36.0-47.0); HEMOGLOBIN 12.7 g/dl (12.0-15.5); IMMATURE GRANULOCYTE % 0.4 % (0-3.0); LYMPH # 1.9 10^3/uL (1.5-4.5); LYMPH % 28.2 % (24.0-44.0); MEAN CORPUSCULAR HEMOGLOBIN 30.8 pg (27.0-33.0); MEAN CORPUSCULAR HGB CONC 33.9 g/dl (32.0-36.5); MEAN CORPUSCULAR VOLUME 90.8 fl (80.0-96.0); MONO # 0.5 10^3/uL (0.0-0.8); MONO % 6.9 % (0.0-5.0); NEUTROPHILS # 4.1 10^3/uL (1.8-7.7); NEUTROPHILS % 61.8 % (36.0-66.0); PLATELET COUNT, AUTOMATED 214 10^3/uL (150-450); RED BLOOD COUNT 4.13 10^6/uL (4.00-5.40); RED CELL DISTRIBUTION WIDTH 13.3 % (11.5-14.5); WHITE BLOOD COUNT 6.7 10^3/uL (4.0-10.0)
[2018-03-23 18:53] LABS: PTH INTACT 54.1 PG/ML (18.5-88.0); TOTAL 25(OH) VITAMIN D 50.5 NG/ML (30.0-100.0)
[2018-03-23 18:59] LABS: CHOLESTEROL LEVEL 151 MG/DL (<200); CHOLESTEROL RISK RATIO 4.194 (<5); CPK CREATINE PHOSPHOKINASE 169 U/L (26-192); FREE T4 0.86 NG/DL (0.76-1.46); HDL CHOLESTEROL 36 MG/DL (>40); LDL CHOLESTEROL 86.4 MG/DL (<100); NON-HDL-C 115 MG/DL; TRIGLYCERIDES LEVEL 143 MG/DL (<150)
[2018-03-23 19:17] LABS: ESTIMATED AVERAGE GLUCOSE 134 MG/DL (60-110); HEMOGLOBIN A1c 6.3 %
== END ==
LOC: M SFHCPLAZ 15:19
DX: E55.9 Vitamin D deficiency, unspecified (principal); R73.01 Impaired fasting glucose; I10 Essential (primary) hypertension; E78.00 Pure hypercholesterolemia, unspecified; E66.01 Morbid (severe) obesity due to excess calories; Z68.37 Body mass index [BMI] 37.0-37.9, adult
CPT/HCPCS: 82550

== ENCOUNTER 2018-07-30 18:29 | Emergency (ER) | payer MEDICARE, MEDICAID ==
[~2018-07-30] VITALS: Ht 165.1 cm; Wt 99.5 kg
[~2018-07-30 18:29] MED LIST changes: +CAPS0.1C2 EX; +DEPA1TAB3 PO; -DRIS50002 PO; +DRIS50003 PO; +IBUP-1022 PO; +INVE117I SQ
[2018-07-30] MEDS ORDERED: BENZ0.5T PO (18:51)
[2018-07-30 20:24] LABS: BASO % 0.4 % (0.0-1.0); EOS # 0.2 10^3/uL (0.0-0.50); EOS % 1.5 % (0.0-3.0); HEMATOCRIT 38.8 % (36.0-47.0); HEMOGLOBIN 13.4 g/dl (12.0-15.5); LYMPH # 2.3 10^3/uL (1.5-4.5); LYMPH % 23.3 % (24.0-44.0); MEAN CORPUSCULAR HEMOGLOBIN 30.7 pg (27.0-33.0); MEAN CORPUSCULAR HGB CONC 34.5 g/dl (32.0-36.5); MONO # 0.5 10^3/uL (0.0-0.8); MONO % 4.8 % (0.0-5.0); NEUTROPHILS # 6.9 10^3/uL (1.8-7.7); NEUTROPHILS % 69.7 % (36.0-66.0); PLATELET COUNT, AUTOMATED 260 10^3/uL (150-450); RED BLOOD COUNT 4.36 10^6/uL (4.00-5.40); WHITE BLOOD COUNT 9.9 10^3/uL (4.0-10.0)
[2018-07-30 20:52] LABS: ALBUMIN 3.9 GM/DL (3.2-5.2); ALT/SGPT 25 U/L (12-78); BILIRUBIN,DIRECT 0.1 MG/DL (0.0-0.2); BILIRUBIN,TOTAL 0.3 MG/DL (0.2-1.0); BLOOD UREA NITROGEN 13 MG/DL (7-18); CALCIUM LEVEL 9.3 MG/DL (8.5-10.1); CARBON DIOXIDE LEVEL 23 MEQ/L (21-32); CHLORIDE LEVEL 104 MEQ/L (98-107); CPK CREATINE PHOSPHOKINASE 97 U/L (26-192); GLOMERULAR FILTRATION RATE > 60.0 (>51); GLUCOSE, FASTING 134 MG/DL (70-100); MB/CK RELATIVE INDEX 1.34 (< OR =4); SODIUM LEVEL 139 MEQ/L (136-145); TOTAL PROTEIN 7.6 GM/DL (6.4-8.2); TROPONIN I < 0.02 NG/ML (< 0.10)
[2018-07-30] MEDS ORDERED: MACR100C43 PO (21:06)
[2018-07-30 21:11] VITALS: BP 120/71
--- NOTE | 2018-07-31 08:26 | ECGEPIP ---
Stationary ECG Study [facility] - ED Test Date: 2018-07-30 Pat Name: YEMI PONCE Department: Room: - Gender: F Buckle Stapler: : 1960 Requested By: DENZEL VERMA PA-C Order Number: [id number] Reading MD: Evelyn Agarwal Measurements Intervals [place] Rate: 78 P: 57 MD: 176 QRS: 8 QRSD: 96 T: 45 QT: 367 QTc: 419 Interpretive Statements SINUS RHYTHM POSSIBLE RIGHT VENTRICULAR CONDUCTION DELAY Electronically Signed On 07-31-2018 8:25:32 EST by Evelyn Agarwal
--- NOTE | 2018-07-31 09:06 | REP ---
Chest x-ray: Two views. History: Chest tightness. Comparison study: January 09, 2007. Findings: The lungs are well inflated and clear. The pleural angles are sharp. Thoracic aorta is somewhat tortuous. Heart is near the upper range of normal in size. The CT ratio is 47.8%. Pulmonary vasculature is not increased. No pleural effusion noted. Impression: The heart is near the upper range of normal in size. Otherwise no active disease. Electronically Signed by Sylvain Cortez MD 07/31/2018 08:58 A
== END 2018-07-30 21:14 | disposition home or self-care (01) ==
LOC: M ED 18:29
DX: N39.0 Urinary tract infection, site not specified (principal); M25.511 Pain in right shoulder; M25.512 Pain in left shoulder; I45.10 Unspecified right bundle-branch block; E11.9 Type 2 diabetes mellitus without complications; I10 Essential (primary) hypertension; J44.9 Chronic obstructive pulmonary disease, unspecified; E78.5 Hyperlipidemia, unspecified; K21.9 Gastro-esophageal reflux disease without esophagitis; K57.92 Diverticulitis of intestine, part unspecified, without perforation or abscess without bleeding; F41.9 Anxiety disorder, unspecified; F32.9 Major depressive disorder, single episode, unspecified; F20.9 Schizophrenia, unspecified; Z86.73 Personal history of transient ischemic attack (TIA), and cerebral infarction without residual deficits; Z87.891 Personal history of nicotine dependence; Z79.899 Other long term (current) drug therapy

== ENCOUNTER 2018-08-09 17:10 | Emergency (ER) | payer MEDICARE, MEDICAID ==
[~2018-08-09] VITALS: Ht 167.6 cm; Wt 99.1 kg
[~2018-08-09 17:10] MED LIST changes: +BENZ0.5T PO; +MACR100C43 PO
[2018-08-09] MEDS ORDERED: OLOP1OPD OP (19:50)
[2018-08-09 19:51] VITALS: BP 120/76
== END 2018-08-09 19:56 | disposition home or self-care (01) ==
LOC: M ED 17:10
DX: H10.13 Acute atopic conjunctivitis, bilateral (principal); I10 Essential (primary) hypertension; E11.9 Type 2 diabetes mellitus without complications; J44.9 Chronic obstructive pulmonary disease, unspecified; E78.5 Hyperlipidemia, unspecified; Z87.891 Personal history of nicotine dependence

== ENCOUNTER → 2018-09-12 | Outpatient (CLI) | payer MEDICARE, MEDICAID ==
[~2018-09-12] MED LIST changes: +OLOP1OPD OP
[2018-09-12 08:46] LABS: CHOLESTEROL RISK RATIO 4.825 (<5); HEMOGLOBIN A1c 6.7 %
== END ==
LOC: M LAB 07:31
PROVIDERS: ATTEND Nurse Practitioner Psychiatric/Mental Health
DX: F20.0 Paranoid schizophrenia (principal); Z79.899 Other long term (current) drug therapy

== ENCOUNTER → 2018-10-18 | Outpatient (REF) | payer MEDICARE, MEDICAID ==
[~2018-10-18] MED LIST changes: -OLOP1OPD OP; +PATA2.5S OP
[2018-10-18 18:25] LABS: BASO % 0.6 % (0.0-1.0); EOS # 0.1 10^3/uL (0.0-0.50); EOS % 2.6 % (0.0-3.0); HEMATOCRIT 39.9 % (36.0-47.0); HEMOGLOBIN 13.5 g/dl (12.0-15.5); LYMPH # 1.5 10^3/uL (1.5-4.5); LYMPH % 28.1 % (24.0-44.0); MEAN CORPUSCULAR HEMOGLOBIN 30.5 pg (27.0-33.0); MEAN CORPUSCULAR HGB CONC 33.8 g/dl (32.0-36.5); MEAN CORPUSCULAR VOLUME 90.3 fl (80.0-96.0); MONO # 0.3 10^3/uL (0.0-0.8); MONO % 5.6 % (0.0-5.0); NEUTROPHILS # 3.3 10^3/uL (1.8-7.7); NEUTROPHILS % 62.7 % (36.0-66.0); PLATELET COUNT, AUTOMATED 249 10^3/uL (150-450); RED BLOOD COUNT 4.42 10^6/uL (4.00-5.40); WHITE BLOOD COUNT 5.3 10^3/uL (4.0-10.0)
[2018-10-18 19:12] LABS: HEMOGLOBIN A1c 6.3 %
[2018-10-18 19:21] LABS: ALBUMIN 4.1 GM/DL (3.2-5.2); ALT/SGPT 18 U/L (12-78); BILIRUBIN,TOTAL 0.4 MG/DL (0.2-1.0); BLOOD UREA NITROGEN 16 MG/DL (7-18); CALCIUM LEVEL 9.2 MG/DL (8.5-10.1); CARBON DIOXIDE LEVEL 24 MEQ/L (21-32); CHLORIDE LEVEL 105 MEQ/L (98-107); CREATININE FOR GFR 0.81 MG/DL (0.55-1.30); FREE T4 1.04 NG/DL (0.76-1.46); GLOMERULAR FILTRATION RATE > 60.0 (>51); GLUCOSE, FASTING 162 MG/DL (70-100); PTH INTACT 46.2 PG/ML (18.5-88.0); SODIUM LEVEL 139 MEQ/L (136-145); THYROID STIMULATING HORMONE 0.526 uIU/ML (0.358-3.740); TOTAL 25(OH) VITAMIN D 36.5 NG/ML (30.0-100.0); TOTAL PROTEIN 7.9 GM/DL (6.4-8.2)
== END ==
LOC: M SFHCPLAZ 15:10
PROVIDERS: ATTEND Physician Assistant Medical
DX: R73.01 Impaired fasting glucose (principal); K21.9 Gastro-esophageal reflux disease without esophagitis; E03.9 Hypothyroidism, unspecified; E55.9 Vitamin D deficiency, unspecified; E78.00 Pure hypercholesterolemia, unspecified; J31.0 Chronic rhinitis; E66.9 Obesity, unspecified; Z68.35 Body mass index [BMI] 35.0-35.9, adult
CPT/HCPCS: 36415; 80053; 82043; 82306; 83036; 83970; 84145; 84439; 84443; 85025; G0463

== ENCOUNTER 2019-02-06 08:32 | Day surgery (SDC) | payer MEDICARE, MEDICAID ==
[~2019-02-06] VITALS: Ht 166.4 cm; Wt 97.9 kg
[~2019-02-06 08:32] MED LIST changes: -BENZ0.5T PO; +BENZ0.5T23 PO; +LIDOCAINE 2% INJ 100 MG/5 ML SDV (FOR ANES.) As Ordered ONE; +LORA-243 PO; +MONT10TA2 PO; +MULTCAP PO; +OLOP0.1D OU; +PROPOFOL 200 MG/20 ML VIAL As Ordered ONE
[2019-02-06] MEDS ORDERED: PROPOFOL 200 MG/20 ML VIAL As Ordered ONE (09:54)
--- NOTE | 2019-02-06 10:22 | ROOR ---
Patient Name: Maddy Avery Procedure Date: 02/06/2019 9:26 AM Date of : 1960 Age: 59 Room: [facility] Gender: Female Note Status: Finalized Procedure: Colonoscopy Indications: Screening for colorectal malignant neoplasm Providers: Tobias Rojas MD Referring MD: Latrice MORGAN Requesting Provider: Medicines: Monitored Anesthesia Care Complications: No immediate complications. Procedure: Pre-Anesthesia Assessment: - Prior to the procedure, a History and Physical was performed, and patient medications and allergies were reviewed. The patient is competent. The risks and benefits of the procedure and the sedation options and risks were discussed with the patient. All questions were answered and informed consent was obtained. Patient identification and proposed procedure were verified by the physician, the nurse and the anesthesiologist in the procedure room. Mental Status Examination: alert and oriented. Airway Examination: normal oropharyngeal airway and neck mobility. Respiratory Examination: clear to auscultation. CV Examination: normal. Prophylactic Antibiotics: The patient does not require prophylactic antibiotics. Prior Anticoagulants: The patient has taken no previous anticoagulant or antiplatelet agents. ASA Grade Assessment: II - A patient with mild systemic disease. After reviewing the risks and benefits, the patient was deemed in satisfactory condition to undergo the procedure. The anesthesia plan was to use monitored anesthesia care (MAC). Immediately prior to administration of medications, the patient was re-assessed for adequacy to receive sedatives. The heart rate, respiratory rate, oxygen saturations, blood pressure, adequacy of pulmonary ventilation, and response to care were monitored throughout the procedure. The physical status of the patient was re-assessed after the procedure. The Colonoscope was introduced through the anus and advanced to the cecum, identified by appendiceal orifice and ileocecal valve. The colonoscopy was performed without difficulty. The patient tolerated the procedure well. The quality of the bowel preparation was good. The ileocecal valve, appendiceal orifice, and rectum were photographed. Scope insertion time was 3 minutes. Scope withdrawal time was 9 minutes. The total duration of the procedure was 12 minutes. Findings: The perianal and digital rectal examinations were normal. A 8 mm polyp was found in the ascending colon. The polyp was sessile. The polyp was removed with a cold snare. Resection and retrieval were complete. Verification of patient identification for the specimen was done by the physician and nurse using the patient's name, date and medical record number. Estimated blood loss was minimal. Four sessile polyps were found in the recto-sigmoid colon. The polyps were 4 to 6 mm in size. These polyps were removed with a cold snare. Resection and retrieval were complete. A suspected diffuse pseudomembrane was found in the descending colon. Fluid aspiration was performed through the scope suction channel. The amount of fluid collected was 20 mL. Sample(s) were sent for GI panel along with Clostridium difficile.. There was a medium-sized lipoma, 20 mm in diameter, in the transverse colon. Biopsies were taken with a cold forceps for histology. Multiple small and large-mouthed diverticula were found in the sigmoid colon. There was no evidence of diverticular bleeding. Non-bleeding external and internal hemorrhoids were found during retroflexion. The hemorrhoids were small. Impression: - One 8 mm polyp in the ascending colon, removed with a cold snare. Resected and retrieved. - Four 4 to 6 mm polyps at the recto-sigmoid colon, removed with a cold snare. Resected and retrieved. - Suspected Pseudomembranous enterocolitis. Fluid aspirate sent for Microbiology. - Medium-sized lipoma in the transverse colon. Biopsied. - Moderate diverticulosis in the sigmoid colon. There was no evidence of diverticular bleeding. - Non-bleeding external and internal hemorrhoids. Recommendation: - Patient has a contact number available for emergencies. The signs and symptoms of potential delayed complications were discussed with the patient. Return to normal activities tomorrow. Written discharge instructions were provided to the patient. - High fiber diet. - Continue present medications. - Await pathology results. - Repeat colonoscopy in 3 - 5 years for surveillance based on pathology results. - Telephone GI clinic for pathology results in 1 week. - Return to primary care physician. Tobias Rojas MD Tobias Rojas MD 02/06/2019 10:21:52 AM Electronically signed by Tobias Rojas MD Number of Addenda: 0 Note Initiated On: 02/06/2019 9:26 AM Estimated Blood Loss: Estimated blood loss: none.
[2019-02-06 10:30] VITALS: BP 124/66
== END 2019-02-06 10:48 | disposition home or self-care (01) ==
LOC: M OPP 08:32
PROVIDERS: ATTEND Internal Medicine Gastroenterology
DX: Z12.11 Encounter for screening for malignant neoplasm of colon (principal); D12.2 Benign neoplasm of ascending colon; D12.7 Benign neoplasm of rectosigmoid junction; A04.72 Enterocolitis due to Clostridium difficile, not specified as recurrent; D17.5 Benign lipomatous neoplasm of intra-abdominal organs; K64.8 Other hemorrhoids; K57.30 Diverticulosis of large intestine without perforation or abscess without bleeding; Z79.899 Other long term (current) drug therapy; Z87.891 Personal history of nicotine dependence

== ENCOUNTER → 2019-02-08 | Outpatient (REF) | payer MEDICARE, MEDICAID ==
[~2019-02-08] MED LIST changes: -LIDOCAINE 2% INJ 100 MG/5 ML SDV (FOR ANES.) As Ordered ONE; -PROPOFOL 200 MG/20 ML VIAL As Ordered ONE
[2019-02-08 19:05] LABS: FREE T4 1.06 NG/DL (0.76-1.46); THYROID STIMULATING HORMONE 0.352 uIU/ML (0.358-3.740)
== END ==
LOC: M SFHCPLAZ 14:56
PROVIDERS: ATTEND Physician Assistant Medical
DX: E03.9 Hypothyroidism, unspecified (principal)
CPT/HCPCS: 36415; 84439; 84443; 94010; G0463

== ENCOUNTER → 2019-04-04 | Outpatient (CLI) | payer MEDICARE, MEDICAID ==
--- NOTE | 2019-04-04 15:36 | REPMRS ---
Patient History The patient states she had a clinical breast exam in 03/2019. Family history of premenopausal breast cancer at age 50 or over in sister. Benign excisional biopsy of the left breast, 2002. 3D TOMOSYNTHESIS WAS PERFORMED. Digital Woman Screen Mammo: April 04, 2019 - Exam #: [id number] Bilateral CC and MLO view(s) were taken. Technologist: Connie Carvajal, Technologist Prior study comparison: December 08, 2017, digital woman screen mammo performed at [facility]. October 27, 2016, digital woman screen mammo performed at [facility]. FINDINGS: The breast tissue is heterogeneously dense. This may lower the sensitivity of mammography. There has been no change in the appearance of the mammogram from the prior studies. There is a moderate amount of residual fibroglandular tissue which is fairly symmetric. There is no interval development of dominant mass, areas of architectural distortion, or clustered microcalcification typical of malignancy. Assessment: BI-RADS/ACR category 1 mammogram. Negative Mammogram. Recommendation Routine screening mammogram in 1 year (for women over age 40). This mammogram was interpreted with the aid of an FDA-approved computer-aided dectection system. THE LIFETIME RISK OF BREAST CANCER IS 21.0%, THEREFORE SUPPLEMENTAL SCREENING MRI OF THE BREASTS IS RECOMMENDED IN 6 MONTHS. Electronically Signed By: Pradeep Reddy MD 04/04/19 [id number]
== END ==
LOC: M WHC 13:41
PROVIDERS: ATTEND Physician Assistant Medical
DX: Z12.31 Encounter for screening mammogram for malignant neoplasm of breast (principal); Z80.3 Family history of malignant neoplasm of breast; Z86.018 Personal history of other benign neoplasm
CPT/HCPCS: 77063; 77067; G0463

== ENCOUNTER → 2019-05-09 | Outpatient (REF) | payer MEDICARE, MEDICAID ==
[2019-05-09 13:34] LABS: BASO % 0.3 % (0.0-1.0); EOS # 0.1 10^3/uL (0.0-0.5); HEMATOCRIT 40.6 % (36.0-47.0); HEMOGLOBIN 13.9 g/dl (12.0-15.5); LYMPH # 1.6 10^3/uL (1.5-5.0); LYMPH % 28.3 % (24.0-44.0); MEAN CORPUSCULAR HEMOGLOBIN 31.3 pg (27.0-33.0); MEAN CORPUSCULAR HGB CONC 34.2 g/dl (32.0-36.5); MEAN CORPUSCULAR VOLUME 91.4 fl (80.0-96.0); MONO # 0.3 10^3/uL (0.0-0.8); MONO % 5.4 % (0.0-5.0); NEUTROPHILS # 3.7 10^3/uL (1.5-8.5); NEUTROPHILS % 64.8 % (36.0-66.0); PLATELET COUNT, AUTOMATED 258 10^3/uL (150-450); RED BLOOD COUNT 4.44 10^6/uL (4.00-5.40); WHITE BLOOD COUNT 5.8 10^3/uL (4.0-10.0)
[2019-05-09 13:58] LABS: ALBUMIN 3.9 GM/DL (3.2-5.2); ALT/SGPT 32 U/L (12-78); BILIRUBIN,TOTAL 0.4 MG/DL (0.2-1.0); BLOOD UREA NITROGEN 13 MG/DL (7-18); CALCIUM LEVEL 9.4 MG/DL (8.5-10.1); CARBON DIOXIDE LEVEL 29 MEQ/L (21-32); CHLORIDE LEVEL 105 MEQ/L (98-107); CHOLESTEROL LEVEL 138 MG/DL (<200); CPK CREATINE PHOSPHOKINASE 92 U/L (26-192); CREATININE FOR GFR 0.76 MG/DL (0.55-1.30); FREE T4 0.99 NG/DL (0.76-1.46); GLOMERULAR FILTRATION RATE > 60.0 (>51); GLUCOSE, FASTING 133 MG/DL (70-100); HDL CHOLESTEROL 40 MG/DL (>40); LDL CHOLESTEROL 74 MG/DL (<100); NON-HDL-C 98 MG/DL; POTASSIUM SERUM 4.3 MEQ/L (3.5-5.1); SODIUM LEVEL 139 MEQ/L (136-145); THYROID STIMULATING HORMONE 0.789 uIU/ML (0.358-3.740); TOTAL PROTEIN 7.8 GM/DL (6.4-8.2); TRIGLYCERIDES LEVEL 121 MG/DL (<150)
[2019-05-09 14:00] LABS: PTH INTACT 56.4 PG/ML (18.5-88.0); TOTAL 25(OH) VITAMIN D 35.9 NG/ML (30.0-100.0)
[2019-05-09 14:11] LABS: HEMOGLOBIN A1c 7.2 %
== END ==
LOC: M SFHCPLAZ 11:43
PROVIDERS: ATTEND Physician Assistant Medical
DX: R73.01 Impaired fasting glucose (principal); E55.9 Vitamin D deficiency, unspecified; E03.9 Hypothyroidism, unspecified; E78.00 Pure hypercholesterolemia, unspecified; I10 Essential (primary) hypertension
CPT/HCPCS: 36415; 80053; 80061; 82306; 82550; 83036; 83970; 84439; 84443; 85025; G0463

== ENCOUNTER → 2019-09-11 | Outpatient (REF) | payer MEDICARE, MEDICAID ==
[~2019-09-11] MED LIST changes: -MONT10TA2 PO; +MONT10TA4 PO; +QUET100T2 PO; -QUET1TAB8 PO
[2019-09-11 18:11] LABS: BASO % 0.6 % (0.0-1.0); EOS # 0.1 10^3/uL (0.0-0.5); EOS % 0.9 % (0.0-3.0); HEMATOCRIT 41.5 % (36.0-47.0); HEMOGLOBIN 14.1 g/dl (12.0-15.5); LYMPH # 2.1 10^3/uL (1.5-5.0); LYMPH % 30.3 % (24.0-44.0); MEAN CORPUSCULAR HEMOGLOBIN 30.6 pg (27.0-33.0); MONO # 0.4 10^3/uL (0.0-0.8); MONO % 5.9 % (0.0-5.0); NEUTROPHILS # 4.3 10^3/uL (1.5-8.5); PLATELET COUNT, AUTOMATED 274 10^3/uL (150-450); RED BLOOD COUNT 4.61 10^6/uL (4.00-5.40); WHITE BLOOD COUNT 6.9 10^3/uL (4.0-10.0)
[2019-09-11 18:37] LABS: HEMOGLOBIN A1c 6.6 %
[2019-09-11 19:02] LABS: ALBUMIN 4.1 GM/DL (3.2-5.2); ALT/SGPT 26 U/L (12-78); BILIRUBIN,TOTAL 0.5 MG/DL (0.2-1.0); BLOOD UREA NITROGEN 15 MG/DL (7-18); CALCIUM LEVEL 9.6 MG/DL (8.5-10.1); CARBON DIOXIDE LEVEL 28 MEQ/L (21-32); CHLORIDE LEVEL 105 MEQ/L (98-107); CREATININE FOR GFR 0.67 MG/DL (0.55-1.30); FREE T4 0.98 NG/DL (0.76-1.46); GLOMERULAR FILTRATION RATE > 60.0 (>51); GLUCOSE, FASTING 121 MG/DL (70-100); POTASSIUM SERUM 4.1 MEQ/L (3.5-5.1); SODIUM LEVEL 139 MEQ/L (136-145); THYROID STIMULATING HORMONE 0.705 uIU/ML (0.358-3.740); TOTAL PROTEIN 7.8 GM/DL (6.4-8.2)
[2019-09-12 10:06] LABS: PTH INTACT 51.4 PG/ML (18.5-88.0); TOTAL 25(OH) VITAMIN D 28.8 NG/ML (30.0-100.0)
== END ==
LOC: M SFHCPLAZ 15:21
PROVIDERS: ATTEND Physician Assistant Medical
DX: E55.9 Vitamin D deficiency, unspecified (principal); E03.9 Hypothyroidism, unspecified; K21.9 Gastro-esophageal reflux disease without esophagitis; R73.01 Impaired fasting glucose; E78.00 Pure hypercholesterolemia, unspecified; J44.9 Chronic obstructive pulmonary disease, unspecified
CPT/HCPCS: 36415; 80053; 82306; 83036; 83970; 84439; 84443; 85025; 94010; G0463

== ENCOUNTER → 2020-04-17 | Outpatient (REF) | payer MEDICARE, MEDICAID ==
[2020-04-17 14:18] LABS: ALBUMIN 3.9 GM/DL (3.2-5.2); ALT/SGPT 22 U/L (12-78); BILIRUBIN,TOTAL 0.6 MG/DL (0.2-1.0); BLOOD UREA NITROGEN 13 MG/DL (7-18); CALCIUM LEVEL 9.4 MG/DL (8.5-10.1); CARBON DIOXIDE LEVEL 27 MEQ/L (21-32); CHLORIDE LEVEL 109 MEQ/L (98-107); CHOLESTEROL LEVEL 107 MG/DL (<200); CHOLESTEROL RISK RATIO 2.488 (<5); CREATININE FOR GFR 0.74 MG/DL (0.55-1.30); FREE T4 1.11 NG/DL (0.76-1.46); GLOMERULAR FILTRATION RATE > 60.0 (>51); GLUCOSE, FASTING 114 MG/DL (70-100); HDL CHOLESTEROL 43 MG/DL (>40); LDL CHOLESTEROL 40 MG/DL (<100); NON-HDL-C 64 MG/DL; POTASSIUM SERUM 4.1 MEQ/L (3.5-5.1); SODIUM LEVEL 142 MEQ/L (136-145); TOTAL PROTEIN 7.2 GM/DL (6.4-8.2); TRIGLYCERIDES LEVEL 121 MG/DL (<150)
[2020-04-17 14:20] LABS: TOTAL 25(OH) VITAMIN D 36.2 NG/ML (30.0-100.0)
[2020-04-17 14:21] LABS: PTH INTACT 51.3 PG/ML (18.5-88.0)
[2020-04-17 14:48] LABS: HEMOGLOBIN A1c 5.9 %
== END ==
LOC: M PLALAB 09:47
PROVIDERS: ATTEND Physician Assistant Medical
DX: E78.00 Pure hypercholesterolemia, unspecified (principal); E03.9 Hypothyroidism, unspecified; E11.9 Type 2 diabetes mellitus without complications; E55.9 Vitamin D deficiency, unspecified; Z79.899 Other long term (current) drug therapy

== ENCOUNTER → 2020-04-26 | Outpatient (CLI) | payer MEDICARE, MEDICAID ==
[2020-04-26 10:50] LABS: BASO % 0.6 % (0.0-1.0); EOS # 0.1 10^3/uL (0.0-0.5); EOS % 1.3 % (0.0-3.0); HEMATOCRIT 39.1 % (36.0-47.0); HEMOGLOBIN 13.1 g/dl (12.0-15.5); LYMPH # 1.3 10^3/uL (1.5-5.0); LYMPH % 24.7 % (24.0-44.0); MEAN CORPUSCULAR HEMOGLOBIN 30.6 pg (27.0-33.0); MEAN CORPUSCULAR HGB CONC 33.5 g/dl (32.0-36.5); MEAN CORPUSCULAR VOLUME 91.4 fl (80.0-96.0); MONO # 0.3 10^3/uL (0.0-0.8); MONO % 4.8 % (0.0-5.0); NEUTROPHILS # 3.7 10^3/uL (1.5-8.5); NEUTROPHILS % 68.4 % (36.0-66.0); RED BLOOD COUNT 4.28 10^6/uL (4.00-5.40); WHITE BLOOD COUNT 5.4 10^3/uL (4.0-10.0)
[2020-04-26 11:12] LABS: PLATELET COUNT, AUTOMATED 195 10^3/uL (150-450)
[2020-04-26 11:20] LABS: HEMOGLOBIN A1c 5.8 %
[2020-04-26 11:31] LABS: BLOOD UREA NITROGEN 14 MG/DL (7-18); CALCIUM LEVEL 9.2 MG/DL (8.5-10.1); CARBON DIOXIDE LEVEL 26 MEQ/L (21-32); CHLORIDE LEVEL 109 MEQ/L (98-107); CREATININE FOR GFR 0.67 MG/DL (0.55-1.30); GLOMERULAR FILTRATION RATE > 60.0 (>51); GLUCOSE, FASTING 112 MG/DL (70-100); POTASSIUM SERUM 4.4 MEQ/L (3.5-5.1); SODIUM LEVEL 141 MEQ/L (136-145)
[2020-04-26 11:32] LABS: ALBUMIN 3.8 GM/DL (3.2-5.2); ALT/SGPT 21 U/L (12-78); BILIRUBIN,TOTAL 0.7 MG/DL (0.2-1.0); CHOLESTEROL LEVEL 119 MG/DL (<200); CHOLESTEROL RISK RATIO 2.586 (<5); HDL CHOLESTEROL 46 MG/DL (>40); LDL CHOLESTEROL 46 MG/DL (<100); NON-HDL-C 73 MG/DL; THYROID STIMULATING HORMONE 0.943 uIU/ML (0.358-3.740); THYROXINE (T4) 9.4 UG/DL (4.5-12.0); TOTAL 25(OH) VITAMIN D 37.4 NG/ML (30.0-100.0); TOTAL PROTEIN 7.4 GM/DL (6.4-8.2); TRIGLYCERIDES LEVEL 134 MG/DL (<150)
== END ==
LOC: M LAB 09:49
PROVIDERS: ATTEND Nurse Practitioner Psychiatric/Mental Health
DX: F20.0 Paranoid schizophrenia (principal); Z79.899 Other long term (current) drug therapy

== ENCOUNTER → 2020-06-11 | Outpatient (REF) | payer MEDICARE, MEDICAID ==
[~2020-06-11] MED LIST changes: -MONT10TA4 PO; +MONT5TAB2 PO
== END ==
LOC: M SFHCPLAZ 17:01
PROVIDERS: ATTEND Physician Assistant
DX: R05 Cough (principal); R49.0 Dysphonia
CPT/HCPCS: G0463; U0003

== ENCOUNTER → 2020-09-12 | Outpatient (REF) | payer MEDICARE, MEDICAID ==
[~2020-09-12] MED LIST changes: +ASPI-569 PO; -ASPI81TAEC PO; +MONT10TA10 PO; -MONT5TAB2 PO
[2020-09-12 13:54] LABS: BASO % 0.4 % (0.0-1.0); EOS # 0.1 10^3/uL (0.0-0.5); EOS % 2.5 % (0.0-3.0); HEMATOCRIT 37.6 % (36.0-47.0); HEMOGLOBIN 12.2 g/dl (12.0-15.5); LYMPH # 1.4 10^3/uL (1.5-5.0); LYMPH % 27.4 % (24.0-44.0); MEAN CORPUSCULAR HEMOGLOBIN 29.5 pg (27.0-33.0); MEAN CORPUSCULAR HGB CONC 32.4 g/dl (32.0-36.5); MEAN CORPUSCULAR VOLUME 90.8 fl (80.0-96.0); MONO # 0.3 10^3/uL (0.0-0.8); MONO % 5.5 % (2.0-8.0); NEUTROPHILS # 3.3 10^3/uL (1.5-8.5); PLATELET COUNT, AUTOMATED 227 10^3/uL (150-450); RED BLOOD COUNT 4.14 10^6/uL (4.00-5.40); WHITE BLOOD COUNT 5.1 10^3/uL (4.0-10.0)
[2020-09-12 14:32] LABS: HEMOGLOBIN A1c 5.4 %
[2020-09-12 14:35] LABS: ALBUMIN 3.6 GM/DL (3.2-5.2); ALT/SGPT 19 U/L (12-78); BILIRUBIN,TOTAL 0.4 MG/DL (0.2-1.0); BLOOD UREA NITROGEN 12 MG/DL (7-18); CARBON DIOXIDE LEVEL 29 MEQ/L (21-32); CHLORIDE LEVEL 107 MEQ/L (98-107); CHOLESTEROL LEVEL 135 MG/DL (<200); CHOLESTEROL RISK RATIO 2.547 (<5); CREATININE FOR GFR 0.67 MG/DL (0.55-1.30); FREE T4 0.96 NG/DL (0.76-1.46); GLOMERULAR FILTRATION RATE > 60.0 (>51); GLUCOSE, FASTING 118 MG/DL (70-100); HDL CHOLESTEROL 53 MG/DL (>40); LDL CHOLESTEROL 65 MG/DL (<100); NON-HDL-C 82 MG/DL; SODIUM LEVEL 142 MEQ/L (136-145); THYROID STIMULATING HORMONE 0.766 uIU/ML (0.358-3.740); TRIGLYCERIDES LEVEL 86 MG/DL (<150)
[2020-09-12 14:37] LABS: MAU/CREAT RATIO 74.8 MCG/MG (0.0-30.0)
[2020-09-12 14:40] LABS: PTH INTACT 49.4 PG/ML (18.5-88.0); TOTAL 25(OH) VITAMIN D 37.6 NG/ML (30.0-100.0)
== END ==
LOC: M SFHCPLAZ 11:04
PROVIDERS: ATTEND Physician Assistant Medical
DX: K21.9 Gastro-esophageal reflux disease without esophagitis (principal); E78.00 Pure hypercholesterolemia, unspecified; E03.9 Hypothyroidism, unspecified; E11.9 Type 2 diabetes mellitus without complications; E55.9 Vitamin D deficiency, unspecified
CPT/HCPCS: 36415; 80053; 80061; 82043; 82306; 83036; 83970; 84439; 84443; 85025; G0463

== ENCOUNTER → 2021-03-20 | Outpatient (CLI) | payer MEDICARE, MEDICAID ==
[2021-03-20 14:27] LABS: HEMOGLOBIN A1c 5.8 %
[2021-03-20 14:42] LABS: ALBUMIN 3.8 GM/DL (3.2-5.2); ALT/SGPT 19 U/L (12-78); BILIRUBIN,TOTAL 0.5 MG/DL (0.2-1.0); BLOOD UREA NITROGEN 10 MG/DL (7-18); CALCIUM LEVEL 9.4 MG/DL (8.5-10.1); CARBON DIOXIDE LEVEL 30 MEQ/L (21-32); CHLORIDE LEVEL 110 MEQ/L (98-107); CHOLESTEROL LEVEL 134 MG/DL (<200); CHOLESTEROL RISK RATIO 2.791 (<5); FREE T4 0.99 NG/DL (0.76-1.46); GLOMERULAR FILTRATION RATE > 60.0 (>51); GLUCOSE, FASTING 98 MG/DL (70-100); HDL CHOLESTEROL 48 MG/DL (>40); LDL CHOLESTEROL 66 MG/DL (<100); NON-HDL-C 86 MG/DL; POTASSIUM SERUM 4.2 MEQ/L (3.5-5.1); SODIUM LEVEL 143 MEQ/L (136-145); THYROID STIMULATING HORMONE 0.829 uIU/ML (0.358-3.740); TRIGLYCERIDES LEVEL 99 MG/DL (<150)
[2021-03-20 14:44] LABS: TOTAL 25(OH) VITAMIN D 32.2 NG/ML (30.0-100.0)
== END ==
LOC: M PLALAB 11:04
PROVIDERS: ATTEND Physician Assistant Medical
DX: E55.9 Vitamin D deficiency, unspecified (principal); E66.9 Obesity, unspecified; E03.9 Hypothyroidism, unspecified; E78.00 Pure hypercholesterolemia, unspecified; Z79.899 Other long term (current) drug therapy
CPT/HCPCS: 36415; 80053; 80061; 82306; 83036; 84439; 84443; G0463

== ENCOUNTER 2021-06-26 12:31 | Emergency (ER) | payer MEDICARE, MEDICAID ==
[~2021-06-26] VITALS: Ht 166.4 cm; Wt 87.0 kg
[2021-06-26 12:31] VITALS: BP 138/77
--- OUTSIDE RECORDS SUMMARY | 2021-06-26 12:38 | CCD ---
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 Active confirmed 38156209 Problem Chronic obstructive pulmonary disease, unspecified COPD ty pe J44.9 Active confirmed 60408423 Problem Personal history of tobacco use, presenting hazards to health Z87.891 Active confirmed 3697559631709 Problem Gastroesophageal reflux disease without esophagitis K21.9 Active confirmed 318803923 Problem Essential hypertension I10 Active confirmed 10740516 Problem Vitamin D deficiency E55.9 Active confirmed 54703504 Problem Generalized anxiety disorder F41.1 Active confirme d 65258025 Problem Cerebral artery occlusion with cerebral infarction I63.50 Active confirmed 2472224366150 Problem Cervical cancer screening Z12.4 Active confirmed 336310793 Problem Non morbid obesity due to excess calories E66.09 Active confirmed 009021074 Problem Impaired fasting glucose R73.01 Active confirmed 304638211 Problem Bilateral hearing loss, unspecified hearing loss type H91.93 Active confirmed 07783346 Problem Breast cancer screening Z12.39 Active confirmed 279447817 Problem Noncompliance by refusing intervention or support Z53.29 Active confirmed 725328495 Problem Type 2 diabetes mellitus wit hout complication, without long-term current use of insulin E11.9 Active confirmed 897040175 Problem Pure hypercholesterolemia E78.00 Active confirmed 186368299 Problem Hypothyroidism, unspecified type E03.9 Active conf irmed 72329589 Problem Obesity, unspecified obesity severity, unspecified obe sity type E66.9 Active confirmed 203124878 Problem Paranoid schizophrenia F20.0 Active confirmed 86830181 Problem Obesity (BMI 30-39.9) E66.9 Active confirmed 237578040 Problem Colon cancer screening Z12.11 Active confirmed 925983427 Problem Rhinitis, unspecified type J31.0 Active confirmed 85647274 ALLERGIES Allergen (clinical drug ingredient) Drug/Non Drug Allergy do cumented on EMR Reaction Allergy Type Onset Date Status Pollen Pollen nasal congestion/itchy watery eyes Drug Allergy Active ENCOUNTERS from 1962 to 2021-05-08 Encounter Location Date Provider Diagnosis [facility] [address] [facility] [phone] [place] [address] Apr, Latrice Carnes Paranoid schizophrenia F20.0 IMMUNIZATIONS Vaccine Route Administration Date Status Influenza 18 yrs & older Flublok IM Intramuscular May 23, 2019 Administered Influenza 18 yrs & older Flublok IM Intramuscular Aug 12, 2018 Administered Influenza 6mo & up Fluzone IM Intramuscular Apr 27, 2013 Admi nistered Influenza 6mo & up Fluzone IM Intramuscular May 12, 2012 Admi nistered Influenza 6mo & up Fluzone IM Intramuscular Apr 21, 2011 Admi nistered SOCIAL HISTORY Tobacco Use: Social History Observation Description Date Details (start date - stop date) Former Smoker Sex Assigned At : Social History Observation Description Sex Assigned At Unknown Education: Question Answer Notes Level of Education: Grade School 11th grade Audit Question Answer Notes Total Score: 0 Interpretation: Alcohol Education Language: Question Answer Notes Languages spoken: Dutch Sexual Hx: Question Answer Notes Had sex in the last 12 months (vaginal, oral, or anal)? No LMP: menopause Have you ever had an STD? No Drug and Alcohol Question Answer Notes Total Score: 0 Interpretation: No problems reported Alcohol Screening: Question Answer Notes Did you have a drink containing alcohol in the past year? No Points 0 Interpretation Negative BMI Care Goal Follow-Up Question Answer Notes Above Normal BMI Follow-Up Giving encouragement to exercise Tobacco Use: Question Answer Notes Are you a: former smoker How long has it been since you last smoked? 5-10 years REASON FOR REFERRAL No Information VITAL SIGNS No information MEDICATIONS Medication SIG (Take, Route, Frequency, Duration) Notes Start Da te End Date Status Pepcid 40 MG 1 tab Orally bid for 30 day(s) Active Benazepril HCl 5 MG as directed Orally Daily for 30 day(s) Active Benztropine Mesylate 0.5 MG 1 tablet at bedtime Orally Once a da y for 30 days Active Montelukast Sodium 10 MG 1 tablet Orally Once a day for 30 days Active Atorvastatin Calcium 20 mg 1 tablet Orally Once a day for 30 day(s) Active Mometasone Furoate 50 MCG/ACT 2 sprays in each nostril Nasally Once a day for 30 Days Active Invega Sustenna 156 MG/ML 1 ml Intramuscular every 3 months Active metFORMIN HCl 500 MG 1 tablet with a meal Orally bid for 30 days Active Loratadine 10 MG 1 tablet Orally Once a day for 30 Days Active lamoTRIgine 25 MG 1 tablet Orally Daily for 30 day(s) Active Drisdol 12971 UNIT 1 capsule Orally every 2 weeks for 90 day(s) Active PROCEDURES No Information RESULTS No Results REASON FOR VISIT refill MEDICAL (GENERAL) HISTORY Type Description Date Medical History diabetes mellitus type 2 Medical History obesity Medical History GERD Medical History COPD-09/2011 FEV1 1.8L (67%)/ratio 90% Medical History schizophrenia-sees provider at [facility] Medical History hyperlipidemia 2B Medical History 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 hems. Medical History HTN Surgical History AD TM repair early 80s Surgical History Colonoscopy 02/06/19 Hospitalization History paranoia 06/2017 Goals Section No Information Health Concerns No Information MEDICAL EQUIPMENT No Information MENTAL STATUS No Information FUNCTIONAL STATUS No Information ASSESSMENTS Encounter Date Diagnosis Assessment Notes Treatment Notes Treatm ent Clinical Notes Apr, Paranoid schizophrenia (ICD-10 - F20.0) PLAN OF TREATMENT Medication Medication Name Sig Start Date Stop Date Pepcid 40 MG 1 tab Orally bid for 30 day(s) Loratadine 10 MG 1 tablet Orally Once a day for 30 Days Mometasone Furoate 50 MCG/ACT 2 sprays in each nostril Nasally Once a day for 30 Days metFORMIN HCl 500 MG 1 tablet with a meal Orally bid for 30 days Benztropine Mesylate 0.5 MG 1 tablet at bedtime Orally Once a da y for 30 days Montelukast Sodium 10 MG 1 tablet Orally Once a day for 30 days Drisdol 24308 UNIT 1 capsule Orally every 2 weeks for 90 day(s) Atorvastatin Calcium 20 mg 1 tablet Orally Once a day for 30 day (s) Benazepril HCl 5 MG as directed Orally Daily for 30 day(s) Invega Sustenna 156 MG/ML 1 ml Intramuscular every 3 months Next Appt Details Provider Name:Latrice Carnes, 2021-0 07-22 10:45:00 AM, [address] [facility], , [place], [address], Insurance Providers Payer Name Payer Address Payer Phone Insured Name Patient Relati onship to Insured Coverage Start Date Coverage End Date MEDICAID [employer] [address] [facility] [id number] [facility] [address] [facility] [address] YEMI AVERY
--- OUTSIDE RECORDS SUMMARY | 2021-06-26 12:38 | CCD ---
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 Active confirmed 50097448 Problem Chronic obstructive pulmonary disease, unspecified COPD ty pe J44.9 Active confirmed 16285645 Problem Personal history of tobacco use, presenting hazards to health Z87.891 Active confirmed 4420640345822 Problem Gastroesophageal reflux disease without esophagitis K21.9 Active confirmed 519381488 Problem Essential hypertension I10 Active confirmed 48846719 Problem Vitamin D deficiency E55.9 Active confirmed 01025724 Problem Generalized anxiety disorder F41.1 Active confirme d 70569806 Problem Cerebral artery occlusion with cerebral infarction I63.50 Active confirmed 8109205326858 Problem Cervical cancer screening Z12.4 Active confirmed 767998957 Problem Non morbid obesity due to excess calories E66.09 Active confirmed 231063508 Problem Impaired fasting glucose R73.01 Active confirmed 618342216 Problem Bilateral hearing loss, unspecified hearing loss type H91.93 Active confirmed 14913040 Problem Breast cancer screening Z12.39 Active confirmed 582659557 Problem Noncompliance by refusing intervention or support Z53.29 Active confirmed 399893469 Problem Type 2 diabetes mellitus wit hout complication, without long-term current use of insulin E11.9 Active confirmed 814569155 Problem Pure hypercholesterolemia E78.00 Active confirmed 823242230 Problem Hypothyroidism, unspecified type E03.9 Active conf irmed 09842817 Problem Obesity, unspecified obesity severity, unspecified obe sity type E66.9 Active confirmed 423068808 Problem Paranoid schizophrenia F20.0 Active confirmed 77523452 Problem Obesity (BMI 30-39.9) E66.9 Active confirmed 498550263 Problem Colon cancer screening Z12.11 Active confirmed 891746822 Problem Rhinitis, unspecified type J31.0 Active confirmed 94036155 ALLERGIES Allergen (clinical drug ingredient) Drug/Non Drug Allergy do cumented on EMR Reaction Allergy Type Onset Date Status Seasonal nasal congestion/itchy watery eyes Non Drug All ergy Active ENCOUNTERS from 1962 to 2021-05-02 Encounter Location Date Provider Diagnosis [place] [address] [facility] [phone] [place] [address] 13 Apr, 2021 Sagrario Servage Essential hypertension I10 IMMUNIZATIONS Vaccine Route Administration Date Status Influenza [...] Education Language: Question Answer Notes Languages spoken: Bruneian Sexual Hx: Question Answer Notes Had sex [...] tab Orally bid for 30 day(s) Active Benztropine Mesylate 0.5 MG 1 tablet at bedtime Orally Once a day Active Benazepril HCl 5 MG as directed Orally Daily for 30 day(s) Active Montelukast Sodium 10 MG 1 tablet [...] Orally Daily for 30 day(s) Active Drisdol 96173 UNIT 1 capsule Orally every 2 weeks for 90 day(s) Active PROCEDURES No Information RESULTS No Results REASON FOR VISIT refills MEDICAL (GENERAL) HISTORY Type Description Date Medical History diabetes mellitus type 2 Medical History obesity Medical History GERD Medical History COPD-09/2011 FEV1 1.8L (67%)/ratio 90% Medical History schizophrenia-sees provider at [facility] Medical History hyperlipidemia 2B Medical History 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 Medical History anemia, iron deficiency seco ndary to menorrhagia-patient defers endoscopy Medical History vitamin D deficiency Medical History multi-nodular goiter-04/19/13 bengn FNA B thyroid nodules-[facility] IR Medical History L foot PIP/DIP OA [...] Treatment Notes Treatm ent Clinical Notes Apr, Essential hypertension (ICD-10 - I10) PLAN OF TREATMENT Medication Medication Name Sig Start Date Stop Date Pepcid 40 MG 1 tab Orally bid for 30 day(s) Loratadine 10 MG 1 tablet Orally Once a day for 30 Days Mometasone Furoate 50 MCG/ACT 2 sprays in each nostril Nasally Once a day for 30 Days metFORMIN HCl 500 MG 1 tablet with a meal Orally bid for 30 days Benazepril HCl 5 MG as directed Orally Daily for 30 day(s) Montelukast Sodium 10 MG 1 tablet Orally Once a day for 30 days Drisdol 17773 UNIT 1 capsule Orally every 2 weeks for 90 day(s) Atorvastatin Calcium 20 mg 1 tablet Orally Once a day for 30 day (s) Benztropine Mesylate 0.5 MG 1 tablet at bedtime Orally Once a da y Invega Sustenna 156 MG/ML 1 ml Intramuscular every 3 months Next Appt Details Provider Name:Latirce Carnes, 2021-0 07-22 10:45:00 AM, [address] [facility], , [place], [address], Insurance Providers Payer Name Payer Address Payer Phone Insured Name Patient Relati onship to Insured Coverage Start Date Coverage End Date [facility] [id number] [facility] [phone] YEMI PONCE self MEDICAID [facility] [address] [facility] [id number] YEMI PONCE self
--- OUTSIDE RECORDS SUMMARY | 2021-06-26 12:38 | CCD ---
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 Active confirmed 62566026 Problem Chronic obstructive pulmonary disease, unspecified COPD ty pe J44.9 Active confirmed 20028687 Problem Personal history of tobacco use, presenting hazards to health Z87.891 Active confirmed 7602051586624 Problem Gastroesophageal reflux disease without esophagitis K21.9 Active confirmed 062713081 Problem Essential hypertension I10 Active confirmed 83938708 Problem Vitamin D deficiency E55.9 Active confirmed 73348830 Problem Generalized anxiety disorder F41.1 Active confirme d 60448018 Problem Cerebral artery occlusion with cerebral infarction I63.50 Active confirmed 5967277276320 Problem Cervical cancer screening Z12.4 Active confirmed 721875590 Problem Non morbid obesity due to excess calories E66.09 Active confirmed 018769150 Problem Impaired fasting glucose R73.01 Active confirmed 422268476 Problem Bilateral hearing loss, unspecified hearing loss type H91.93 Active confirmed 46380072 Problem Breast cancer screening Z12.39 Active confirmed 007967181 Problem Noncompliance by refusing intervention or support Z53.29 Active confirmed 679983937 Problem Type 2 diabetes mellitus wit hout complication, without long-term current use of insulin E11.9 Active confirmed 286352771 Problem Pure hypercholesterolemia E78.00 Active confirmed 224610818 Problem Hypothyroidism, unspecified type E03.9 Active conf irmed 03319262 Problem Obesity, unspecified obesity severity, unspecified obe sity type E66.9 Active confirmed 749123046 Problem Paranoid schizophrenia F20.0 Active confirmed 76941044 Problem Obesity (BMI 30-39.9) E66.9 Active confirmed 425739434 Problem Colon cancer screening Z12.11 Active confirmed 993151534 Problem Rhinitis, unspecified type J31.0 Active confirmed 39233457 ALLERGIES Allergen (clinical drug ingredient) Drug/Non Drug Allergy do cumented on EMR Reaction Allergy Type Onset Date Status Pollen Pollen nasal congestion/itchy watery eyes Drug Allergy Active ENCOUNTERS from 1960 to 2021-05-30 Encounter Location Date Provider Diagnosis [place] [address] [facility] [phone] [place] [address] May, Latrice Carnes IMMUNIZATIONS Vaccine Route Administration Date Status Influenza [...] Education Language: Question Answer Notes Languages spoken: Kenyan Sexual Hx: Question Answer Notes Had sex [...] Notes Start Da te End Date Status Montelukast Sodium 10 MG 1 tablet Orally Once a day for 30 days Active Invega Sustenna 156 MG/ML 1 ml Intramuscular every 3 months Active Benztropine Mesylate 0.5 MG 1 tablet at bedtime Orally Once a da y for 30 days Active Benazepril HCl 5 MG as directed Orally Daily for 30 day(s) Active Mometasone Furoate 50 MCG/ACT 2 sprays in each nostril Nasally Once a day for 30 Days Active lamoTRIgine 25 MG 1 tablet Orally Daily for 30 day(s) Active Drisdol 12336 UNIT 1 capsule Orally every 2 weeks for 90 day(s) Active Pepcid 40 MG 1 tab Orally bid for 30 day(s) Active Loratadine 10 MG 1 tablet Orally Once a day for 30 Days Active metFORMIN HCl 500 MG 1 tablet with a meal Orally bid for 30 days Active Atorvastatin Calcium 20 mg 1 tablet Orally Once a day for 30 day(s) Active PROCEDURES No Information RESULTS No Results REASON FOR VISIT refill MEDICAL (GENERAL) HISTORY Type Description Date Medical History diabetes mellitus type 2 Medical History obesity Medical History GERD Medical History COPD-09/2011 FEV1 1.8L (67%)/ratio 90% Medical History schizophrenia-sees provider at [facility] Medical History hyperlipidemia 2B Medical History 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 Medical History anemia, iron deficiency seco ndary to menorrhagia-patient defers endoscopy Medical History vitamin D deficiency Medical History multi-nodular goiter-04/19/13 bengn FNA B thyroid nodules-[facility] IR Medical History L foot PIP/DIP OA [...] No Information FUNCTIONAL STATUS No Information ASSESSMENTS No Information PLAN OF TREATMENT Medication Medication Name Sig Start Date Stop Date Montelukast Sodium 10 MG 1 tablet Orally Once a day for 30 days Loratadine 10 MG 1 tablet Orally Once a day for 30 Days metFORMIN HCl 500 MG 1 tablet with a meal Orally bid for 30 days Pepcid 40 MG 1 tab Orally bid for 30 day(s) Benztropine Mesylate 0.5 MG 1 tablet at bedtime Orally Once a da y for 30 days Benazepril HCl 5 MG as directed Orally Daily for 30 day(s) Atorvastatin Calcium 20 mg 1 tablet Orally Once a day for 30 day (s) Mometasone Furoate 50 MCG/ACT 2 sprays in each nostril Nasally Once a day for 30 Days Invega Sustenna 156 MG/ML 1 ml Intramuscular every 3 months Drisdol 53087 UNIT 1 capsule Orally every 2 weeks for 90 day(s) Next Appt Details Provider Name:Latrice Carnes, 07-22 10:45:00 AM, [address] [facility], , [place], [address], Insurance Providers Payer Name Payer Address Payer Phone Insured Name Patient Relati onship to Insured Coverage Start Date Coverage End Date [facility] [address] [facility] [id number] YEM[place] AVERY MEDICAID [facility] [address] [facility] [address] YEM[place] AVERY
--- OUTSIDE RECORDS SUMMARY | 2021-06-26 12:38 | CCD ---
Author Author Maddy Griggs Organization Unknown Address [address] [address] Phone Care Team Providers Care Fur Sorter Name Role Phone Peg Griggs PCP Allergies, Adverse Reactions, Alerts Concept Allergy Name Reaction Severity Onset Date Status Documentation Date Phone Number Npid Taxonomy Code Taxonomy Desc Author Last Name Author Fi rst Name Concept Type [id number] divalproex Weight gain 06/12/2018 Active 04/13/2018 RXNORM Problem List Concept Problem Description Status Start Date Created Date Resolv ed Date Snomed Code F20.0 Paranoid schizophrenia Active 06/14/2017 06/14/2017 Medications Rx Norm Medication Route Route Concept Start Date Stop Date Dosage Garcia quency Duration Formula Strength Dosage Form Dosage Form Code Dosage Description Medication Id Account Npid Author First Name Author Last Name Taxonomy Code Taxonomy Desc Phone Number [phone] Invega Trinza intramuscularly 04/13/2018 every t hree months 546 mg/1.75 mL syringe [id number] [id number] [id number] Kristine Garcia [id number] Nurse Practitioner [phone] [id number] lamotrigine by mouth [id number] 08/15/2020 08/16/2021 once a day 30 200 mg tablet 52115 [id number] Kristine Garcia [id number] Nurse P nathantitioner [phone] [id number] gabapentin by mouth [id number] 04/15/2021 09/15/2021 at bedtime 30 300 mg capsule 38345 [id number] Kristine Jose [id number] [place] Practitioner [id number] Social History Social History Element Description Concept Effective Date Smoking Status Unknown if ever smoked [id number] Immunizations No Data in Section Vital Signs No Data in Section Procedures Date Concept Id Description Targeted Site Concept Targeted Site Concept Type 06/19/2021 66033 Injectable Psychotro pic Medication Administration (Injection Only) CPT Patient has no history of implantable de vices Encounters Encounter Start Date End Date Encounter Type Description Diagnosis Di agnosis Desc Location Author First Name Author Last Name Npid Taxonomy Cod e Taxonomy Desc Phone Number Location Addr1 Location Addr2 Location [facility] Location [facility] Location [facility] [id number] 06/19/2021 06/19/2021 91874 Injectable Psyc hotropic Medication Administration (Injection Only) F20.0 Paranoid schizophrenia [facility] Anson Ruvalcaba [id number] Licensed Practical Nurse [phone] [address] [place] [phone] Plan of Treatment No Data in Section Lab Results No Data in Section Instructions No Data in Section Insurance Providers Insurance Id Policy Effective Date Policy Thru Date [employer] Ava palmer [id number] 2017 Dual Complete Me dicare Community Plan [id number] 2016 MEDICAID
--- OUTSIDE RECORDS SUMMARY | 2021-06-26 12:38 | CCD ---
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 Active confirmed 68555719 Problem Chronic obstructive pulmonary disease, unspecified COPD ty pe J44.9 Active confirmed 65402407 Problem Personal history of tobacco use, presenting hazards to health Z87.891 Active confirmed 4201732556317 Problem Gastroesophageal reflux disease without esophagitis K21.9 Active confirmed 279136589 Problem Essential hypertension I10 Active confirmed 54912946 Problem Vitamin D deficiency E55.9 Active confirmed 31428799 Problem Generalized anxiety disorder F41.1 Active confirme d 85130854 Problem Cerebral artery occlusion with cerebral infarction I63.50 Active confirmed 9319313170053 Problem Cervical cancer screening Z12.4 Active confirmed 626157344 Problem Non morbid obesity due to excess calories E66.09 Active confirmed 423135685 Problem Impaired fasting glucose R73.01 Active confirmed 995460000 Problem Bilateral hearing loss, unspecified hearing loss type H91.93 Active confirmed 02440276 Problem Breast cancer screening Z12.39 Active confirmed 633265821 Problem Noncompliance by refusing intervention or support Z53.29 Active confirmed 476338697 Problem Type 2 diabetes mellitus wit hout complication, without long-term current use of insulin E11.9 Active confirmed 958371592 Problem Pure hypercholesterolemia E78.00 Active confirmed 530391428 Problem Hypothyroidism, unspecified type E03.9 Active conf irmed 72870738 Problem Obesity, unspecified obesity severity, unspecified obe sity type E66.9 Active confirmed 564095685 Problem Paranoid schizophrenia F20.0 Active confirmed 42051102 Problem Obesity (BMI 30-39.9) E66.9 Active confirmed 160054303 Problem Colon cancer screening Z12.11 Active confirmed 421381382 Problem Rhinitis, unspecified type J31.0 Active confirmed 10267086 ALLERGIES Allergen (clinical drug ingredient) Drug/Non Drug Allergy do cumented on EMR Reaction Allergy Type Onset Date Status Pollen Pollen nasal congestion/itchy watery eyes Drug Allergy Active ENCOUNTERS from 1962 to 2021-06-05 Encounter Location Date Provider Diagnosis [place] [address] [facility] [phone] [place] [address] May, Latrice Carnes Paranoid schizophrenia F20.0 IMMUNIZATIONS Vaccine [...] Education Language: Question Answer Notes Languages spoken: St Helenian Sexual Hx: Question Answer Notes Had sex [...] 1 ml Intramuscular every 3 months Active Benazepril HCl 5 MG as directed Orally Daily for 30 day(s) Active Benztropine Mesylate 0.5 MG 1 tablet at bedtime Orally Once a da y for 30 days Active Mometasone Furoate 50 MCG/ACT 2 sprays in each nostril Nasally Once a day for 30 Days Active lamoTRIgine 25 MG 1 tablet Orally Daily for 30 day(s) Active Drisdol 92824 UNIT 1 capsule Orally every 2 weeks [...] Information RESULTS No Results REASON FOR VISIT refill- Benztropine MEDICAL (GENERAL) HISTORY Type Description Date Medical [...] History multi-nodular goiter-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/13 bengn FNA B thyroid nodules-[facility] IR Medical History L foot PIP/DIP OA [...] Notes Treatment Notes Treatm ent Clinical Notes May, Paranoid schizophrenia (ICD-10 - F20.0) PLAN OF [...] 1 tab Orally bid for 30 day(s) Benazepril HCl 5 MG as directed Orally Daily for 30 day(s) Benztropine Mesylate 0.5 MG 1 tablet at bedtime Orally Once a da y for 30 days Atorvastatin Calcium 20 mg 1 tablet Orally Once a day for 30 day (s) Mometasone Furoate 50 MCG/ACT 2 sprays in each nostril Nasally Once a day for 30 Days Invega Sustenna 156 MG/ML 1 ml Intramuscular every 3 months Drisdol 54218 UNIT 1 capsule Orally every 2 weeks for 90 day(s) Next Appt Details Provider Name:Latrice Carnes, 07-22 10:45:00 AM, [address] [facility], , [place], [address], Insurance Providers Payer Name Payer Address Payer Phone Insured Name Patient Relati onship to Insured Coverage Start Date Coverage End Date MEDICAID [employer] [address] [facility] [id number] YEMI AVERY [facility] [address] [facility] [address] YEMI AVERY
--- OUTSIDE RECORDS SUMMARY | 2021-06-26 12:38 | CCD ---
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 Active confirmed 13759733 Problem Chronic obstructive pulmonary disease, unspecified COPD ty pe J44.9 Active confirmed 88543331 Problem Personal history of tobacco use, presenting hazards to health Z87.891 Active confirmed 9863843036404 Problem Gastroesophageal reflux disease without esophagitis K21.9 Active confirmed 343866953 Problem Essential hypertension I10 Active confirmed 04796653 Problem Vitamin D deficiency E55.9 Active confirmed 36561689 Problem Generalized anxiety disorder F41.1 Active confirme d 55408919 Problem Cerebral artery occlusion with cerebral infarction I63.50 Active confirmed 2749556001784 Problem Cervical cancer screening Z12.4 Active confirmed 785583490 Problem Non morbid obesity due to excess calories E66.09 Active confirmed 031300845 Problem Impaired fasting glucose R73.01 Active confirmed 144690047 Problem Bilateral hearing loss, unspecified hearing loss type H91.93 Active confirmed 89603341 Problem Breast cancer screening Z12.39 Active confirmed 770399277 Problem Noncompliance by refusing intervention or support Z53.29 Active confirmed 542984955 Problem Type 2 diabetes mellitus wit hout complication, without long-term current use of insulin E11.9 Active confirmed 439199531 Problem Pure hypercholesterolemia E78.00 Active confirmed 582563845 Problem Hypothyroidism, unspecified type E03.9 Active conf irmed 22592326 Problem Obesity, unspecified obesity severity, unspecified obe sity type E66.9 Active confirmed 642048278 Problem Paranoid schizophrenia F20.0 Active confirmed 32042638 Problem Obesity (BMI 30-39.9) E66.9 Active confirmed 097092410 Problem Colon cancer screening Z12.11 Active confirmed 920297714 Problem Rhinitis, unspecified type J31.0 Active confirmed 10153871 ALLERGIES Allergen (clinical drug ingredient) Drug/Non Drug Allergy do cumented on EMR Reaction Allergy Type Onset Date Status Pollen Pollen nasal congestion/itchy watery eyes Drug Allergy Active ENCOUNTERS from 1962 to 2021-05-06 Encounter Location Date Provider Diagnosis [place] [address] [facility] [phone] [place] [address] Apr, Latrice Carnes Essential hypertension I10 IMMUNIZATIONS Vaccine Route Administration [...] Education Language: Question Answer Notes Languages spoken: Greenlandic Sexual Hx: Question Answer Notes Had sex [...] at bedtime Orally Once a day Active Montelukast Sodium 10 MG 1 tablet Orally Once a day for 30 days Active Benazepril HCl 5 MG as directed Orally Daily for 30 day(s) Active Atorvastatin Calcium 20 mg 1 tablet [...] Orally Daily for 30 day(s) Active Drisdol 67713 UNIT 1 capsule Orally every 2 weeks for 90 day(s) Active PROCEDURES No Information RESULTS No Results REASON FOR VISIT refill MEDICAL (GENERAL) HISTORY Type Description Date Medical History diabetes mellitus type 2 Medical History obesity Medical History GERD Medical History COPD-09/2011 FEV1 1.8L (67%)/ratio 90% Medical History schizophrenia-sees provider at [facility] Medical History hyperlipidemia 2B Medical History 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 hems. Medical History HTN Surgical History AD TM repair early Surgical History Colonoscopy 02/06/19 Hospitalization History paranoia [...] a meal Orally bid for 30 days Montelukast Sodium 10 MG 1 tablet Orally Once a day for 30 days Benazepril HCl 5 MG as directed Orally Daily for 30 day(s) Drisdol 00200 UNIT 1 capsule Orally every 2 weeks for 90 day(s) Atorvastatin Calcium 20 mg 1 tablet Orally Once a day for 30 day (s) Benztropine Mesylate 0.5 MG 1 tablet at bedtime Orally Once a da y Invega Sustenna 156 MG/ML 1 ml Intramuscular every 3 months Next Appt Details Provider Name:Latrice Carnes, 2021-0 07-22 10:45:00 AM, [address] [facility], , [place], [address], Insurance Providers Payer Name Payer Address Payer Phone Insured Name Patient Relati onship to Insured Coverage Start Date Coverage End Date [facility] [address] [facility] [phone] YEMI AVERY self MEDICAID [facility] SYSTEM[facility] [address] [facility] [address] YEMI AVERY self
--- OUTSIDE RECORDS SUMMARY | 2021-06-26 12:38 | CCD ---
Author Author [facility] Organization Unknown Address [address] [address] Phone Care Team Providers Care Hand Singer Name Role Phone Kristine Garcia PCP Allergies, Adverse Reactions, Alerts Concept Allergy Name Reaction Severity Onset Date Status Documentation Date Phone Number Npid Taxonomy Code Taxonomy Desc Author Last Name Author Fi rst Name Concept Type [id number] divalproex Weight gain 06/12/2018 Active 04/13/2018 RXNORM [...] Name Taxonomy Code Taxonomy Desc Phone Number [phone] Invega Trinza intramuscularly 04/13/2018 every t hree months 546 mg/1.75 mL syringe 83991 [id number] [id number] Kristine Garcia [id number] 000X Nurse Practitioner [phone] lamotrigine by mouth [id number] 08/15/2020 07/18/2021 once a day 30 200 mg tablet 56770 350615 [id number] Kristine Garcia [id number] Nurse P guillaumeer [phone] 867387 gabapentin by mouth [id number] 04/15/2021 08/17/2021 at bedtime 30 300 mg capsule 01837 376149 [id number] Kristine Garcia [id number] Ava pizano Practitioner [id number] Social History Social History Element Description Concept Effective Date Smoking Status Unknown if ever smoked [id number] 49031090 Immunizations No Data in Section Vital Signs No Data in Section Procedures Date Concept Id Description Targeted Site Concept Targeted Site Concept Type 05/19/2021 77366 Psychiatric Diagnostic Evaluation with Medical Services CPT Patient has no history of implantable de vices Encounters Encounter Start Date End Date Encounter Type Description Diagnosis Di agnosis Desc Location Author First Name Author Last Name Npid Taxonomy Cod e Taxonomy Desc Phone Number Location Addr1 Location Addr2 Location [facility] Location Sta te Location Zip [id number] 05/19/2021 05/19/2021 [address] [facility] Susan gnostic Evaluation with Medical Services F20.0 Paranoid schizophrenia [facility] Kristine [phone] [id number] Nurse Practitioner [phone] [address] Plan of Treatment No Data in Section Lab Results No Data in Section Instructions No Data in Section Functional Cognitive Status No Data in Section Insurance Providers Insurance Id Policy Effective Date Policy Thru Date CureLauncher Ava palmer [id number] 2017 Dual Complete Me dicare Community Plan [id number] 2016 MEDICAID
--- OUTSIDE RECORDS SUMMARY | 2021-06-26 12:38 | CCD ---
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 Active confirmed 18856098 Problem Chronic obstructive pulmonary disease, unspecified COPD ty pe J44.9 Active confirmed 71978525 Problem Personal history of tobacco use, presenting hazards to health Z87.891 Active confirmed 8995316709505 Problem Gastroesophageal reflux disease without esophagitis K21.9 Active confirmed 423404874 Problem Essential hypertension I10 Active confirmed 99078198 Problem Vitamin D deficiency E55.9 Active confirmed 05039379 Problem Generalized anxiety disorder F41.1 Active confirme d 24519370 Problem Cerebral artery occlusion with cerebral infarction I63.50 Active confirmed 3675502268384 Problem Cervical cancer screening Z12.4 Active confirmed 907625619 Problem Non morbid obesity due to excess calories E66.09 Active confirmed 868848664 Problem Impaired fasting glucose R73.01 Active confirmed 440600703 Problem Bilateral hearing loss, unspecified hearing loss type H91.93 Active confirmed 21839796 Problem Breast cancer screening Z12.39 Active confirmed 213144044 Problem Noncompliance by refusing intervention or support Z53.29 Active confirmed 907329559 Problem Type 2 diabetes mellitus wit hout complication, without long-term current use of insulin E11.9 Active confirmed 304132217 Problem Pure hypercholesterolemia E78.00 Active confirmed 749560572 Problem Hypothyroidism, unspecified type E03.9 Active conf irmed 18623482 Problem Obesity, unspecified obesity severity, unspecified obe sity type E66.9 Active confirmed 008138168 Problem Paranoid schizophrenia F20.0 Active confirmed 78224963 Problem Obesity (BMI 30-39.9) E66.9 Active confirmed 020022295 Problem Colon cancer screening Z12.11 Active confirmed 700004503 Problem Rhinitis, unspecified type J31.0 Active confirmed 94839279 ALLERGIES Allergen (clinical drug ingredient) Drug/Non Drug Allergy do cumented on EMR Reaction Allergy Type Onset Date Status Pollen Pollen nasal congestion/itchy watery eyes Drug Allergy Active ENCOUNTERS from 1962 to 2021-06-05 Encounter Location Date Provider Diagnosis [place] [address] [facility] [phone] [place] [address] May, Latrice Carnes Essential hypertension I10 IMMUNIZATIONS Vaccine [...] Education Language: Question Answer Notes Languages spoken: Yi Sexual Hx: Question Answer Notes Had sex [...] Orally Daily for 30 day(s) Active Drisdol 53081 UNIT 1 capsule Orally every 2 weeks [...] Information RESULTS No Results REASON FOR VISIT refil MEDICAL (GENERAL) HISTORY Type Description Date Medical History diabetes mellitus type 2 Medical History obesity Medical History GERD Medical History COPD-09/2011 FEV1 1.8L (67%)/ratio 90% Medical History schizophrenia-sees provider at [facility] Medical History hyperlipidemia 2B Medical History 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 Medical History anemia, iron deficiency seco ndary to menorrhagia-patient defers endoscopy Medical History vitamin D deficiency Medical History multi-nodular goiter-04/19/13 bengn FNA B thyroid nodules-[facility] IR Medical History L foot PIP/DIP [...] Treatment Notes Treatm ent Clinical Notes May, Essential hypertension (ICD-10 - I10) PLAN OF [...] 1 ml Intramuscular every 3 months Drisdol 44303 UNIT 1 capsule Orally every 2 weeks for 90 day(s) Next Appt Details Provider Name:Latrice Carnes, 2021-0 07-22 10:45:00 AM, [address] [facility], , [place], [address], Insurance Providers Payer Name Payer Address Payer Phone Insured Name Patient Relati onship to Insured Coverage Start Date Coverage End Date MEDICAID [employer] [address] [facility] [id number] [address] [address] [facility] [address] [facility] [address] YEMI AVERY
--- OUTSIDE RECORDS SUMMARY | 2021-06-26 12:38 | CCD ---
Author Author [facility] Organization Unknown Address [address] [address] Phone Care Team Providers Care Leasing Machine Tender Name Role Phone Kristine Garcia PCP Allergies, Adverse Reactions, Alerts Concept Allergy Name Reaction Severity Onset Date Status Documentation Date Phone Number Npid Taxonomy Code Taxonomy Desc Author Last Name Author Fi rst Name Concept Type [id number] divalproex Weight gain 06/12/2018 Active 04/13/2018 RXNORM [...] Name Taxonomy Code Taxonomy Desc Phone Number [phone] Invega Trinza intramuscularly 04/13/2018 every t hree months 546 mg/1.75 mL syringe 94473 059575 [phone] Kristine Garcia [id number] Nurse Practitioner [phone] lamotrigine by mouth [id number] 08/15/2020 07/18/2021 once a day 30 200 mg tablet 05199 692250 [phone] Kristine Garcia [id number] Nurse P guillaumeer [phone] 396789 gabapentin by mouth [id number] 04/15/2021 08/17/2021 at bedtime 30 300 mg capsule 56236 993666 [id number] Kristine Garcia [id number] Ava pizano Practitioner [phone] Social History Social History Element Description Concept Effective Date Smoking Status Unknown if ever smoked [id number] 08830956 Immunizations No Data in Section Vital Signs No Data in Section Procedures Date Concept Id Description Targeted Site Concept Targeted Site Concept Type 06/17/2021 22327 E/M Level 3 - Established Patient CPT Patient has no history of implantable de vices Encounters Encounter Start Date End Date Encounter Type Description Diagnosis Di agnosis Desc Location Author First Name Author Last Name Npid Taxonomy Cod e Taxonomy Desc Phone Number Location Addr1 Location Addr2 Location [facility] Location Sta te Location [facility] [id number] 06/17/2021 06/17/2021 16566 E/M Level 3 - Established Pa tient F20.0 [facility] [phone] [id number] Nurse Practitioner [phone] [address] [address] Plan of Treatment No Data in Section Lab Results No Data in Section Instructions No Data in Section Functional Cognitive Status No Data in Section Insurance Providers Insurance Id Policy Effective Date Policy Thru Date Company Ava palmer [id number] 2017 Dual Complete Me dicare Community Plan [id number] 2016 MEDICAID
--- OUTSIDE RECORDS SUMMARY | 2021-06-26 12:38 | CCD ---
Author Author NikoMaddy Organization Unknown Address [address] [address] Phone Care Team Providers Care Reel Repairer Name Role Phone Dary Pope PCP Allergies, Adverse Reactions, Alerts Concept Allergy Name Reaction Severity Onset Date Status Documentation Date Phone Number Npid Taxonomy Code Taxonomy Desc Author Last Name Author Nhi rst Name Concept Type [id number] divalproex Weight gain 06/12/2018 Active 04/13/2018 RXNORM [...] Name Taxonomy Code Taxonomy Desc Phone Number [phone] Invega Trinza intramuscularly 04/13/2018 every t hree months 546 mg/1.75 mL syringe 03050 [id number] [phone] Kristine Garcia [id number] [id number] Nurse Practitioner [phone] 377687 lamotrigine by mouth [id number] 08/15/2020 06/14/2021 once a day 30 200 mg tablet 42772 356827 [id number] Kristine Garcia [id number] Nurse P nathantitioner [phone] 121914 gabapentin by mouth [id number] 04/15/2021 07/14/2021 at bedtime 30 300 mg capsule 21392 945327 [id number] Kristine Jose [id number] [place] Practitioner [phone] Social History Social History Element Description Concept Effective Date Smoking Status Unknown if ever smoked [id number] 34717032 Immunizations No Data in Section Vital Signs No Data in Section Procedures Date Concept Id Description Targeted Site Concept Targeted Site Concept Type 05/01/2021 60902 Brief Individual Psychotherapy - 30 min CPT Patient has no history of implantable de vices Encounters Encounter Start Date End Date Encounter Type Description Diagnosis Di agnosis Desc Location Author First Name Author Last Name Npid Taxonomy Cod e Taxonomy Desc Phone Number Location Addr1 Location Addr2 Location [facility] Location Sta te Location Zip [id number] 05/01/2021 05/01/2021 75059 Brief Individual Psychoth erapy - 30 min F20.0 Paranoid schizophrenia [facility] [phone] [id number] Electroneurodiagnostic Technologist [phone] [address] [address] Plan of Treatment No Data in Section Lab Results No Data in Section Instructions No Data in Section Insurance Providers Insurance Id Policy Effective Date Policy Thru Date Company N estela [id number] 2017 Dual Complete Me dicare Community Plan [id number] 2016 MEDICAID
--- OUTSIDE RECORDS SUMMARY | 2021-06-26 12:38 | CCD ---
Author Author NikoMaddy Organization Unknown Address [address] [address] Phone Care Team Providers Care Director Of Retail Name Role Phone Dary Pope PCP Allergies, Adverse Reactions, Alerts Concept Allergy Name Reaction Severity Onset Date Status Documentation Date Phone Number Npid Taxonomy Code Taxonomy Desc Author Last Name Author Nhi rst Name Concept Type 8556316 divalproex Weight gain 06/12/2018 Active 04/13/2018 RXNORM [...] Name Taxonomy Code Taxonomy Desc Phone Number [phone] Invega Trinza intramuscularly 04/13/2018 every t hree months 546 mg/1.75 mL syringe 33457 043401 [phone] Kristine Garcia [id number] 000X Nurse Practitioner [phone] 531100 lamotrigine by mouth [id number] 08/15/2020 05/26/2021 once a day 30 200 mg tablet 55074 291240 [id number] Kristine Jose [id number] Nurse P guillaumeer [phone] Social History Social History Element Description Concept Effective Date Smoking Status Unknown if ever smoked [id number] 58554534 Immunizations No Data in Section Vital Signs No Data in Section Procedures Date Concept Id Description Targeted Site Concept Targeted Site Concept Type 04/10/2021 11852 Brief Individual Psychotherapy - 30 min CPT Patient has no history of implantable de vices Encounters Encounter Start Date End Date Encounter Type Description Diagnosis Di agnosis Desc Location Author First Name Author Last Name Npid Taxonomy Cod e Taxonomy Desc Phone Number Location Addr1 Location Addr2 Location [facility] Location Sta te Location Zip [id number] 04/10/2021 04/10/2021 36852 Brief Individual Psychoth erapy - 30 min F20.0 Paranoid schizophrenia [facility] Dary [phone] [id number] Liquor Runner [phone] [address] [address] Plan of Treatment No Data in Section Lab Results No Data in Section Instructions No Data in Section Insurance Providers Insurance Id Policy Effective Date Policy Thru Date Company N estela [id number] 2017 Dual Complete Me dicare Community Plan [id number] 2016 MEDICAID
--- OUTSIDE RECORDS SUMMARY | 2021-06-26 12:38 | CCD ---
Author Author Jose Maddy Kristine Organization Unknown Address [address] [address] Phone Care Team Providers Care Parent Coach Name Role Phone Kristine Garcia PCP Allergies, Adverse Reactions, Alerts Concept Allergy Name Reaction Severity Onset Date Status Documentation Date Phone Number Npid Taxonomy Code Taxonomy Desc Author Last Name Author Fi rst Name Concept Type [id number] divalproex Weight gain 06/12/2018 Active 04/13/2018 RXNORM [...] Name Taxonomy Code Taxonomy Desc Phone Number [id number] Invega Trinza intramuscularly 04/13/2018 every t hree months 546 mg/1.75 mL syringe [id number] [phone] Kristine Garcia [id number] Nurse Practitioner [phone] [id number] lamotrigine by mouth [id number] 08/15/2020 05/26/2021 once a day 30 200 mg tablet [id number] Kristine Garcia [id number] Nurse P shanon [id number] Social History Social History Element Description Concept Effective Date Smoking Status Unknown if ever smoked [id number] Immunizations No Data in Section Vital Signs No Data in Section Procedures Date Concept Id Description Targeted Site Concept Targeted Site Concept Type 04/15/2021 79802 E/M Level 3 - Established Patient CPT Patient has no history of implantable de vices Encounters Encounter Start Date End Date Encounter Type Description Diagnosis Di agnosis Desc Location Author First Name Author Last Name Npid Taxonomy Cod e Taxonomy Desc Phone Number Location Addr1 Location Addr2 Location City Location Sta Location Zip [id number] 04/15/2021 04/15/2021 88951 E/M Level 3 - Established [place] F20.0 Paranoid schizophrenia [facility] Jose Elham rincon [phone] [id number] Nurse Practitioner [phone] [address] [address] Plan of Treatment No Data in Section Lab Results No Data in Section Instructions No Data in Section Functional Cognitive Status No Data in Section Insurance Providers Insurance Id Policy Effective Date Policy Thru Date Company N estela [id number] 2017 Dual Complete Me dicare Community Plan [id number] MEDICAID
--- OUTSIDE RECORDS SUMMARY | 2021-06-26 12:39 | CCD ---
Author Author [facility] Organization [facility] Address Unknown Phone Unavailable Care Team Providers Care Operator [employer] Name Role Phone John Green Unavailable Dary Pope Unavailable Mary Mobley Unavailable Lela Byrne Unavailable JOSE, H COLBY PHARMACY OPERATIONS MANAGER Unavailable Unavailable JOSE, H COLBY PHARMACY OPERATIONS MANAGER Unavailable Unavailable JOSE, H COLBY PHARMACY OPERATIONS MANAGER Unavailable Unavailable JOSE, H COLBY PHARMACY OPERATIONS MANAGER Unavailable Unavailable JOSE, H COLBY PHARMACY OPERATIONS MANAGER Unavailable Unavailable JOSE, H COLBY PHARMACY OPERATIONS MANAGER Unavailable Unavailable JOSE, H COLBY PHARMACY OPERATIONS MANAGER Unavailable Unavailable JOSE, H COLBY PHARMACY OPERATIONS MANAGER Unavailable Unavailable JOSE, H COLBY PHARMACY OPERATIONS MANAGER Unavailable Unavailable Maurisio DOHERTY MD Unavailable Unavailable Maurisio DOHERTY MD Unavailable Unavailable Maurisio DOHERTY MD Unavailable Unavailable Maurisio DOHERTY MD Unavailable Unavailable Maurisio DOHERTY MD Unavailable Unavailable Maurisio DOHERTY MD Unavailable Unavailable Maurisio DOHERTY MD Unavailable Unavailable Maurisio DOHERTY MD Unavailable Unavailable Maurisio DOHERTY MD Unavailable Unavailable Maurisio DOHERTY MD Unavailable Unavailable Maurisio DOHERTY MD Unavailable Unavailable Maurisio DOHERTY MD Unavailable Unavailable Maurisio DOHERTY MD Unavailable Unavailable Maurisio DOHERTY MD Unavailable Unavailable Maurisio DOHERTY MD Unavailable Unavailable Maurisio DOHERTY MD Unavailable Unavailable Maurisio DOHERTY MD Unavailable Unavailable Maurisio DOHERTY MD Unavailable Unavailable Maurisio DOHERTY MD Unavailable Unavailable Maurisio DOHERTY MD Unavailable Unavailable Maurisio DOHERTY MD Unavailable Unavailable Maurisio DOHERTY MD Unavailable Unavailable Maurisio DOHERTY MD Unavailable Unavailable Maurisio DOHERTY MD Unavailable Unavailable Maurisio DOHERTY MD Unavailable Unavailable Maurisio DOHERTY MD Unavailable Unavailable Maurisio DOHERTY MD Unavailable Unavailable Maurisio DOHERTY MD Unavailable Unavailable Maurisio DOHERTY MD Unavailable Unavailable Maurisio DOHERTY MD Unavailable Unavailable Maurisio DOHERTY MD Unavailable Unavailable Maurisio DOHERTY MD Unavailable Unavailable Maurisio DOHERTY MD Unavailable Unavailable Maurisio DOHERTY MD Unavailable Unavailable Maurisio Mills PMH-PHARMACY OPERATIONS MANAGER Unavailable Unavailable Maurisio Mills PMH-PHARMACY OPERATIONS MANAGER Unavailable Unavailable Maurisio Mills PMH-PHARMACY OPERATIONS MANAGER Unavailable Unavailable Maurisio Mills PMH-PHARMACY OPERATIONS MANAGER Unavailable Unavailable Maurisio Mills PMH-PHARMACY OPERATIONS MANAGER Unavailable Unavailable Maurisio Mills PMH-PHARMACY OPERATIONS MANAGER Unavailable Unavailable Maurisio Mills PMH-PHARMACY OPERATIONS MANAGER Unavailable Unavailable Maurisio Mills PMH-PHARMACY OPERATIONS MANAGER Unavailable Unavailable Maurisio Mills PMH-PHARMACY OPERATIONS MANAGER Unavailable Unavailable Maurisio Mills PMH-PHARMACY OPERATIONS MANAGER Unavailable Unavailable Millie Kim Unavailable Peg Griggs Unavailable Unavailable Re-disclosure Warning The records that you are about to access may contain information from federally-assisted alcohol or drug abuse programs. If such information is present, then the following federally mandated warning applies: This information has been disclosed to you from records protected by federal confidentiality rules (42 CFR part 2). The federal rules prohibit you from making any further disclosure of this information unless further disclosure is expressly permitted by the written consent of the person to whom it pertains or as otherwise permitted by 42 CFR part 2. A general authorization for the release of medical or other information is NOT sufficient for this purpose. The Federal rules restrict any use of the information to criminally investigate or prosecute any alcohol or drug abuse patient.The records that you are about to access may contain highly sensitive health information, the redisclosure of which is protected by Article 27-F of the [facility] Public Health law. If you continue you may have access to information: Regarding HIV / AIDS; Provided by facilities licensed or operated by the [facility] Office of Mental Health; or Provided by the [facility] Office for People With Developmental Disabilities. If such information is present, then the following [facility] mandated warning applies: This information has been disclosed to you from confidential records which are protected by state law. State law prohibits you from making any further disclosure of this information without the specific written consent of the person to whom it pertains, or as otherwise permitted by law. Any unauthorized further disclosure in violation of state law may result in a fine or fpc sentence or both. A general authorization for the release of medical or other information is NOT sufficient authorization for further disc losure. Allergies and Adverse Reactions Type Description Substance Reaction Status Data Source(s ) Propensity to adverse reactions to substance divalproex Divalproex Sodium 500 MG Delayed Release Oral Tablet Active [facility]) Propensity to adverse reactions to substance divalproex Divalproex Sodium 500 MG Delayed Release Oral Tablet Active [facility] ([facility]) Family History Family Member Name Family Member Gender Family Member Status Date o f Status Description Data Source(s) Unknown Unknown Problem [facility]ENT ([facility], ) Encounters Encounter Providers Location Date Indications Data Source(s ) Injectable Psychotropic Medication Administration (Inj ection Only) Attender: Peg Griggs [facility] Custodial 06/19/2021 09:00:00 AM EST - 06/19/2021 09:00:00 AM EST [facility] ([facility]) Attender: Peg Griggs 06/19/2021 12:00:00 AM EST [facility] ([facility]) Outpatient Attender: COLBY CRUZ NP [facility] Shane paz 06/17/2021 10:00:00 AM EST - 06/17/2021 10:00:00 AM EST [facility] ([facility]) Attender: COLBY CRUZ NP 06/17/2021 12:00:00 AM EST [facility] ([facility]) [place] [address] [facility] [place] [address] 06/05/2021 12:00:00 AM EST [facility] ([facility]) [place] [address] [facility] [place] [address] 06/05/2021 12:00:00 AM EST eCW1 ([facility]) [place] [address] [facility] [place] [address] 05/28/2021 12:00:00 AM EST eCW1 ([facility]) Psychiatric Diagnostic Evaluation with Medical Service s Attender: COLBY CRUZ NP [facility] 05/19/2021 10:00:00 AM EDT - 05/19/2021 10:00:00 AM EDT [facility] ([facility]) Attender: COLBY CRUZ NP 05/19/2021 12:00:00 AM EDT [facility] ([facility]) Unknown [address] [facility] [place] [address] 05/07/2021 12:00:00 AM EDT eCW1 ([facility]) Unknown [address] [facility] [place] [address] 05/06/2021 12:00:00 AM EDT eCW1 ([facility]) Brief Individual Psychotherapy - 30 min Attender: Dary rock [facility] 05/01/2021 10:00:00 AM EDT - 05/01/2021 10:00:00 AM EDT [facility] ([facility]) Attender: Dary Pope 05/01/2021 12:00:00 AM E DT [facility] ([facility]) [place] [address] [facility] [place] [address] 04/30/2021 12:00:00 AM EDT eCW1 ([facility]) [facility]/15[facility] 11:00:00 AM EDT - 04/15/2021 11:00:00 AM EDT [facility] ([facility]) Attender: COLBY CRUZ NP 04/15/2021 12:00:00 AM EDT [facility] ([facility]) Brief Individual Psychotherapy - 30 min Attender: Dary rock [facility] 04/10/2021 11:00:00 AM EDT - 04/10/2021 11:00:00 AM EDT [facility] ([facility]) Attender: Dary Pope 04/10/2021 12:00:00 AM E DT [facility] ([facility]) Injectable Psychotropic Medication Administration (Inj ection Only) Attender: Peg Griggs [facility] 03/21/2021 09:00:00 AM EDT - 03/21/2021 09:00:00 AM EDT [facility] ([facility]) Attender: Peg Griggs 03/21/2021 12:00:00 AM EDT [facility] ([facility]) Outpatient [address] [facility] [place] [address] 03/20/2021 12:00:00 AM EDT eCW1 ([facility]) Brief Individual Psychotherapy - 30 min Attender: Dary rock [facility] 02/27/2021 10:00:00 AM EDT - 02/27/2021 10:00:00 AM EDT [facility] ([facility]) Attender: Dary Pope 02/27/2021 12:00:00 AM E DT [facility] ([facility]) [place] [address] [facility] [place] [address] 02/12/2021 12:00:00 AM EDT eCW1 ([facility]) Unknown [address] [facility] [place] [address] 02/06/2021 12:00:00 AM EDT eCW1 ([facility]) Outpatient Attender: DIANA Tang/Shahriar/Shaquille hart/Craig 01/23/2021 11:40:00 AM EDT [facility] ([facility]) Unknown [address] [facility] [place] [address] 01/09/2021 12:00:00 AM EDT eCW1 ([facility]) Outpatient Attender: Michelle Mills [facility]PHARM[facility] OPERATIONS MANAGER [facility] 01/01/2021 09:30:00 AM EDT - 01/01/2021 09:30:00 AM EDT [facility] ([facility]) Attender: Michelle Mills [facility]-PHARMACY OPERATIONS MANAGER 01/01/2021 12: 00:00 AM EDT [facility] ([facility]) Injectable Psychotropic Medication Administration (Inj ection Only) Attender: Lela Byrne [facility] 12/19/2020 09:00:00 AM EDT - 12/19/2020 09:00:00 AM EDT [facility] ([facility]) Attender: Lela Byrne 12/19/2020 12:00:00 AM EDT [facility] ([facility]) Brief Individual Psychotherapy - 30 min Attender: John thibodeaux [facility] 11/13/2020 01:00:00 AM EDT - 11/13/2020 01:00:00 AM EDT [facility] ([facility]) Attender: John Stonearge 11/13/2020 12:00:00 AM EDT [facility] ([facility]) [place] [address] [facility] [place] [address] 09/30/2020 12:00:00 AM EDT eCW1 ([facility]) Brief Individual Psychotherapy - 30 min Attender: John thibodeaux [facility] 09/24/2020 01:00:00 AM EST - 09/24/2020 01:00:00 AM EST [facility] ([facility]) Attender: John LaBarge 09/24/2020 12:00:00 AM EST [facility] ([facility]) Unknown [address] [facility] [place] [address] 09/17/2020 12:00:00 AM EST eCW1 ([facility]) Outpatient [address] [facility] [place] [address] 09/12/2020 12:00:00 AM EST eCW1 ([facility]) Unknown [address] [facility] [place] [address] 08/28/2020 12:00:00 AM EST eCW1 ([facility]) Brief Individual Psychotherapy - 30 min Attender: John thibodeaux [facility] 08/27/2020 01:00:00 AM EST - 08/27/2020 01:00:00 AM EST [facility] ([facility]) Attender: John LaBarge 08/27/2020 12:00:00 AM EST [facility] ([facility]) Outpatient Attender: Michelle Mills [facility] Custod[facility] 08/15/2020 09:30:00 AM EST - 08/15/2020 09:30:00 AM EST [facility] ([facility]) Attender: Michelle ZAMORA 08/15/2020 12: 00:00 AM EST [facility] ([facility]) Outpatient [address] [facility] [place] [address] 08/13/2020 12:00:00 AM EST eCW1 ([facility]) Unknown [address] [facility] [place] [address] 08/13/2020 12:00:00 AM EST eCW1 ([facility]) Unknown [address] [facility] [place] [address] 08/12/2020 12:00:00 AM EST eCW1 ([facility]) Brief Individual Psychotherapy - 30 min [facility] 01:00:00 AM EST - 07/30/2020 01:00:00 AM EST [facility] ([facility]) Attender: John Green 07/30/2020 12:00:00 AM EST [facility] ([facility]) Outpatient Attender: Michelle Mills [facility]-PHARMACY OPERATIONS MANAGER [facility] 07/04/2020 09:00:00 AM EST - 07/04/2020 09:00:00 AM EST [facility] ([facility]) Attender: Michelle Mills [facility]-PHARMACY OPERATIONS MANAGER 07/04/2020 12: 00:00 AM EST [facility] ([facility]) Brief Individual Psychotherapy - 30 min Attender: Millie smith [facility] 06/21/2020 01:30:00 AM EST - 06/21/2020 01:30:00 AM EST [facility] ([facility]) Attender: Millie Kim 06/21/2020 12:00:[address] [facility] ([facility]) Injectable Psychotropic Medication Administration (Inj ection Only) Attender: Peg Griggs [facility] 06/20/2020 10:00:00 AM EST - 06/20/2020 10:00:00 AM EST [facility] ([facility]) [place] [address] [facility] [place] [address] 06/20/2020 12:00:00 AM EST [facility]CW1 ([facility]) Unknown [address] [facility] [place] [address] 06/20/2020 12:00:00 AM EST eCW1 ([facility]) Attender: Peg Griggs 06/20/2020 12:00:00 AM EST [facility] ([facility]) Injectable Medication Administration w/ Monitoring & E ducation Attender: Mary Mobley [facility] Custodial 06/18/2020 02:00:00 AM EST - 06/18/2020 02:00:00 AM EST [facility] ([facility]) [place] [address] [facility] [place] [address] 06/18/2020 12:00:00 AM EST eCW1 ([facility]) Attender: Mary Mobley 06/18/2020 12:00:00 AM EST [facility] ([facility]) Outpatient Attender: Michelle [place]ALVAREZ [place] Custodial 05/30/2020 08:30:00 AM EST - 05/30/2020 08:30:00 AM EST [facility] ([facility]) Attender: Michelle ZAMORA 05/30/2020 12: 00:00 AM EST [facility] ([facility]) Outpatient [address] [facility] [address] 05/08/2020 12:00:00 AM EDT eCW1 ([facility]) Brief Individual Psychotherapy - 30 min Attender: Millie smith [facility] Custodial 05/02/2020 10:30:00 AM EDT - 05/02/2020 10:30:00 AM EDT [facility] ([facility]) Attender: Millie Kim 05/02/2020 12:00:00 AM E DT [facility] ([facility]) Outpatient Attender: Michelle GARNERALVAREZ [facility] Custodial 04/30/2020 02:00:00 AM EDT - 04/30/2020 02:00:00 AM EDT [facility] ([facility]) Attender: Michelle ZAMORA 04/30/2020 12: 00:00 AM EDT [facility] ([facility]) Functional Status Immunizations Vaccine Date Status Description Data Source(s) COVID-19 VACCINE Alex 12/28/2020 12:00:00 AM EDT completed [facility] Vaccine Series Complete: YESThis Data wa s Submitted to [facility]. INFLUENZA VIRUS VACCINE QUADRIVALENT 2019- (6 MOS AN D UP) 06/04/2020 12:00:00 AM EST completed [facility] Medications Medication Brand Name Start Date Product Form Dose Route Admi nistrative Instructions Pharmacy Instructions Status Indications Reaction Description Data Source(s) gabapentin 300 MG Oral Capsule gabapentin 04/15/2021 12:00:00 AM EDT 300 mg by mouth completed <td ID="Medica tionRxNorm_3">538736</td><td ID="MedicationMedication_3">gabapentin</td><td ID="MedicationRoute_3">by mouth</td><td ID="MedicationRouteConcept_3">G16537</td><td ID="MedicationStartDate_3">04/15/2021</td><td ID="MedicationStopDate_3">09/15/2021</td><td ID="MedicationDosageFrequency_3">at bedtime</td><td ID="MedicationDuration_3">30</td><td ID="MedicationFormulaStrength_3">300 mg</td><td ID="MedicationDosageForm_3">capsule</td><td ID="MedicationDosageFormCode_3"></td><td ID="MedicationDosageDescription_3"></td><td ID="MedicationMedicationId_3">[id number]</td><td ID="MedicationAccount_3">[id number]</td><td ID="MedicationNpid_3">[id number]</td><td ID="MedicationAuthorFirstName_3">Colby</td><td ID="MedicationAuthorLastName_3">Jose</td><td ID="MedicationTaxonomyCode_3">[id number]</td><td ID="MedicationTaxonomyDesc_3">Nurse Practitioner</td><td ID="MedicationPhoneNumber_3">[phone]</td> [facility] ([facility]) Psyllium 14.2 MG/ML Oral Suspension [Metamucil] Metamucil 01/23/2021 12:00:00 AM EDT ORAL active MED[facility] ([facility], ) lamotrigine 200 MG Oral Tablet lamotrigine 08/15/2020 12:00:00 AM EST 200 mg by mouth completed <td ID="Medica tionRxNorm_2">418057</td><td ID="MedicationMedication_2">lamotrigine</td><td ID="MedicationRoute_2">by mouth</td><td ID="MedicationRouteConcept_2">H92458</td><td ID="MedicationStartDate_2">08/15/2020</td><td ID="MedicationStopDate_2">08/16/2021</td><td ID="MedicationDosageFrequency_2">once a day</td><td ID="MedicationDuration_2">30</td><td ID="MedicationFormulaStrength_2">200 mg</td><td ID="MedicationDosageForm_2">tablet</td><td ID="MedicationDosageFormCode_2"></td><td ID="MedicationDosageDescription_2"></td><td ID="MedicationMedicationId_2">[id number]</td><td ID="MedicationAccount_2">[id number]</td><td ID="MedicationNpid_2">[id number]</td><td ID="MedicationAuthorFirstName_2">Colby</td><td ID="MedicationAuthorLastName_2">Jose</td><td ID="MedicationTaxonomyCode_2">[id number]</td><td ID="MedicationTaxonomyDesc_2">Nurse Practitioner</td><td ID="MedicationPhoneNumber_2">[phone]</td> [facility] ([facility]) Amoxicillin 875 MG / Clavulanate 125 MG Oral Tablet Amoxicillin-Pot Clavulanate 875-125 MG Amoxicillin-Pot Clavulanate 875-125 MG 08/13/2020 12:00:00 AM ES T 1.0 {tablet} active Amoxicillin-Pot Cla vulanate 875-125 MG eCW1 ([facility]) Amoxicillin 875 MG / Clavulanate 125 MG Oral Tablet Amoxicillin-Pot Clavulanate 875-125 MG Amoxicillin-Pot Clavulanate 875-125 MG 08/13/2020 12:00:00 AM ES T 1.0 {tablet} active Amoxicillin-Pot Cla vulanate 875-125 MG eCW1 ([facility]) Amoxicillin 875 MG / Clavulanate 125 MG Oral Tablet Amoxicillin-Pot Clavulanate 875-125 MG Amoxicillin-Pot Clavulanate 875-125 MG 08/13/2020 12:00:00 AM ES T 1.0 {tablet} active Amoxicillin-Pot Cla vulanate 875-125 MG eCW1 ([facility]) lamotrigine 150 MG Oral Tablet lamotrigine 07/04/2020 12:00:00 AM EST 150 mg by mouth completed <td ID="Medica tionRxNorm_3">[id number]</td><td ID="MedicationMedication_3">lamotrigine</td><td ID="MedicationRoute_3">by mouth</td><td ID="MedicationRouteConcept_3">I08612</td><td ID="MedicationStartDate_3">07/04/2020</td><td ID="MedicationStopDate_3">08/15/2020</td><td ID="MedicationDosageFrequency_3">once a day</td><td ID="MedicationDuration_3"></td><td ID="MedicationFormulaStrength_3">150 mg</td><td ID="MedicationDosageForm_3">tablet</td><td ID="MedicationDosageFormCode_3"></td><td ID="MedicationDosageDescription_3"></td><td ID="MedicationMedicationId_3">[id number]</td><td ID="MedicationAccount_3">[id number]</td><td ID="MedicationNpid_3">[id number]</td><td ID="MedicationAuthorFirstName_3">Michelle</td><td ID="MedicationAuthorLastName_3">[place]</td><td ID="MedicationTaxonomyCode_3">[id number]</td><td ID="MedicationTaxonomyDesc_3">Psychiatric/Mental Health</td><td ID="MedicationPhoneNumber_3">[phone]</td> [facility] ([facility]) 100 mg 05/30/2020 12:00:00 AM EST tablet 30 TAKE ONE TABLET BY MOUTH EVERY DAY STARTING 06/07/2020 TAKE ONE TABLET BY MOUTH EVERY DAY STARTING 06/07/2020 SOLD: 06/02/2020 [facility] 40 mg 05/09/2020 12:00:00 AM EDT tablet 60 TAKE ONE TABLET BY MOUTH TWICE A DAY TAKE ONE TABLET BY MOUTH TWICE A DAY SOLD: 05/20/2020 [facility] 40 mg 05/09/2020 12:00:00 AM EDT tablet 60 TAKE ONE TABLET BY MOUTH TWICE A DAY TAKE ONE TABLET BY MOUTH TWICE A DAY SOLD: 06/18/2020 [facility] Famotidine 40 MG Oral Tablet [Pepcid] Pepcid 40 MG Pepcid 40 MG 05/08/2020 12:00:00 AM EDT active Pepcid 4 0 MG eCW1 ([facility]) Famotidine 40 MG Oral Tablet [Pepcid] Pepcid 40 MG Pepcid 40 MG 05/08/2020 12:00:00 AM EDT active Pepcid 4 0 MG eCW1 ([facility]) Famotidine 40 MG Oral Tablet [Pepcid] Pepcid 40 MG Pepcid 40 MG 05/08/2020 12:00:00 AM EDT active Pepcid 4 0 MG eCW1 ([facility]) Famotidine 40 MG Oral Tablet [Pepcid] Pepcid 40 MG Pepcid 40 MG 05/08/2020 12:00:00 AM EDT active Pepcid 4 0 MG eCW1 ([facility]) Famotidine 40 MG Oral Tablet [Pepcid] Pepcid 40 MG Pepcid 40 MG 05/08/2020 12:00:00 AM EDT active Pepcid 4 0 MG eCW1 ([facility]) Famotidine 40 MG Oral Tablet [Pepcid] Pepcid 40 MG Pepcid 40 MG 05/08/2020 12:00:00 AM EDT active Pepcid 4 0 MG eCW1 ([facility]) Famotidine 40 MG Oral Tablet [Pepcid] Pepcid 40 MG Pepcid 40 MG 05/08/2020 12:00:00 AM EDT active Pepcid 4 0 MG eCW1 ([facility]) Famotidine 40 MG Oral Tablet [Pepcid] Pepcid 40 MG Pepcid 40 MG 05/08/2020 12:00:00 AM EDT active Pepcid 4 0 MG eCW1 ([facility]) 5 mg 05/03/2020 12:00:00 AM EDT tablet 90 TAKE ONE TABLET BY MOUTH EVERY DAY DIRECTED TAKE ONE TABLET BY MOUTH EVERY DAY DIRECTED SOLD: 05/03/2020 [facility] 300 mg 05/02/2020 12:00:00 AM EDT capsule 30 TAKE ONE CAPSULE BY MOUTH AT BEDTIME TAKE ONE CAPSULE BY MOUTH AT BEDTIME SOLD: 05/03/2020 [facility] 25 mg 05/01/2020 12:00:00 AM EDT tablet 45 TAKE ONE TABLET BY MOUTH EVERY DAY FOR 2 WEEKS THEN INCREASE TO 2 ONCE DAILY TAKE ONE TABLET BY MOUTH EVERY DAY FOR 2 WEEKS THEN INCREASE TO 2 ONCE DAILY SOLD: 05/03/2020 [facility] montelukast 10 MG Oral Tablet MONTELUKAST SODIUM 04/09/2020 12:0 0:00 AM EDT tablet 30 TAKE ONE TABLET BY MOUTH EVERY M ORNING TAKE ONE TABLET BY MOUTH EVERY MORNING SOLD: 06/02/2020 [facility] montelukast 10 MG Oral Tablet MONTELUKAST SODIUM 04/09/2020 12:0 0:00 AM EDT tablet 30 TAKE ONE TABLET BY MOUTH EVERY M ORNING TAKE ONE TABLET BY MOUTH EVERY MORNING SOLD: 05/03/2020 [facility] 10 mg 01/04/2020 12:00:00 AM EDT tablet 30 TAKE ONE TABLET BY MOUTH EVERY DAY TAKE ONE TABLET BY MOUTH EVERY DAY SOLD: 06/18/2020 [facility] 10 mg 01/04/2020 12:00:00 AM EDT tablet 30 TAKE ONE TABLET BY MOUTH EVERY DAY TAKE ONE TABLET BY MOUTH EVERY DAY SOLD: 05/20/2020 [facility] Metformin hydrochloride 500 MG Oral Tablet METFORMIN HCL 01/04/2020 12:00:00 AM EDT tablet 60 TAKE ONE TABLET BY MOUTH TWI CE A DAY WITH FOOD TAKE ONE TABLET BY MOUTH TWICE A DAY WITH FOOD SOLD: 06/18/2020 [facility] Metformin hydrochloride 500 MG Oral Tablet METFORMIN HCL 01/04/2020 12:00:00 AM EDT tablet 60 TAKE ONE TABLET BY MOUTH TWI CE A DAY WITH FOOD TAKE ONE TABLET BY MOUTH TWICE A DAY WITH FOOD SOLD: 05/20/2020 [facility] atorvastatin 20 MG Oral Tablet ATORVASTATIN CALCIUM 10/17/2019 1 2:00:00 AM EDT tablet 90 TAKE ONE TABLET BY MOUTH EVERY D AY TAKE ONE TABLET BY MOUTH EVERY DAY SOLD: 05/03/2020 [facility] gabapentin 300 MG Oral Capsule gabapentin 06/28/2019 12:00:00 AM EST 300 mg by mouth completed <td ID="Medica tionRxNorm_4">[id number]</td><td ID="MedicationMedication_4">gabapentin</td><td ID="MedicationRoute_4">by mouth</td><td ID="MedicationRouteConcept_4">L60293</td><td ID="MedicationStartDate_4">06/28/2019</td><td ID="MedicationStopDate_4">09/18/2020</td><td ID="MedicationDosageFrequency_4">at bedtime</td><td ID="MedicationDuration_4">30</td><td ID="MedicationFormulaStrength_4">300 mg</td><td ID="MedicationDosageForm_4">capsule</td><td ID="MedicationDosageFormCode_4"></td><td ID="MedicationDosageDescription_4"></td><td ID="MedicationMedicationId_4">[id number]</td><td ID="MedicationAccount_4">[id number]</td><td ID="MedicationNpid_4">[id number]</td><td ID="MedicationAuthorFirstName_4">Michelle</td><td ID="MedicationAuthorLastName_4">[place]</td><td ID="MedicationTaxonomyCode_4">[id number]</td><td ID="MedicationTaxonomyDesc_4">Psychiatric/Mental Health</td><td ID="MedicationPhoneNumber_4">[phone]</td> [facility] ([facility]) gabapentin 300 MG Oral Capsule gabapentin 06/28/2019 12:00:00 AM EST 300 mg by mouth completed <td ID="Medica tionRxNorm_1">321666</td><td ID="MedicationMedication_1">gabapentin</td><td ID="MedicationRoute_1">by mouth</td><td ID="MedicationRouteConcept_1">N93281</td><td ID="MedicationStartDate_1">06/28/2019</td><td ID="MedicationStopDate_1">12/16/2020</td><td ID="MedicationDosageFrequency_1">at bedtime</td><td ID="MedicationDuration_1">30</td><td ID="MedicationFormulaStrength_1">300 mg</td><td ID="MedicationDosageForm_1">capsule</td><td ID="MedicationDosageFormCode_1"></td><td ID="MedicationDosageDescription_1"></td><td ID="MedicationMedicationId_1">[id number]</td><td ID="MedicationAccount_1">[id number]</td><td ID="MedicationNpid_1">[id number]</td><td ID="MedicationAuthorFirstName_1">Colby</td><td ID="MedicationAuthorLastName_1">Jose</td><td ID="MedicationTaxonomyCode_1">[id number]</td><td ID="MedicationTaxonomyDesc_1">Nurse Practitioner</td><td ID="MedicationPhoneNumber_1">[phone]</td> [facility] ([facility]) Ergocalciferol 94363 UNT Oral Capsule Vitamin D2 04/13/2018 12:00 :00 AM EDT mcg by mouth completed <td ID="Me dicationRxNorm_2">[id number]</td><td ID="MedicationMedication_2">Vitamin D2</td><td ID="MedicationRoute_2">by mouth</td><td ID="MedicationRouteConcept_2">R98479</td><td ID="MedicationStartDate_2">04/13/2018</td><td ID="MedicationStopDate_2">05/27/2020</td><td ID="MedicationDosageFrequency_2">once a week</td><td ID="MedicationDuration_2">30</td><td ID="MedicationFormulaStrength_2">1,250 mcg (50,000 unit)</td><td ID="MedicationDosageForm_2">capsule</td><td ID="MedicationDosageFormCode_2"></td><td ID="MedicationDosageDescription_2">as directed</td><td ID="MedicationMedicationId_2">[id number]</td><td ID="MedicationAccount_2">[id number]</td><td ID="MedicationNpid_2">[id number]</td><td ID="MedicationAuthorFirstName_2">Michelle</td><td ID="MedicationAuthorLastName_2">Lina</td><td ID="MedicationTaxonomyCode_2">[id number]</td><td ID="MedicationTaxonomyDesc_2"> Psychiatric/Mental Health</td><td ID="MedicationPhoneNumber_2">[phone]</td> [facility] ([facility]) Ergocalciferol 42336 UNT Oral Capsule Vitamin D2 04/13/2018 12:00 :00 AM EDT mcg by mouth completed <td ID="Me dicationRxNorm_3">0474646</td><td ID="MedicationMedication_3">Vitamin D2</td><td ID="MedicationRoute_3">by mouth</td><td ID="MedicationRouteConcept_3">W55640</td><td ID="MedicationStartDate_3">04/13/2018</td><td ID="MedicationStopDate_3">05/27/2020</td><td ID="MedicationDosageFrequency_3">once a week</td><td ID="MedicationDuration_3">30</td><td ID="MedicationFormulaStrength_3">1,250 mcg (50,000 unit)</td><td ID="MedicationDosageForm_3">capsule</td><td ID="MedicationDosageFormCode_3"></td><td ID="MedicationDosageDescription_3">as directed</td><td ID="MedicationMedicationId_3">74289</td><td ID="MedicationAccount_3">[id number]</td><td ID="MedicationNpid_3">[id number]</td><td ID="MedicationAuthorFirstName_3">Michelle</td><td ID="MedicationAuthorLastName_3">Lina</td><td ID="MedicationTaxonomyCode_3">[id number]</td><td ID="MedicationTaxonomyDesc_3"> Psychiatric/Mental Health</td><td ID="MedicationPhoneNumber_3">[phone]</td> [facility] ([facility]) Insurance Providers Payer name Policy type / Coverage type Policy ID Covered alliance party ID Covered alliance party's relationship to nelson Policy Nelson Plan Information [facility] [id number] SP [id number] [facility] [id number] SP [id number] EMEDNY [id number] SP [id number] MEDICAID [id number] SP [id number] [facility] O [id number] S [id number] MEDICAID M [id number] S [id number] ANSI-Medicaid [id number] ANSI-Not a Secondary Insurance [id number] [facility] Health Maintenance Organization (HMO) [id number] [facility] [id number] ANSI-Medicaid [id number] ANSI-Not a Secondary Insurance [id number] ANSI-Medicaid [id number] ANSI-Not a Secondary Insurance [id number] ANSI-Medicaid [id number] ANSI-Not a Secondary Insurance [id number] ANSI-Medicaid [id number] ANSI-Not a Secondary Insurance [id number] ANSI-Not a Secondary Insurance [id number] ANSI-Medicaid [id number] ANSI-Medicaid [id number] ANSI-Not a Secondary Insurance [id number] ANSI-Not a Secondary Insurance [id number] ANSI-Medicaid [id number] ANSI-Not a Secondary Insurance [id number] ANSI-Medicaid [id number] ANSI-Medicaid [id number] ANSI-Not a Secondary Insurance [id number] ANSI-Not a Secondary Insurance [id number] ANSI-Medicaid [id number] ANSI-Not a Secondary Insurance [id number] ANSI-Medicaid [id number] ANSI-Medicaid [id number] ANSI-Not a Secondary Insurance [id number] ANSI-Medicaid [id number] ANSI-Not a Secondary Insurance [id number] ANSI-Medicaid [id number] ANSI-Not a Secondary Insurance [id number] ANSI-Medicaid [id number] ANSI-Not a Secondary Insurance [id number] ANSI-Not a Secondary Insurance [id number] ANSI-Medicaid [id number] ANSI-Not a Secondary Insurance [id number] ANSI-Medicaid [id number] ANSI-Medicaid [id number] ANSI-Not a Secondary Insurance [id number] [facility] [id number] SP [id number] [facility] MCRHMO [id number] SP [id number] MEDICARE [id number] SP [id number] [facility] CARLOS [id number] SP [id number] [facility] DUAL COMPLET MCRADVANT [id number] S [id number] MEDICARE - [place] MCR [id number] S [id number] SELF PAY SP UNAVAILABLE UNAVAILA BLE [facility]) O [id number] S [id number] MEDICARE C [id number] S [id number] W [employer] EMPLOYEE BENEFITS [id number] SP [id number] [employer] PPO NOTFORTODAYSVISIT SP N OTFORTODAYSVISIT [facility] MEDICAID [id number] SP [id number] T [id number] Problems, Conditions, and Diagnoses Code Display Name Description Problem Type Effective Dates Data Source(s) F20.0 Paranoid schizophrenia Paranoid schizophrenia Conditio n 06/19/2021 12:00:00 AM EST [facility]Procedures Procedure Description Date Indications Data Source(s) THERAPEUTIC PROPHYLACTIC/DX INJECTION SUBQ/IM 06/19/2021 12:00:00 AM EST - 06/19/2021 12:00:00 AM EST [facility] ([facility]) THERAPEUTIC PROPHYLACTIC/DX INJECTION SUBQ/IM 06/19/20 12:00:00 AM EST [facility] ([facility]) OFFICE OUTPATIENT VISIT 15 MINUTES 06/17 12:00:00 AM EST - 06/17/2021 12:00:00 AM EST [facility] ([facility]) OFFICE OUTPATIENT VISIT 15 MINUTES 06/17/2021 12:00:00 AM EST [facility] ([facility]) Psychiatric Diagnostic Evaluation with Medical Services 05/19/2021 12:00:00 AM EDT - 05/19/2021 12:00:00 AM EDT [facility] ([facility]) Psychiatric Diagnostic Evaluation with Medical Services 05/19/2021 12:00:00 AM EDT [facility] ([facility]) Brief Individual Psychotherapy - 30 min 05/01/2021 12:00:00 AM EDT - 05/01/2021 12:00:00 AM EDT [facility] ([facility]) Brief Individual Psychotherapy - 30 min 05/01/2021 12: 00:00 AM EDT [facility] ([facility]) OFFICE OUTPATIENT VISIT 15 MINUTES 04/15 12:00:00 AM EDT - 04/15/2021 12:00:00 AM EDT [facility] ([facility]) OFFICE OUTPATIENT VISIT 15 MINUTES 04/15/2021 12:00:00 AM EDT [facility] ([facility]) Brief Individual Psychotherapy - 30 min 04/10/2021 12:00:00 AM EDT - 04/10/2021 12:00:00 AM EDT [facility] ([facility]) Brief Individual Psychotherapy - 30 min 04/10/2021 12: 00:00 AM EDT [facility] ([facility]) THERAPEUTIC PROPHYLACTIC/DX INJECTION SUBQ/IM 03/21/2021 12:00:00 AM EDT - 03/21/2021 12:00:00 AM EDT [facility] ([facility]) THERAPEUTIC PROPHYLACTIC/DX INJECTION SUBQ/IM 03/21/20 12:00:00 AM EDT [facility] ([facility]) Brief Individual Psychotherapy - 30 min 02/27/2021 12:00:00 AM EDT - 02/27/2021 12:00:00 AM EDT [facility] ([facility]) Brief Individual Psychotherapy - 30 min 02/27/2021 12: 00:00 AM EDT [facility] ([facility]) OFFICE OUTPATIENT VISIT 15 MINUTES 01/23/2021 12:00:00 AM EDT [facility] ([facility], ) OFFICE OUTPATIENT VISIT 15 MINUTES 01/01 12:00:00 AM EDT - 01/01/2021 12:00:00 AM EDT [facility] ([facility]) OFFICE OUTPATIENT VISIT 15 MINUTES 01/01/2021 12:00:00 AM EDT [facility] ([facility]) THERAPEUTIC PROPHYLACTIC/DX INJECTION SUBQ/IM 12/19/2020 12:00:00 AM EDT - 12/19/2020 12:00:00 AM EDT [facility] ([facility]) THERAPEUTIC PROPHYLACTIC/DX INJECTION SUBQ/IM 12/20/19 12:00:00 AM EDT [facility] ([facility]) Brief Individual Psychotherapy - 30 min 11/13/2020 12:00:00 AM EDT - 11/13/2020 12:00:00 AM EDT [facility] ([facility]) Brief Individual Psychotherapy - 30 min 11/13/2020 12: 00:00 AM EDT [facility] ([facility]) Brief Individual Psychotherapy - 30 min 09/24/2020 12:00:00 AM EST - 09/24/2020 12:00:00 AM EST [facility] ([facility]) Brief Individual Psychotherapy - 30 min 09/24/2020 12: 00:00 AM EST [facility] ([facility]) Brief Individual Psychotherapy - 30 min 08/27/2020 12:00:00 AM EST - 08/27/2020 12:00:00 AM EST [facility] ([facility]) Brief Individual Psychotherapy - 30 min 08/27/2020 12: 00:00 AM EST [facility] ([facility]) MHC Telemed E/M Lvl 3--Est pt 08/15/2020 12:00:00 AM EST - 08/15/2020 12:00:00 AM EST [facility] ([facility]) MHC Telemed E/M Lvl 3--Est pt 08/15/2020 12:00:[address] [facility] ([facility]) Brief Individual Psychotherapy - 30 min 07/30/2020 12:00:00 AM EST - 07/30/2020 12:00:00 AM EST [facility] ([facility]) Brief Individual Psychotherapy - 30 min 07/30/2020 12: 00:00 AM EST [facility] ([facility]) OFFICE OUTPATIENT VISIT 15 MINUTES 07/04 12:00:00 AM EST - 07/04/2020 12:00:00 AM EST [facility] ([facility]) Psychotherapy ADD ON - 30 Minutes 07/04/2020 12:00:00 AM EST [facility] ([facility]) OFFICE OUTPATIENT VISIT 15 MINUTES 07/04/2020 12:00:00 AM EST [facility] ([facility]) Brief Individual Psychotherapy - 30 min 06/21/2020 12:00:00 AM EST - 06/21/2020 12:00:00 AM EST [facility] ([facility]) Brief Individual Psychotherapy - 30 min 06/21/2020 12: 00:00 AM EST [facility] ([facility]) THERAPEUTIC PROPHYLACTIC/DX INJECTION SUBQ/IM 06/20/2020 12:00:00 AM EST - 06/20/2020 12:00:00 AM EST [facility] ([facility]) THERAPEUTIC PROPHYLACTIC/DX INJECTION SUBQ/IM 06/20/20 12:00:00 AM EST [facility] ([facility]) Comprehensive medication services, per 15 minutes 06/18/2020 12:00:00 AM EST - 06/18/2020 12:00:00 AM EST [facility] ([facility]) Comprehensive medication services, per 15 minutes 06/18/2020 12:00:00 AM EST [facility] ([facility]) OFFICE OUTPATIENT VISIT 15 MINUTES 05/30 12:00:00 AM EST - 05/30/2020 12:00:00 AM EST [facility] ([facility]) Psychotherapy ADD ON - 30 Minutes 05/30/2020 12:00:00 AM EST [facility] ([facility]) OFFICE OUTPATIENT VISIT 15 MINUTES 05/30/2020 12:00:00 AM EST [facility] ([facility]) Brief Individual Psychotherapy - 30 min 05/02/2020 12:00:00 AM EDT - 05/02/2020 12:00:00 AM EDT [facility] ([facility]) Brief Individual Psychotherapy - 30 min 05/02/2020 12: 00:00 AM EDT [facility] ([facility]) MHC Telemed E/M Lvl 3--Est pt 04/30/2020 12:00:00 AM EDT - 04/30/2020 12:00:00 AM EDT [facility] ([facility]) Telemed A/O 30" 04/30/2020 12:00:00 AM EDT [facility] ([facility]) MHC Telemed E/M Lvl 3--Est pt 04/30/2020 12:00:00 AM E DT [facility] ([facility]) Results ID Date Data Source VITAMIN D 25-HYDROXY 03/20/2021 12:00:00 AM EDT eCW1 ([facility]) Name Value Range Interpretation Code Description Data Ifeoma rce(s) Supporting Document(s) 32.2 30.0-100.0 TOTAL 25(OH) VITAMIN D eC W1 ([facility]) ID Date Data Source TSH 03/20/2021 12:00:00 AM EDT eCW1 ([facility]) Name Value Range Interpretation Code Description Data Ifeoma rce(s) Supporting Document(s) 0.829 0.358-3.740 THYROID STIMULATING HORM ONE eCW1 ([facility]) ID Date Data Source LIPID PANEL (CARDIAC RISK) 03/20/2021 12:00:00 AM EDT eCW1 ( [facility]) Name Value Range Interpretation Code Description Data Ifeoma rce(s) Supporting Document(s) Triglyceride [Mass/volume] in Serum or Plasma by calculation 99 <150 TRIGLYCERIDES LEVEL eCW1 ([facility]) Cholesterol [Moles/volume] in Serum or Plasma 134 <200 CHOLESTEROL LEVEL eCW1 ([facility]) Cholesterol in HDL [Moles/volume] in Serum or Plasma 48 >40 HDL CHOLESTEROL eCW1 ([facility]) 86 NON-HDL-C eCW1 ([facility]) Cholesterol in LDL [Mass/volume] in Serum or Plasma by calculation 66 <100 LDL CHOLESTEROL eCW1 ([facility]) 2.791 <5 CHOLESTEROL RISK RATIO eCW1 ([facility]) ID Date Data Source [id number] 03/20/2021 12:00:00 AM EDT eCW1 ([facility]) Name Value Range Interpretation Code Description Data Ifeoma rce(s) Supporting Document(s) Hemoglobin A1c/Hemoglobin.total in Blood 5.8 HEMOGLOBIN A1c eCW1 ([facility]) ID Date Data Source FREE T4 03/20/2021 12:00:00 AM EDT eCW1 ([facility]) Name Value Range Interpretation Code Description Data Ifeoma rce(s) Supporting Document(s) 0.99 0.76-1.46 FREE T4 eCW1 ([facility]) ID Date Data Source Comprehensive Metabolic Profile (CMP) 03/20/2021 12:00:00 AM EDT eCW1 ([facility]) Name Value Range Interpretation Code Description Data Ifeoma rce(s) Supporting Document(s) 98 70-100 GLUCOSE, FASTING eCW1 ([facility]) 10 7-18 BLOOD UREA NITROGEN eCW1 ([facility]) 0.60 0.55-1.30 CREATININE FOR GFR eCW1 ([facility]) > 60.0 >51 GLOMERULAR FILTRATION RATE eCW 1 ([facility]) 143 136-145 SODIUM LEVEL eCW1 ([facility]) 4.2 3.5-5.1 POTASSIUM SERUM eCW1 ([facility]) 110 98-107 CHLORIDE LEVEL eCW1 ([facility]) 30 21-32 CARBON DIOXIDE LEVEL eCW1 ([facility]) 9.4 8.5-10.1 CALCIUM LEVEL eCW1 ([facility]) 11 7-37 AST/SGOT eCW1 ([facility]) 19 12-78 ALT/SGPT eCW1 ([facility]) 103 45-117 ALKALINE PHOSPHATASE eCW1 ([facility]) 0.5 0.2-1.0 BILIRUBIN,TOTAL eCW1 ([facility]) 7.0 6.4-8.2 TOTAL PROTEIN eCW1 ([facility]) 3.8 3.2-5.2 ALBUMIN eCW1 ([facility]) 1.2 1.2-2.2 ALBUMIN/GLOBULIN RATIO eCW1 ([facility]) ID Date Data Source [id number] 09/12/2020 12:00:00 AM EST eCW1 ([facility]) Name Value Range Interpretation Code Description Data Ifeoma rce(s) Supporting Document(s) Microalbumin/Creatinine [Mass Ratio] in Urine 135.0 CREATININE, URINE eCW1 ([facility]) Microalbumin/Creatinine [Ratio] in Urine 74.8 0.0-30.0 JEM/CREAT RATIO eCW1 ([facility]) Albumin/Creatinine [Mass Ratio] in Urine 101.0 MALB URINE SIEMENS eCW1 ([facility]) ID Date Data Source FREE T4 & TSH PANEL 09/12/2020 12:00:00 AM EST eCW1 ([facility]) Name Value Range Interpretation Code Description Data Ifeoma rce(s) Supporting Document(s) 0.766 0.358-3.740 THYROID STIMULATING HORM ONE eCW1 ([facility]) 0.96 0.76-1.46 FREE T4 eCW1 ([facility]) ID Date Data Source PTH INTACT 09/12/2020 12:00:00 AM EST eCW1 ([facility]) Name Value Range Interpretation Code Description Data Ifeoma rce(s) Supporting Document(s) 49.4 18.5-88.0 PTH INTACT eCW1 ([facility]) ID Date Data Source CBC with Differential 09/12/2020 12:00:00 AM EST eCW1 ([facility]) Name Value Range Interpretation Code Description Data Ifeoma rce(s) Supporting Document(s) 5.1 4.0-10.0 WHITE BLOOD COUNT eCW1 ([facility]) 12.2 12.0-15.5 HEMOGLOBIN eCW1 ([facility]) 4.14 4.00-5.40 RED BLOOD COUNT eCW1 ([facility]) 37.6 36.0-47.0 HEMATOCRIT eCW1 ([facility]) 90.8 80.0-96.0 MEAN CORPUSCULAR VOLUME e CW1 ([facility]) 29.5 27.0-33.0 MEAN CORPUSCULAR HEMOGLOB IN eCW1 ([facility]) 13.3 11.5-14.5 RED CELL DISTRIBUTION WID TH eCW1 ([facility]) 227 150-450 PLATELET COUNT, AUTOMATED eCW1 ([facility]) 32.4 32.0-36.5 MEAN CORPUSCULAR HGB CONC eCW1 ([facility]) 2.5 0.0-3.0 EOS % eCW1 ([facility]) 27.4 24.0-44.0 LYMPH % eCW1 ([facility]) 5.5 2.0-8.0 MONO % eCW1 ([facility]) 64.0 36.0-66.0 NEUTROPHILS % eCW1 ([facility]) 0.3 0.0-0.8 MONO # eCW1 ([facility]) 0.4 0.0-1.0 BASO % eCW1 ([facility]) 1.4 1.5-5.0 LYMPH # eCW1 ([facility]) 3.3 1.5-8.5 NEUTROPHILS # eCW1 ([facility]) 0.0 0.0-0.2 BASO # eCW1 ([facility]) 0.1 0.0-0.5 EOS # eCW1 ([facility]) ID Date Data Source [id number] 06/11/2020 03:08:00 PM EST [facility] Name Value Range Interpretation Code Description Data Ifeoma rce(s) Supporting Document(s) SARS coronavirus 2 RNA [facility] This lab was ordered by [facility] and reported by [facility]. Procedure Social History Code Duration Value Status Description Data Source(s ) Smoking 06/19/2021 12:00:00 AM EST Unknown if ever smoked comp leted Unknown if ever smoked [facility] ([facility]) Smoking 06/17/2021 12:00:00 AM EST Unknown if ever smoked comp leted Unknown if ever smoked [facility] ([facility]) Smoking 05/19/2021 12:00:00 AM EDT Unknown if ever smoked comp leted Unknown if ever smoked [facility] ([facility]) Smoking 05/05/2021 12:00:00 AM EDT Former Smoker completed Former Smoker [email or web address] ([facility]) Smoking 05/05/2021 12:00:00 AM EDT Former Smoker completed Former Smoker [email or web address] ([facility]) Smoking 05/05/2021 12:00:00 AM EDT Former Smoker completed Former Smoker [email or web address] ([facility]) Smoking 05/05/2021 12:00:00 AM EDT Former Smoker completed Former Smoker [email or web address] ([facility]) Smoking 05/05/2021 12:00:00 AM EDT Former Smoker completed Former Smoker [email or web address] ([facility]) Smoking 05/01/2021 12:00:00 AM EDT Unknown if ever smoked comp leted Unknown if ever smoked [facility] ([facility]) Smoking 04/15/2021 12:00:00 AM EDT Unknown if ever smoked comp leted Unknown if ever smoked [facility] ([facility]) Smoking 04/10/2021 12:00:00 AM EDT Unknown if ever smoked comp leted Unknown if ever smoked [facility] ([facility]) Smoking 03/21/2021 12:00:00 AM EDT Unknown if ever smoked comp leted Unknown if ever smoked [facility] ([facility]) Smoking 03/20/2021 12:00:00 AM EDT Former Smoker completed Former Smoker [email or web address] ([facility]) Smoking 03/20/2021 12:00:00 AM EDT Former Smoker completed Former Smoker [email or web address] ([facility]) Smoking 02/27/2021 12:00:00 AM EDT Unknown if ever smoked comp leted Unknown if ever smoked [facility] ([facility]) Smoking 01/01/2021 12:00:00 AM EDT Unknown if ever smoked comp leted Unknown if ever smoked [facility] ([facility]) Smoking 12/19/2020 12:00:00 AM EDT Unknown if ever smoked comp leted Unknown if ever smoked [facility] ([facility]) Smoking 11/13/2020 12:00:00 AM EDT Unknown if ever smoked comp leted Unknown if ever smoked [facility] ([facility]) Smoking 09/24/2020 12:00:00 AM EST Unknown if ever smoked comp leted Unknown if ever smoked [facility] ([facility]) Smoking 09/12/2020 12:00:00 AM EST Former Smoker completed Former Smoker [email or web address] [facility] Care) Smoking 09/12/2020 12:00:00 AM EST Former Smoker completed Former Smoker eCW1 ([facility]) Smoking 09/12/2020 12:00:00 AM EST Former Smoker completed Former Smoker eCW1 ([facility]) Smoking 09/12/2020 12:00:00 AM EST Former Smoker completed Former Smoker eCW1 ([facility]) Smoking 09/12/2020 12:00:00 AM EST Former Smoker completed Former Smoker eCW1 ([facility]) Smoking 09/12/2020 12:00:00 AM EST Former Smoker completed Former Smoker eCW1 ([facility]) Smoking 08/27/2020 12:00:00 AM EST Unknown if ever smoked comp leted Unknown if ever smoked [facility] ([facility]) Smoking 08/15/2020 12:00:00 AM EST Unknown if ever smoked comp leted Unknown if ever smoked [facility] ([facility]) Smoking 08/13/2020 12:00:00 AM EST Former Smoker completed Former Smoker eCW1 ([facility]) Smoking 08/13/2020 12:00:00 AM EST Former Smoker completed Former Smoker eCW1 ([facility]) Smoking 08/13/2020 12:00:00 AM EST Former Smoker completed Former Smoker eCW1 ([facility]) Smoking 07/30/2020 12:00:00 AM EST Unknown if ever smoked comp leted Unknown if ever smoked [facility] ([facility]) Smoking 07/04/2020 12:00:00 AM EST Unknown if ever smoked comp leted Unknown if ever smoked [facility] ([facility]) Smoking 06/21/2020 12:00:00 AM EST Unknown if ever smoked comp leted Unknown if ever smoked [facility] ([facility]) Smoking 06/20/2020 12:00:00 AM EST Unknown if ever smoked comp leted Unknown if ever smoked [facility] ([facility]) Smoking 06/18/2020 12:00:00 AM EST Unknown if ever smoked comp leted Unknown if ever smoked [facility] ([facility]) Smoking 06/11/2020 12:00:00 AM EST Former Smoker completed Former Smoker eCW1 ([facility]) Smoking 06/11/2020 12:00:00 AM EST Former Smoker completed Former Smoker eCW1 ([facility]) Smoking 06/11/2020 12:00:00 AM EST Former Smoker completed Former Smoker eCW1 ([facility]) Smoking 06/11/2020 12:00:00 AM EST Former Smoker completed Former Smoker eCW1 ([facility]) Smoking 05/30/2020 12:00:00 AM EST Unknown if ever smoked comp leted Unknown if ever smoked [facility] ([facility]) Smoking 05/08/2020 12:00:00 AM EDT Former Smoker completed Former Smoker eCW1 ([facility]) Smoking 05/02/2020 12:00:00 AM EDT Unknown if ever smoked comp leted Unknown if ever smoked [facility] ([facility]) Smoking 04/30/2020 12:00:00 AM EDT Unknown if ever smoked comp leted Unknown if ever smoked [facility] ([facility]) Vital Signs ID Date Data Source UNK Name Value Range Interpretation Code Description Data Source(s) Body temperature 96.6 [degF] 96.6 [degF] eCW1 ( [facility]) Systolic blood pressure 100 mm[Hg] 100 mm[Hg] e CW1 ([facility]) Diastolic blood pressure 68 mm[Hg] 68 mm[Hg] eCW1 ([facility]) Body weight 191 [lb_av] 191 [lb_av] eCW1 (Formerly [facility]) Body height 66 [in_i] 66 [in_i] eCW1 ([facility]) Body mass index (BMI) [Ratio] 30.82 kg/m2 30.82 kg/m2 eCW1 ([facility]) Heart rate 72 /min 72 /min eCW1 (Formerly [facility]) Respiratory rate 18 /min 18 /min eCW1 ([facility]) Body surface area Derived from formula 1.94 m2 1.94 m2 ITALIA ([facility], ) [place] body weight 125 [lb_av] 125 [lb_av] MEDEN T ([facility], ) Body weight 86.184 kg 86.184 kg ITALIA ([facility], ) Diastolic blood pressure 70 mm[Hg] 70 mm[Hg] ITALIA ([facility]) Systolic blood pressure 124 mm[Hg] 124 mm[Hg] M EDENT ([facility]) Body height 65 [in_i] 65 [in_i] [facility] ([facility]) 5'5" Body weight 190.00 [lb_av] 190.00 [lb_av] MEDEN T ([facility]) Body mass index (BMI) [Ratio] 31.6 kg/m2 31.6 k g/m2 [facility] ([facility]) Body height 65 [in_i] 65 [in_i] [facility] ([facility]) 5'5" Body weight 190.00 [lb_av] 190.00 [lb_av] MEDEN T ([facility]) Body mass index (BMI) [Ratio] 31.6 kg/m2 31.6 k g/m2 [facility] ([facility]) [place] body weight 125 [lb_av] 125 [lb_av] MEDEN T ([facility]) Body weight 86.184 kg 86.184 kg [facility] ([facility]) Body surface area Derived from formula 1.94 m2 1.94 m2 [facility] ([facility]) Body mass index (BMI) [Ratio] 30.76 kg/m2 30.76 kg/m2 eCW1 ([facility]) Heart rate 89 /min 89 /min eCW1 ([facility]ly [facility]) Body weight 190.6 [lb_av] 190.6 [lb_av] eCW1 ([facility]) Body height 66 [in_i] 66 [in_i] eCW1 ([facility]) Respiratory rate 18 /min 18 /min eCW1 ([facility]) Body temperature 98.1 [degF] 98.1 [degF] eCW1 ( [facility]) Diastolic blood pressure 74 mm[Hg] 74 mm[Hg] eCW1 ([facility]) Systolic blood pressure 112 mm[Hg] 112 mm[Hg] e CW1 ([facility]) Diastolic blood pressure 0 mm[Hg] Normal (applies to non-numeric results) 0 mm[Hg] [facility] ([facility]) Body height 0.00 in Normal (applies to non-numeric resu lts) 0.00 in [facility] ([facility]) Body weight Measured 0.00 lbs Normal (applies to n on-numeric results) 0.00 lbs [facility] ([facility]) Body mass index (BMI) [Ratio] 0.00 kg/m2 No rmal (applies to non-numeric results) 0.00 kg/m2 [facility] ([facility]) Systolic blood pressure 0 mm[Hg] Normal (applies t o non-numeric results) 0 mm[Hg] [facility] ([facility]) Body weight 194 [lb_av] 194 [lb_av] eCW1 (Formerly [facility]) Body height 66 [in_i] 66 [in_i] eCW1 ([facility]) Body mass index (BMI) [Ratio] 31.31 kg/m2 31.31 kg/m2 W1 ([facility]) Respiratory rate 18 /min 18 /min W1 ([facility]) Heart rate 106 /min 106 /min W1 ([facility]ly [facility]) Body temperature 97.9 [degF] 97.9 [degF] eCW1 ( [facility]) Systolic blood pressure 122 mm[Hg] 122 mm[Hg] e CW1 ([facility]) Diastolic blood pressure 74 mm[Hg] 74 mm[Hg] eCW1 ([facility]) Body mass index (BMI) [Ratio] 0.00 kg/m2 No rmal (applies to non-numeric results) 0.00 kg/m2 [facility] ([facility]) Systolic blood pressure 0 mm[Hg] Normal (applies t o non-numeric results) 0 mm[Hg] [facility] ([facility]) Body height 0.00 in Normal (applies to non-numeric resu lts) 0.00 in [facility] ([facility]) Body weight Measured 0.00 lbs Normal (applies to n on-numeric results) 0.00 lbs [facility] ([facility]) Diastolic blood pressure 0 mm[Hg] Normal (applies to non-numeric results) 0 mm[Hg] [facility] ([facility]) Body height 0.00 in Normal (applies to non-numeric resu lts) 0.00 in [facility] ([facility]) Body weight Measured 0.00 lbs Normal (applies to n on-numeric results) 0.00 lbs [facility] ([facility]) Body mass index (BMI) [Ratio] 0.00 kg/m2 No rmal (applies to non-numeric results) 0.00 kg/m2 [facility] ([facility]) Systolic blood pressure 0 mm[Hg] Normal (applies t o non-numeric results) 0 mm[Hg] [facility] ([facility]) Diastolic blood pressure 0 mm[Hg] Normal (applies to non-numeric results) 0 mm[Hg] [facility] ([facility]) Body weight 192 [lb_av] 192 [lb_av] eCW1 ([facility]ly [facility]) Body height 66 [in_i] 66 [in_i] eCW1 ([facility]) Body mass index (BMI) [Ratio] 30.99 kg/m2 30.99 kg/m2 W1 ([facility]) Heart rate 88 /min 88 /min W1 ([facility]ly [facility]) Respiratory rate 20 /min 20 /min W1 ([facility]) Body temperature 97 [degF] 97 [degF] eCW1 ([facility]) Systolic blood pressure 130 mm[Hg] 130 mm[Hg] e CW1 ([facility]) Diastolic blood pressure 80 mm[Hg] 80 mm[Hg] eCW1 ([facility]) Body weight Measured 0.00 lbs Normal (applies to n on-numeric results) 0.00 lbs [facility] ([facility]) Body height 0.00 in Normal (applies to non-numeric resu lts) 0.00 in [facility] ([facility]) Systolic blood pressure 0 mm[Hg] Normal (applies t o non-numeric results) 0 mm[Hg] [facility] ([facility]) Diastolic blood pressure 0 mm[Hg] Normal (applies to non-numeric results) 0 mm[Hg] [facility] ([facility]) Body mass index (BMI) [Ratio] 0.00 kg/m2 No rmal (applies to non-numeric results) 0.00 kg/m2 [facility] ([facility]) Patient Treatment Plan of Care Planned Activity Planned Date Details Description Data Source (s) Amoxicillin 875 MG / Clavulanate 125 MG Oral Tablet 08/13/19 12:00:00 AM EST eCW1 ([facility]) Amoxicillin 875 MG / Clavulanate 125 MG Oral Tablet 08/13/19 12:00:00 AM EST eCW1 ([facility]) Amoxicillin 875 MG / Clavulanate 125 MG Oral Tablet 08/13/19 12:00:00 AM EST eCW1 ([facility]) Famotidine 40 MG Oral Tablet [Pepcid] 05/08/2020 12:00:00 AM EDT eCW1 ([facility]) Famotidine 40 MG Oral Tablet [Pepcid] 05/08/2020 12:00:00 AM EDT eCW1 ([facility]) Famotidine 40 MG Oral Tablet [Pepcid] 05/08/2020 12:00:00 AM EDT eCW1 ([facility]) Famotidine 40 MG Oral Tablet [Pepcid] 05/08/2020 12:00:00 AM EDT eCW1 ([facility]) Famotidine 40 MG Oral Tablet [Pepcid] 05/08/2020 12:00:00 AM EDT eCW1 ([facility])
[2021-06-26] MEDS ORDERED: MOME50SP2 (12:42)
[2021-06-26] MEDS ORDERED: LAMO200T3 (12:42)
[2021-06-26] MEDS ORDERED: METF500T13 (12:42)
[2021-06-26] MEDS ORDERED: GABA-282 (12:42)
[2021-06-26] MEDS ORDERED: FAMO40TA3 (12:42)
[2021-06-26] MEDS ORDERED: LAC-LOT2 TOP (13:37)
[2021-06-26] MEDS ORDERED: NEOSPORIN OINT 0.9 GM PKT TOP ONE (13:40)
--- OUTSIDE RECORDS SUMMARY | 2021-06-26 14:04 | CCD ---
Author Author [facility] Organization [facility] Address Unknown Phone Unavailable Care Team Providers Care Home Mortgage Disclosure Act Specialist Name Role Phone John Green Unavailable Dary Pope Unavailable Mary Mobley Unavailable Lela Byrne Unavailable JOSE, H COLBY LACQUER DIPPING MACHINE OPERATOR Unavailable Unavailable JOSE, H COLBY LACQUER DIPPING MACHINE OPERATOR Unavailable Unavailable JOSE, H COLBY LACQUER DIPPING MACHINE OPERATOR Unavailable Unavailable JOSE, H COLBY LACQUER DIPPING MACHINE OPERATOR Unavailable Unavailable JOSE, H COLBY LACQUER DIPPING MACHINE OPERATOR Unavailable Unavailable JOES, H COLBY LACQUER DIPPING MACHINE OPERATOR Unavailable Unavailable JOSE, H COLBY LACQUER DIPPING MACHINE OPERATOR Unavailable Unavailable JOSE, H COLBY LACQUER DIPPING MACHINE OPERATOR Unavailable Unavailable JOSE, H COLBY LACQUER DIPPING MACHINE OPERATOR Unavailable Unavailable Maurisio DOHERTY MD Unavailable Unavailable [...] Unavailable Maurisio DOHERTY MD Unavailable Unavailable Maurisio DOHERYT MD Unavailable Unavailable Maurisio DOHERTY MD Unavailable Unavailable Maurisio DOHERTY MD Unavailable Unavailable Maurisio DOHERTY MD Unavailable Unavailable Maurisio DOHERTY MD Unavailable Unavailable Maurisio DOHERTY MD Unavailable Unavailable Maurisio DOHERTY MD Unavailable Unavailable Maurisio DOHERTY MD Unavailable Unavailable Maurisio DOHERTY MD Unavailable Unavailable Maurisio DOHERTY MD Unavailable Unavailable Maurisio DOHERTY MD Unavailable Unavailable Maurisio DOHERTY MD Unavailable Unavailable Maurisio DOHERTY MD Unavailable Unavailable aMurisio DOHERTY MD Unavailable Unavailable Maurisio DOHERTY MD Unavailable Unavailable Maurisio DOHERTY MD Unavailable Unavailable Maurisio DOHERTY MD Unavailable Unavailable Maurisio Mills [facility]-LACQUER DIPPING MACHINE OPERATOR Unavailable Unavailable Maurisio Mills PMH-LACQUER DIPPING MACHINE OPERATOR Unavailable Unavailable Maurisio Mills [facility] DIPPING MACHINE OPERATOR Unavailable Unavailable Maurisio Mills [facility]-LAC[facility] DIPPING MACHINE OPERATOR Unavailable Unavailable Maurisio Mills PMH-LAC[facility]ER DIPPING MACHINE OPERATOR Unavailable Unavailable Maurisio Mills PMH-LACQUER DIPPING MACHINE OPERATOR Unavailable Unavailable Maurisio Mills PMH-LACQUER DIPPING MACHINE OPERATOR Unavailable Unavailable Maurisio Mills PMH-LACQUER DIPPING MACHINE OPERATOR Unavailable Unavailable Maurisio Mills PMH-LACQUER DIPPING MACHINE OPERATOR Unavailable Unavailable Maurisio Mills PMH-LACQUER DIPPING MACHINE OPERATOR Unavailable Unavailable Millie Kim Unavailable Peg Griggs [...] is protected by Article 27-F of the [facility] Public Health law. If you continue you may have access to information: Regarding HIV / AIDS; Provided by facilities licensed or operated by the [facility] Office of Mental Health; or Provided by the [facility] Office for People With Developmental Disabilities. If such information is present, then the following [facility] mandated warning applies: This information has [...] law may result in a fine or care home sentence or both. A general authorization for the release of medical or other information is NOT sufficient authorization for further disc losure. Allergies and Adverse Reactions Type Description Substance Reaction Status Data Source(s ) Propensity to adverse reactions to substance divalproex Divalproex Sodium 500 MG Delayed Release Oral Tablet Active [facility] Propensity to adverse reactions to substance divalproex Divalproex Sodium 500 MG Delayed Release Oral Tablet Active [facility] ([facility]) Family History Family Member Name Family Member Gender Family Member Status Date o f Status Description Data Source(s) Unknown Unknown Problem MEDENT ([facility], ) Encounters Encounter Providers Location Date Indications Data Source(s ) Injectable Psychotropic Medication Administration (Inj ection Only) Attender: Peg Griggs [facility] 06/19/2021 09:00:00 AM EST - 06/19/2021 09:00:00 AM EST [facility] ([facility]) Attender: Peg Grgigs 06/19/2021 12:00:00 AM EST [facility] ([facility]) Outpatient Attender: COLBY CRUZ NP [facility] Shane paz 06/17/2021 10:00:00 AM EST - 06/17/2021 10:00:00 AM EST [facility] ([facility]) Attender: COLBY CRUZ NP 06/17/2021 12:00:00 AM EST [facility] ([facility]) [place] [address] [facility] [place] [address] 06/05/2021 12:00:00 AM EST eCW1 ([facility]) [place] [address] [facility] [place] [address] 06/05/2021 12:00:00 AM EST eCW1 ([facility]) [place] [address] [facility] [place] [address] 05/28/2021 12:00:00 AM EST eCW1 ([facility]) Psychiatric Diagnostic Evaluation with Medical Service s Attender: COLYB CRUZ NP [facility] 05/19/2021 10:00:00 AM EDT - 05/19/2021 10:00:00 AM EDT [facility] ([facility]) Attender: COLBY CRUZ NP 05/19/2021 12:00:00 AM EDT [facility] ([facility]) [place] [address] [facility] [place] [address] 05/07/2021 12:00:00 AM EDT eCW1 ([facility]) Unknown [address] [facility] [address] [address] 05/06/2021 12:00:00 AM EDT eCW1 ([facility]) Brief Individual Psychotherapy - 30 min Attender: Dary rock [facility] 05/01/2021 10:00:00 AM EDT - 05/01/2021 10:00:00 AM EDT [facility] ([facility]) Attender: Dary Pope 05/01/2021 12:00:00 AM E DT [facility] ([facility]) Unknown [address] [facility] [place] [address] 04/30/2021 12:00:00 AM EDT eCW1 ([facility]) [facility] 11:00:00 AM EDT - 04/15/2021 11:00:00 AM EDT [facility] ([facility]) Attender: COLBY CRUZ NP 04/15/2021 12:00:00 AM EDT [facility] ([facility]) Brief Individual Psychotherapy - 30 min Attender: Dary rock [facility] 04/10/2021 11:00:00 AM EDT - 04/10/2021 11:00:00 AM EDT [facility] ([facility]) Attender: Dary Pope 04/10/2021 12:00:00 AM E DT [facility] ([facility]) Injectable Psychotropic Medication Administration (Inj ection Only) Attender: Peg Griggs [facility] 03/21/2021 09:00:00 AM EDT - 03/21/2021 09:00:00 AM EDT [facility] ([facility]) Attender: Peg Griggs 03/21/2021 12:00:00 AM EDT [facility] ([facility]) Outpatient [address] [facility] [place] [address] 03/20/2021 12:00:00 AM EDT eCW1 ([facility]) Brief Individual Psychotherapy - 30 min Attender: Dary rock [facility] 02/27/2021 10:00:00 AM EDT - 02/27/2021 10:00:00 AM EDT [facility] ([facility]) Attender: Dary Pope 02/27/2021 12:00:00 AM E DT [facility] ([facility]) Unknown [address] [facility] [place] [address] 02/12/2021 12:00:00 AM EDT eCW1 ([facility]) Unknown [address] [facility] [place] [address] 02/06/2021 12:00:00 AM EDT eCW1 ([facility]) Outpatient Attender: DIANA Tang/Shahriar/Shaquille hart/Craig 01/23/2021 11:40:00 AM EDT [facility] ([facility]) Unknown [address] [facility] [place] [address] 01/09/2021 12:00:00 AM EDT eCW1 ([facility]) Outpatient Attender: Michelle Mills [facility] DIPPING MACHINE OPERATOR [facility] 01/01/2021 09:30:00 AM EDT - 01/01/2021 09:30:00 AM EDT [facility] ([facility]) Attender: Michelle Mills [facility] DIPPING MACHINE OPERATOR 01/01/2021 12: 00:00 AM EDT [facility] ([facility]) Injectable Psychotropic Medication Administration (Inj ection Only) Attender: eLla Byrne [facility] 12/19/2020 09:00:00 AM EDT - 12/19/2020 09:00:00 AM EDT [facility] ([facility]) Attender: Lela Byrne 12/19/2020 12:00:00 AM EDT [facility] ([facility]) Brief Individual Psychotherapy - 30 min Attender: John thibodeaux [facility] 11/13/2020 01:00:00 AM EDT - 11/13/2020 01:00:00 AM EDT [facility] ([facility]) Attender: John Stonearge 11/13/2020 12:00:00 AM EDT [facility] ([facility]) Unknown [address] [facility] [place] [address] 09/30/2020 12:00:00 AM EDT eCW1 ([facility]) Brief Individual Psychotherapy - 30 min Attender: John thibodeaux [facility] 09/24/2020 01:00:00 AM EST - 09/24/2020 01:00:00 AM EST [facility] ([facility]) Attender: John LaBarge 09/24/2020 12:00:00 AM EST [facility] ([facility]) Unknown [address] [facility] [place] [address] 09/17/2020 12:00:00 AM EST eCW1 ([facility]) Outpatient [address] [facility] [place] [address] 09/12/2020 12:00:00 AM EST eCW1 ([facility]) Unknown [address] [facility] [place] [address] 08/28/2020 12:00:00 AM EST eCW1 ([facility]) Brief Individual Psychotherapy - 30 min Attender: John thibodeaux [facility] 08/27/2020 01:00:00 AM EST - 08/27/2020 01:00:00 AM EST [facility] ([facility]) Attender: John LaBarge 08/27/2020 12:00:00 AM EST [facility] ([facility]) Outpatient [facility]: [facility] 08/15/2020 09:30:00 AM EST - 08/15/2020 09:30:00 AM EST [facility] ([facility]) Attender: Michelle ZAMORA 08/15/2020 12: 00:00 AM EST [facility] ([facility]) Outpatient [address] [facility] [place] [address] 08/13/2020 12:00:00 AM EST eCW1 ([facility]) Unknown [address] [facility] [place] [address] 08/13/2020 12:00:00 AM EST eCW1 ([facility]) Unknown [address] [facility] [place] [address] 08/12/2020 12:00:00 AM EST eCW1 ([facility]) Brief Individual Psychotherapy - 30 min [facility] 01:00:00 AM EST - 07/30/2020 01:00:00 AM EST [facility] ([facility]) Attender: John Green 07/30/2020 12:00:00 AM EST [facility] ([facility]) Outpatient Attender: Michelle Mills [facility] DIPPING MACHINE OPERATOR [facility] 07/04/2020 09:00:00 AM EST - 07/04/2020 09:00:00 AM EST [facility] ([facility]) Attender: Michelle Mills [facility] DIPPING MACHINE OPERATOR 07/04/2020 12: 00:00 AM EST [facility] ([facility]) Brief Individual Psychotherapy - 30 min Attender: Millie smith [facility] 06/21/2020 01:30:00 AM EST - 06/21/2020 01:30:00 AM EST [facility] ([facility]) Attender: Millie Kim 06/21/2020 12:00:[address] [facility] ([facility]) Injectable Psychotropic Medication Administration (Inj ection Only) Attender: Peg Griggs [facility] 06/20/2020 10:00:00 AM EST - 06/20/2020 10:00:00 AM EST [facility] ([facility]) Unknown [address] [facility] [place] [address] 06/20/2020 12:00:00 AM EST eCW1 ([facility]) Unknown [address] [facility] [place] [address] 06/20/2020 12:00:00 AM EST eCW1 ([facility]) Attender: Peg Griggs 06/20/2020 12:00:00 AM EST [facility] ([facility]) Injectable Medication Administration w/ Monitoring & E ducation Attender: Mary Mobley [facility] 06/18/2020 02:00:00 AM EST - 06/18/2020 02:00:00 AM EST [facility] ([facility]) Unknown [address] [facility] [place] [address] 06/18/2020 12:00:00 AM EST eCW1 ([facility]) Attender: Mary Mobley 06/18/2020 12:00:00 AM EST [facility] ([facility]) Outpatient Attender: Michelle GARNERALVAREZ [place] [facility] 05/30/2020 08:30:00 AM EST - 05/30/2020 08:30:00 AM EST [facility] ([facility]) Attender: Michelle ZAMORA 05/30/2020 12: 00:00 AM EST [facility] ([facility]) Outpatient [address] [facility] [address] 05/08/2020 12:00:00 AM EDT eCW1 ([facility]) Brief Individual Psychotherapy - 30 min Attender: Millie msith [facility] 05/02/2020 10:30:00 AM EDT - 05/02/2020 10:30:00 AM EDT [facility] ([facility]) Attender: Millie Kim 05/02/2020 12:00:00 AM E DT [facility] ([facility]) Outpatient Attender: Michelle GARNERALVAREZ [place] [facility] 04/30/2020 02:00:00 AM EDT - 04/30/2020 02:00:00 AM EDT [facility] ([facility]) Attender: Michelle ZAMORA 04/30/2020 12: 00:00 AM EDT [facility] ([facility]) Functional Status Immunizations Vaccine Date Status Description Data Source(s) COVID-19 VACCINE Alex 12/28/2020 12:00:00 AM EDT completed [facility] Vaccine Series Complete: YESThis Data wa s Submitted to [facility] Via [employer]. INFLUENZA VIRUS VACCINE QUADRIVALENT 2019- (6 MOS AN D UP) 06/04/2020 12:00:00 AM EST completed [facility] Medications Medication Brand Name Start Date Product Form Dose Route Admi nistrative Instructions Pharmacy Instructions Status Indications Reaction Description Data Source(s) gabapentin 300 MG Oral Capsule gabapentin 04/15/2021 12:00:00 AM EDT 300 mg by mouth completed <td ID="Medica tionRxNorm_3">393699</td><td ID="MedicationMedication_3">gabapentin</td><td ID="MedicationRoute_3">by mouth</td><td ID="MedicationRouteConcept_3">H33513</td><td ID="MedicationStartDate_3">04/15/2021</td><td ID="MedicationStopDate_3">09/15/2021</td><td ID="MedicationDosageFrequency_3">at bedtime</td><td ID="MedicationDuration_3">30</td><td ID="MedicationFormulaStrength_3">300 mg</td><td ID="MedicationDosageForm_3">capsule</td><td ID="MedicationDosageFormCode_3"></td><td ID="MedicationDosageDescription_3"></td><td ID="MedicationMedicationId_3">[id number]</td><td ID="MedicationAccount_3">[id number]</td><td ID="MedicationNpid_3">[id number]</td><td ID="MedicationAuthorFirstName_3">Colby</td><td ID="MedicationAuthorLastName_3">Jose</td><td ID="MedicationTaxonomyCode_3">[id number]</td><td ID="MedicationTaxonomyDesc_3">Nurse Practitioner</td><td ID="MedicationPhoneNumber_3">[phone]</td> [facility] ([facility]) Psyllium 14.2 MG/ML Oral Suspension [Metamucil] Metamucil 01/23/2021 12:00:00 AM EDT ORAL active MED[facility] ([facility], ) lamotrigine 200 MG Oral Tablet lamotrigine 08/15/2020 12:00:00 AM EST 200 mg by mouth completed <td ID="Medica tionRxNorm_2">[id number]</td><td ID="MedicationMedication_2">lamotrigine</td><td ID="MedicationRoute_2">by mouth</td><td ID="MedicationRouteConcept_2">Z07144</td><td ID="MedicationStartDate_2">08/15/2020</td><td ID="MedicationStopDate_2">08/16/2021</td><td ID="MedicationDosageFrequency_2">once a day</td><td ID="MedicationDuration_2">30</td><td ID="MedicationFormulaStrength_2">200 mg</td><td ID="MedicationDosageForm_2">tablet</td><td ID="MedicationDosageFormCode_2"></td><td ID="MedicationDosageDescription_2"></td><td ID="MedicationMedicationId_2">[id number]</td><td ID="MedicationAccount_2">[id number]</td><td ID="MedicationNpid_2">[id number]</td><td ID="MedicationAuthorFirstName_2">Colby</td><td ID="MedicationAuthorLastName_2">Jose</td><td ID="MedicationTaxonomyCode_2">[id number]</td><td ID="MedicationTaxonomyDesc_2">Nurse Practitioner</td><td ID="MedicationPhoneNumber_2">[phone]</td> [facility] Amoxicillin 875 MG / Clavulanate 125 MG Oral Tablet Amoxicillin-Pot Clavulanate 875-125 MG Amoxicillin-Pot Clavulanate 875-125 MG 08/13/2020 12:00:00 AM ES T 1.0 {tablet} active Amoxicillin-Pot Cla vulanate 875-125 MG eCW1 ([facility]) Amoxicillin 875 MG / Clavulanate 125 MG Oral Tablet Amoxicillin-Pot Clavulanate 875-125 MG Amoxicillin-Pot Clavulanate 875-125 MG 08/13/2020 12:00:00 AM ES T 1.0 {tablet} active Amoxicillin-Pot Cla vulanate 875-125 MG eCW1 ([facility]) Amoxicillin 875 MG / Clavulanate 125 MG Oral Tablet Amoxicillin-Pot Clavulanate 875-125 MG Amoxicillin-Pot Clavulanate 875-125 MG 08/13/2020 12:00:00 AM ES T 1.0 {tablet} active Amoxicillin-Pot Cla vulanate 875-125 MG eCW1 ([facility]) lamotrigine 150 MG Oral Tablet lamotrigine 07/04/2020 12:00:00 AM EST 150 mg by mouth completed <td ID="Medica tionRxNorm_3">022297</td><td ID="MedicationMedication_3">lamotrigine</td><td ID="MedicationRoute_3">by mouth</td><td ID="MedicationRouteConcept_3">D17673</td><td ID="MedicationStartDate_3">07/04/2020</td><td ID="MedicationStopDate_3">08/15/2020</td><td ID="MedicationDosageFrequency_3">once a day</td><td ID="MedicationDuration_3"></td><td ID="MedicationFormulaStrength_3">150 mg</td><td ID="MedicationDosageForm_3">tablet</td><td ID="MedicationDosageFormCode_3"></td><td ID="MedicationDosageDescription_3"></td><td ID="MedicationMedicationId_3">[id number]</td><td ID="MedicationAccount_3">[id number]</td><td ID="MedicationNpid_3">[id number]</td><td ID="MedicationAuthorFirstName_3">Michelle</td><td ID="MedicationAuthorLastName_3">[place]</td><td ID="MedicationTaxonomyCode_3">[id number]</td><td ID="MedicationTaxonomyDesc_3">Psychiatric/Mental Health</td><td ID="MedicationPhoneNumber_3">[phone]</td> [facility] ([facility]) 100 mg 05/30/2020 12:00:00 AM EST tablet [...] EDT active Pepcid 4 0 MG eCW1 ([facility]) Famotidine 40 MG Oral Tablet [Pepcid] Pepcid 40 MG Pepcid 40 MG 05/08/2020 12:00:00 AM EDT active Pepcid 4 0 MG eCW1 ([facility]) Famotidine 40 MG Oral Tablet [Pepcid] Pepcid 40 MG Pepcid 40 MG 05/08/2020 12:00:00 AM EDT active Pepcid 4 0 MG eCW1 ([facility]) Famotidine 40 MG Oral Tablet [Pepcid] Pepcid 40 MG Pepcid 40 MG 05/08/2020 12:00:00 AM EDT active Pepcid 4 0 MG eCW1 ([facility]) Famotidine 40 MG Oral Tablet [Pepcid] Pepcid 40 MG Pepcid 40 MG 05/08/2020 12:00:00 AM EDT active Pepcid 4 0 MG eCW1 ([facility]) Famotidine 40 MG Oral Tablet [Pepcid] Pepcid 40 MG Pepcid 40 MG 05/08/2020 12:00:00 AM EDT active Pepcid 4 0 MG eCW1 ([facility]) Famotidine 40 MG Oral Tablet [Pepcid] Pepcid 40 MG Pepcid 40 MG 05/08/2020 12:00:00 AM EDT active Pepcid 4 0 MG eCW1 ([facility]) Famotidine 40 MG Oral Tablet [Pepcid] Pepcid 40 MG Pepcid 40 MG 05/08/2020 12:00:00 AM EDT active Pepcid 4 0 MG eCW1 ([facility]) 5 mg 05/03/2020 12:00:00 AM EDT tablet [...] 300 mg by mouth completed <td ID="Medica tionRxNorm_4">984301</td><td ID="MedicationMedication_4">gabapentin</td><td ID="MedicationRoute_4">by mouth</td><td ID="MedicationRouteConcept_4">J99223</td><td ID="MedicationStartDate_4">06/28/2019</td><td ID="MedicationStopDate_4">09/18/2020</td><td ID="MedicationDosageFrequency_4">at bedtime</td><td ID="MedicationDuration_4">30</td><td ID="MedicationFormulaStrength_4">300 mg</td><td ID="MedicationDosageForm_4">capsule</td><td ID="MedicationDosageFormCode_4"></td><td ID="MedicationDosageDescription_4"></td><td ID="MedicationMedicationId_4">[id number]</td><td ID="MedicationAccount_4">[id number]</td><td ID="MedicationNpid_4">[id number]</td><td ID="MedicationAuthorFirstName_4">Michelle</td><td ID="MedicationAuthorLastName_4">[place]</td><td ID="MedicationTaxonomyCode_4">[id number]</td><td ID="MedicationTaxonomyDesc_4">Psychiatric/Mental Health</td><td ID="MedicationPhoneNumber_4">[phone]</td> [facility] ([facility]) gabapentin 300 MG Oral Capsule gabapentin 06/28/2019 12:00:00 AM EST 300 mg by mouth completed <td ID="Medica tionRxNorm_1">971080</td><td ID="MedicationMedication_1">gabapentin</td><td ID="MedicationRoute_1">by mouth</td><td ID="MedicationRouteConcept_1">B97043</td><td ID="MedicationStartDate_1">06/28/2019</td><td ID="MedicationStopDate_1">12/16/2020</td><td ID="MedicationDosageFrequency_1">at bedtime</td><td ID="MedicationDuration_1">30</td><td ID="MedicationFormulaStrength_1">300 mg</td><td ID="MedicationDosageForm_1">capsule</td><td ID="MedicationDosageFormCode_1"></td><td ID="MedicationDosageDescription_1"></td><td ID="MedicationMedicationId_1">[id number]</td><td ID="MedicationAccount_1">[id number]</td><td ID="MedicationNpid_1">[id number]</td><td ID="MedicationAuthorFirstName_1">Colby</td><td ID="MedicationAuthorLastName_1">Jose</td><td ID="MedicationTaxonomyCode_1">[id number]</td><td ID="MedicationTaxonomyDesc_1">Nurse Practitioner</td><td ID="MedicationPhoneNumber_1">[phone]</td> [facility] ([facility] Ergocalciferol 29933 UNT Oral Capsule Vitamin D2 04/13/2018 12:00 :00 AM EDT mcg by mouth completed <td ID="Me dicationRxNorm_2">[id number]</td><td ID="MedicationMedication_2">Vitamin D2</td><td ID="MedicationRoute_2">by mouth</td><td ID="MedicationRouteConcept_2">O71640</td><td ID="MedicationStartDate_2">04/13/2018</td><td ID="MedicationStopDate_2">05/27/2020</td><td ID="MedicationDosageFrequency_2">once a week</td><td ID="MedicationDuration_2">30</td><td ID="MedicationFormulaStrength_2">1,250 mcg (50,000 unit)</td><td ID="MedicationDosageForm_2">capsule</td><td ID="MedicationDosageFormCode_2"></td><td ID="MedicationDosageDescription_2">as directed</td><td ID="MedicationMedicationId_2">[id number]</td><td ID="MedicationAccount_2">[id number]</td><td ID="MedicationNpid_2">[id number]</td><td ID="MedicationAuthorFirstName_2">Michelle</td><td ID="MedicationAuthorLastName_2">Lina</td><td ID="MedicationTaxonomyCode_2">[id number]</td><td ID="MedicationTaxonomyDesc_2"> Psychiatric/Mental Health</td><td ID="MedicationPhoneNumber_2">[phone]</td> [facility] ([facility]) Ergocalciferol 66672 UNT Oral Capsule Vitamin D2 04/13/2018 12:00 :00 AM EDT mcg by mouth completed <td ID="Me dicationRxNorm_3">[id number]</td><td ID="MedicationMedication_3">Vitamin D2</td><td ID="MedicationRoute_3">by mouth</td><td ID="MedicationRouteConcept_3">V00117</td><td ID="MedicationStartDate_3">04/13/2018</td><td ID="MedicationStopDate_3">05/27/2020</td><td ID="MedicationDosageFrequency_3">once a week</td><td ID="MedicationDuration_3">30</td><td ID="MedicationFormulaStrength_3">1,250 mcg (50,000 unit)</td><td ID="MedicationDosageForm_3">capsule</td><td ID="MedicationDosageFormCode_3"></td><td ID="MedicationDosageDescription_3">as directed</td><td ID="MedicationMedicationId_3">[id number]</td><td ID="MedicationAccount_3">[id number]</td><td ID="MedicationNpid_3">[id number]</td><td ID="MedicationAuthorFirstName_3">Michelle</td><td ID="MedicationAuthorLastName_3">Lina</td><td ID="MedicationTaxonomyCode_3">[id number]</td><td ID="MedicationTaxonomyDesc_3"> Psychiatric/Mental Health</td><td ID="MedicationPhoneNumber_3">[phone]</td> [facility] ([facility]) Insurance Providers Payer name Policy type / Coverage type Policy ID Covered libertarian ID Covered libertarian's relationship to nelson Policy Nelson Plan Information [facility] [id number] SP [id number] [facility] [id number] SP [id number] EMEDNY [id number] SP [id number] MEDICAID [id number] SP [id number] [facility]) O [id number] S [id number] MEDICAID M [id number] S [id number] ANSI-Medicaid [id number] ANSI-Not a Secondary Insurance [id number] [facility] Health Maintenance Organization (HMO) [id number] [facility] [id number] ANSI-Medicaid [id number] ANSI-Not a Secondary Insurance [id number] ANSI-Medicaid [id number] ANSI-Not a Secondary Insurance [id number] ANSI-Medicaid [id number] ANSI-Not a Secondary Insurance [id number] ANSI-Medicaid [id number] ANSI-Not a Secondary Insurance [id number] ANSI-Not a Secondary Insurance [id number] ANSI-Medicaid [id number] ANSI-Medicaid [id number] ANSI-Not a Secondary Insurance [id number] ANSI-Not a Secondary Insurance [id number] ANSI-Medicaid [id number] ANSI-Not a Secondary Insurance [id number] ANSI-Medicaid [id number] ANSI-Medicaid [id number] ANSI-Not a Secondary Insurance [id number] ANSI-Not a Secondary Insurance [id number] ANSI-Medicaid [id number] ANSI-Not a Secondary Insurance [id number] ANSI-Medicaid [id number] ANSI-Medicaid [id number] ANSI-Not a Secondary Insurance [id number] ANSI-Medicaid [id number] ANSI-Not a Secondary Insurance [id number] ANSI-Medicaid [id number] ANSI-Not a Secondary Insurance [id number] ANSI-Medicaid [id number] ANSI-Not a Secondary Insurance [id number] ANSI-Not a Secondary Insurance [id number] ANSI-Medicaid [id number] ANSI-Not a Secondary Insurance [id number] ANSI-Medicaid [id number] ANSI-Medicaid [id number] ANSI-Not a Secondary Insurance [id number] [facility] [id number] SP [id number] [facility] MCRHMO [id number] SP [id number] MEDICARE [id number] SP [id number] [facility] CARLOS [id number] SP [id number] [facility] DUAL COMPLET MCRADVANT [id number] S [id number] MEDICARE - [place] MCR [id number] S [id number] SELF PAY SP UNAVAILABLE UNAVAILA BLE [facility]) O [id number] S [id number] MEDICARE C [id number] S 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 MEDICAID [id number] SP [id number] T [id number] Problems, Conditions, and Diagnoses Code Display Name Description Problem Type Effective Dates Data Source(s) F20.0 Paranoid schizophrenia Paranoid schizophrenia Conditio n 06/19/2021 12:00:00 AM EST [facility] ([facility] Surgeries/Procedures Procedure Description Date Indications Data Source(s) THERAPEUTIC PROPHYLACTIC/DX INJECTION SUBQ/IM 06/19/2021 12:00:00 AM EST - 06/19/2021 12:00:00 AM EST [facility] ([facility]) THERAPEUTIC PROPHYLACTIC/DX INJECTION SUBQ/IM 06/19/20 12:00:00 AM EST [facility] ([facility]) OFFICE OUTPATIENT VISIT 15 MINUTES 06/17 12:00:00 AM EST - 06/17/2021 12:00:00 AM EST [facility] ([facility]) OFFICE OUTPATIENT VISIT 15 MINUTES 06/17/2021 12:00:00 AM EST [facility] ([facility]) Psychiatric Diagnostic Evaluation with Medical Services 05/19/2021 12:00:00 AM EDT - 05/19/2021 12:00:00 AM EDT [facility] ([facility]) Psychiatric Diagnostic Evaluation with Medical Services 05/19/2021 12:00:00 AM EDT [facility] ([facility]) Brief Individual Psychotherapy - 30 min 05/01/2021 12:00:00 AM EDT - 05/01/2021 12:00:00 AM EDT [facility] ([facility]) Brief Individual Psychotherapy - 30 min 05/01/2021 12: 00:00 AM EDT [facility] ([facility]) OFFICE OUTPATIENT VISIT 15 MINUTES 04/15 12:00:00 AM EDT - 04/15/2021 12:00:00 AM EDT [facility] ([facility]) OFFICE OUTPATIENT VISIT 15 MINUTES 04/15/2021 12:00:00 AM EDT [facility] ([facility]) Brief Individual Psychotherapy - 30 min 04/10/2021 12:00:00 AM EDT - 04/10/2021 12:00:00 AM EDT [facility] ([facility]) Brief Individual Psychotherapy - 30 min 04/10/2021 12: 00:00 AM EDT [facility] ([facility]) THERAPEUTIC PROPHYLACTIC/DX INJECTION SUBQ/IM 03/21/2021 12:00:00 AM EDT - 03/21/2021 12:00:00 AM EDT [facility] ([facility]) THERAPEUTIC PROPHYLACTIC/DX INJECTION SUBQ/IM 03/21/20 12:00:00 AM EDT [facility] ([facility]) Brief Individual Psychotherapy - 30 min 02/27/2021 12:00:00 AM EDT - 02/27/2021 12:00:00 AM EDT [facility] ([facility]) Brief Individual Psychotherapy - 30 min 02/27/2021 12: 00:00 AM EDT [facility] ([facility]) OFFICE OUTPATIENT VISIT 15 MINUTES 01/23/2021 12:00:00 AM EDT [facility] ([facility], ) OFFICE OUTPATIENT VISIT 15 MINUTES 01/01 12:00:00 AM EDT - 01/01/2021 12:00:00 AM EDT [facility] ([facility]) OFFICE OUTPATIENT VISIT 15 MINUTES 01/01/2021 12:00:00 AM EDT [facility] ([facility]) THERAPEUTIC PROPHYLACTIC/DX INJECTION SUBQ/IM 12/19/2020 12:00:00 AM EDT - 12/19/2020 12:00:00 AM EDT [facility] ([facility]) THERAPEUTIC PROPHYLACTIC/DX INJECTION SUBQ/IM 12/20/19 12:00:00 AM EDT [facility] ([facility]) Brief Individual Psychotherapy - 30 min 11/13/2020 12:00:00 AM EDT - 11/13/2020 12:00:00 AM EDT [facility] ([facility]) Brief Individual Psychotherapy - 30 min 11/13/2020 12: 00:00 AM EDT [facility] ([facility]) Brief Individual Psychotherapy - 30 min 09/24/2020 12:00:00 AM EST - 09/24/2020 12:00:00 AM EST [facility] ([facility]) Brief Individual Psychotherapy - 30 min 09/24/2020 12: 00:00 AM EST [facility] ([facility]) Brief Individual Psychotherapy - 30 min 08/27/2020 12:00:00 AM EST - 08/27/2020 12:00:00 AM EST [facility] ([facility]) Brief Individual Psychotherapy - 30 min 08/27/2020 12: 00:00 AM EST [facility] ([facility]) MHC Telemed E/M Lvl 3--Est pt 08/15/2020 12:00:00 AM EST - 08/15/2020 12:00:00 AM EST [facility] ([facility]) MHC Telemed E/M Lvl 3--Est pt 08/15/2020 12:00:[address] [facility] ([facility]) Brief Individual Psychotherapy - 30 min 07/30/2020 12:00:00 AM EST - 07/30/2020 12:00:00 AM EST [facility] ([facility]) Brief Individual Psychotherapy - 30 min 07/30/2020 12: 00:00 AM EST [facility] ([facility]) OFFICE OUTPATIENT VISIT 15 MINUTES 07/04 12:00:00 AM EST - 07/04/2020 12:00:00 AM EST [facility] ([facility]) Psychotherapy ADD ON - 30 Minutes 07/04/2020 12:00:00 AM EST [facility] ([facility]) OFFICE OUTPATIENT VISIT 15 MINUTES 07/04/2020 12:00:00 AM EST [facility] ([facility]) Brief Individual Psychotherapy - 30 min 06/21/2020 12:00:00 AM EST - 06/21/2020 12:00:00 AM EST [facility] ([facility]) Brief Individual Psychotherapy - 30 min 06/21/2020 12: 00:00 AM EST [facility] ([facility]) THERAPEUTIC PROPHYLACTIC/DX INJECTION SUBQ/IM 06/20/2020 12:00:00 AM EST - 06/20/2020 12:00:00 AM EST [facility] ([facility]) THERAPEUTIC PROPHYLACTIC/DX INJECTION SUBQ/IM 06/20/20 12:00:00 AM EST [facility] ([facility]) Comprehensive medication services, per 15 minutes 06/18/2020 12:00:00 AM EST - 06/18/2020 12:00:00 AM EST [facility] ([facility]) Comprehensive medication services, per 15 minutes 06/18/2020 12:00:00 AM EST [facility] ([facility]) OFFICE OUTPATIENT VISIT 15 MINUTES 05/30 12:00:00 AM EST - 05/30/2020 12:00:00 AM EST [facility] ([facility]) Psychotherapy ADD ON - 30 Minutes 05/30/2020 12:00:00 AM EST [facility] ([facility]) OFFICE OUTPATIENT VISIT 15 MINUTES 05/30/2020 12:00:00 AM EST [facility] ([facility]) Brief Individual Psychotherapy - 30 min 05/02/2020 12:00:00 AM EDT - 05/02/2020 12:00:00 AM EDT [facility] ([facility]) Brief Individual Psychotherapy - 30 min 05/02/2020 12: 00:00 AM EDT [facility] ([facility]) MHC Telemed E/M Lvl 3--Est pt 04/30/2020 12:00:00 AM EDT - 04/30/2020 12:00:00 AM EDT [facility] ([facility]) Telemed A/O 30" 04/30/2020 12:00:00 AM EDT [facility] ([facility]) MHC Telemed E/M Lvl 3--Est pt 04/30/2020 12:00:00 AM E DT [facility] ([facility]) Results ID Date Data Source VITAMIN D 25-HYDROXY 03/20/2021 12:00:00 AM EDT eCW1 ([facility]) Name Value Range Interpretation Code Description Data Ifeoma rce(s) Supporting Document(s) 32.2 30.0-100.0 TOTAL 25(OH) VITAMIN D eC W1 ([facility]) ID Date Data Source TSH 03/20/2021 12:00:00 AM EDT eCW1 ([facility]) Name Value Range Interpretation Code Description Data Ifeoma rce(s) Supporting Document(s) 0.829 0.358-3.740 THYROID STIMULATING HORM ONE eCW1 ([facility]) ID Date Data Source LIPID PANEL (CARDIAC RISK) 03/20/2021 12:00:00 AM EDT eCW1 ( [facility]) Name Value Range Interpretation Code Description Data Ifeoma rce(s) Supporting Document(s) Triglyceride [Mass/volume] in Serum or Plasma by calculation 99 <150 TRIGLYCERIDES LEVEL eCW1 ([facility]) Cholesterol [Moles/volume] in Serum or Plasma 134 <200 CHOLESTEROL LEVEL eCW1 ([facility]) Cholesterol in HDL [Moles/volume] in Serum or Plasma 48 >40 HDL CHOLESTEROL eCW1 ([facility]) 86 NON-HDL-C eCW1 ([facility]) Cholesterol in LDL [Mass/volume] in Serum or Plasma by calculation 66 <100 LDL CHOLESTEROL eCW1 ([facility]) 2.791 <5 CHOLESTEROL RISK RATIO eCW1 ([facility]) ID Date Data Source [id number] 03/20/2021 12:00:00 AM EDT eCW1 ([facility]) Name Value Range Interpretation Code Description Data Ifeoma rce(s) Supporting Document(s) Hemoglobin A1c/Hemoglobin.total in Blood 5.8 HEMOGLOBIN A1c eCW1 ([facility]) ID Date Data Source FREE T4 03/20/2021 12:00:00 AM EDT eCW1 ([facility]) Name Value Range Interpretation Code Description Data Ifeoma rce(s) Supporting Document(s) 0.99 0.76-1.46 FREE T4 eCW1 ([facility]) ID Date Data Source Comprehensive Metabolic Profile (CMP) 03/20/2021 12:00:00 AM EDT eCW1 ([facility]) Name Value Range Interpretation Code Description Data Ifeoma rce(s) Supporting Document(s) 98 70-100 GLUCOSE, FASTING eCW1 ([facility]) 10 7-18 BLOOD UREA NITROGEN eCW1 ([facility]) 0.60 0.55-1.30 CREATININE FOR GFR eCW1 ([facility]) > 60.0 >51 GLOMERULAR FILTRATION RATE eCW 1 ([facility]) 143 136-145 SODIUM LEVEL eCW1 ([facility]) 4.2 3.5-5.1 POTASSIUM SERUM eCW1 ([facility]) 110 98-107 CHLORIDE LEVEL eCW1 ([facility]) 30 21-32 CARBON DIOXIDE LEVEL eCW1 ([facility]) 9.4 8.5-10.1 CALCIUM LEVEL eCW1 ([facility]) 11 7-37 AST/SGOT eCW1 ([facility]) 19 12-78 ALT/SGPT eCW1 ([facility]) 103 45-117 ALKALINE PHOSPHATASE eCW1 ([facility]) 0.5 0.2-1.0 BILIRUBIN,TOTAL eCW1 ([facility]) 7.0 6.4-8.2 TOTAL PROTEIN eCW1 ([facility]) 3.8 3.2-5.2 ALBUMIN eCW1 ([facility]) 1.2 1.2-2.2 ALBUMIN/GLOBULIN RATIO eCW1 ([facility]) ID Date Data Source [id number] 09/12/2020 12:00:00 AM EST eCW1 ([facility]) Name Value Range Interpretation Code Description Data Ifeoma rce(s) Supporting Document(s) Microalbumin/Creatinine [Mass Ratio] in Urine 135.0 CREATININE, URINE eCW1 ([facility]) Microalbumin/Creatinine [Ratio] in Urine 74.8 0.0-30.0 JEM/CREAT RATIO eCW1 ([facility]) Albumin/Creatinine [Mass Ratio] in Urine 101.0 MALB URINE SIEMENS eCW1 ([facility]) ID Date Data Source FREE T4 & TSH PANEL 09/12/2020 12:00:00 AM EST eCW1 ([facility]) Name Value Range Interpretation Code Description Data Ifeoma rce(s) Supporting Document(s) 0.766 0.358-3.740 THYROID STIMULATING HORM ONE eCW1 ([facility]) 0.96 0.76-1.46 FREE T4 eCW1 ([facility]) ID Date Data Source PTH INTACT 09/12/2020 12:00:00 AM EST eCW1 ([facility]) Name Value Range Interpretation Code Description Data Ifeoma rce(s) Supporting Document(s) 49.4 18.5-88.0 PTH INTACT eCW1 ([facility]) ID Date Data Source CBC with Differential 09/12/2020 12:00:00 AM EST eCW1 ([facility]) Name Value Range Interpretation Code Description Data Ifeoma rce(s) Supporting Document(s) 5.1 4.0-10.0 WHITE BLOOD COUNT eCW1 ([facility]) 12.2 12.0-15.5 HEMOGLOBIN eCW1 ([facility]) 4.14 4.00-5.40 RED BLOOD COUNT eCW1 ([facility]) 37.6 36.0-47.0 HEMATOCRIT eCW1 ([facility]) 90.8 80.0-96.0 MEAN CORPUSCULAR VOLUME e CW1 ([facility]) 29.5 27.0-33.0 MEAN CORPUSCULAR HEMOGLOB IN eCW1 ([facility]) 13.3 11.5-14.5 RED CELL DISTRIBUTION WID TH eCW1 ([facility]) 227 150-450 PLATELET COUNT, AUTOMATED eCW1 ([facility]) 32.4 32.0-36.5 MEAN CORPUSCULAR HGB CONC eCW1 ([facility]) 2.5 0.0-3.0 EOS % eCW1 ([facility]) 27.4 24.0-44.0 LYMPH % eCW1 ([facility]) 5.5 2.0-8.0 MONO % eCW1 ([facility]) 64.0 36.0-66.0 NEUTROPHILS % eCW1 ([facility]) 0.3 0.0-0.8 MONO # eCW1 ([facility]) 0.4 0.0-1.0 BASO % eCW1 ([facility]) 1.4 1.5-5.0 LYMPH # eCW1 ([facility]) 3.3 1.5-8.5 NEUTROPHILS # eCW1 ([facility]) 0.0 0.0-0.2 BASO # eCW1 ([facility]) 0.1 0.0-0.5 EOS # eCW1 ([facility]) ID Date Data Source [id number] 06/11/2020 03:08:00 PM EST [facility] Name Value Range Interpretation Code Description Data Ifeoma rce(s) Supporting Document(s) SARS coronavirus 2 RNA [facility] This lab was ordered by [facility] and reported by [facility]. Procedure Social History Code Duration Value Status Description Data Source(s ) Smoking 06/19/2021 12:00:00 AM EST Unknown if ever smoked comp leted Unknown if ever smoked [facility] ([facility]) Smoking 06/17/2021 12:00:00 AM EST Unknown if ever smoked comp leted Unknown if ever smoked [facility] ([facility]) Smoking 05/19/2021 12:00:00 AM EDT Unknown if ever smoked comp leted Unknown if ever smoked [facility] ([facility]) Smoking 05/05/2021 12:00:00 AM EDT Former Smoker completed Former Smoker eCW1 ([facility]) Smoking 05/05/2021 12:00:00 AM EDT Former Smoker completed Former Smoker eCW1 ([facility]) Smoking 05/05/2021 12:00:00 AM EDT Former Smoker completed Former Smoker eCW1 ([facility]) Smoking 05/05/2021 12:00:00 AM EDT Former Smoker completed Former Smoker eCW1 ([facility]) Smoking 05/05/2021 12:00:00 AM EDT Former Smoker completed Former Smoker eCW1 ([facility]) Smoking 05/01/2021 12:00:00 AM EDT Unknown if ever smoked comp leted Unknown if ever smoked [facility] ([facility]) Smoking 04/15/2021 12:00:00 AM EDT Unknown if ever smoked comp leted Unknown if ever smoked [facility] ([facility]) Smoking 04/10/2021 12:00:00 AM EDT Unknown if ever smoked comp leted Unknown if ever smoked [facility] ([facility]) Smoking 03/21/2021 12:00:00 AM EDT Unknown if ever smoked comp leted Unknown if ever smoked [facility] ([facility]) Smoking 03/20/2021 12:00:00 AM EDT Former Smoker completed Former Smoker eCW1 ([facility]) Smoking 03/20/2021 12:00:00 AM EDT Former Smoker completed Former Smoker eCW1 ([facility]) Smoking 02/27/2021 12:00:00 AM EDT Unknown if ever smoked comp leted Unknown if ever smoked [facility] ([facility]) Smoking 01/01/2021 12:00:00 AM EDT Unknown if ever smoked comp leted Unknown if ever smoked [facility] ([facility]) Smoking 12/19/2020 12:00:00 AM EDT Unknown if ever smoked comp leted Unknown if ever smoked [facility] ([facility]) Smoking 11/13/2020 12:00:00 AM EDT Unknown if ever smoked comp leted Unknown if ever smoked [facility] ([facility]) Smoking 09/24/2020 12:00:00 AM EST Unknown if ever smoked comp leted Unknown if ever smoked [facility] ([facility]) Smoking 09/12/2020 12:00:00 AM EST Former Smoker completed Former Smoker eCW1 ([facility]) Smoking 09/12/2020 12:00:00 AM EST Former Smoker completed Former Smoker eCW1 ([facility]) Smoking 09/12/2020 12:00:00 AM EST Former Smoker completed Former Smoker eCW1 ([facility]) Smoking 09/12/2020 12:00:00 AM EST Former Smoker completed Former Smoker eCW1 ([facility]) Smoking 09/12/2020 12:00:00 AM EST Former Smoker completed Former Smoker eCW1 ([facility]) Smoking 09/12/2020 12:00:00 AM EST Former Smoker completed Former Smoker eCW1 ([facility]) Smoking 08/27/2020 12:00:00 AM EST Unknown if ever smoked comp leted Unknown if ever smoked [facility] ([facility]) Smoking 08/15/2020 12:00:00 AM EST Unknown if ever smoked comp leted Unknown if ever smoked [facility] ([facility]) Smoking 08/13/2020 12:00:00 AM EST Former Smoker completed Former Smoker eCW1 ([facility]) Smoking 08/13/2020 12:00:00 AM EST Former Smoker completed Former Smoker eCW1 ([facility]) Smoking 08/13/2020 12:00:00 AM EST Former Smoker completed Former Smoker eCW1 ([facility]) Smoking 07/30/2020 12:00:00 AM EST Unknown if ever smoked comp leted Unknown if ever smoked [facility] ([facility]) Smoking 07/04/2020 12:00:00 AM EST Unknown if ever smoked comp leted Unknown if ever smoked [facility] ([facility]) Smoking 06/21/2020 12:00:00 AM EST Unknown if ever smoked comp leted Unknown if ever smoked [facility] ([facility]) Smoking 06/20/2020 12:00:00 AM EST Unknown if ever smoked comp leted Unknown if ever smoked [facility] ([facility]) Smoking 06/18/2020 12:00:00 AM EST Unknown if ever smoked comp leted Unknown if ever smoked [facility] ([facility]) Smoking 06/11/2020 12:00:00 AM EST Former Smoker completed Former Smoker eCW1 ([facility]) Smoking 06/11/2020 12:00:00 AM EST Former Smoker completed Former Smoker eCW1 ([facility]) Smoking 06/11/2020 12:00:00 AM EST Former Smoker completed Former Smoker eCW1 ([facility]) Smoking 06/11/2020 12:00:00 AM EST Former Smoker completed Former Smoker eCW1 ([facility]) Smoking 05/30/2020 12:00:00 AM EST Unknown if ever smoked comp leted Unknown if ever smoked [facility] ([facility]) Smoking 05/08/2020 12:00:00 AM EDT Former Smoker completed Former Smoker eCW1 ([facility]) Smoking 05/02/2020 12:00:00 AM EDT Unknown if ever smoked comp leted Unknown if ever smoked [facility] ([facility]) Smoking 04/30/2020 12:00:00 AM EDT Unknown if ever smoked comp leted Unknown if ever smoked [facility] ([facility]) Vital Signs ID Date Data Source UNK Name Value Range Interpretation Code Description Data Source(s) Body temperature 96.6 [degF] 96.6 [degF] eCW1 ( [facility]) Systolic blood pressure 100 mm[Hg] 100 mm[Hg] e CW1 ([facility]) Diastolic blood pressure 68 mm[Hg] 68 mm[Hg] eCW1 ([facility]) Body weight 191 [lb_av] 191 [lb_av] eCW1 ([facility]) Body height 66 [in_i] 66 [in_i] eCW1 ([facility]) Body mass index (BMI) [Ratio] 30.82 kg/m2 30.82 kg/m2 eCW1 ([facility]) Heart rate 72 /min 72 /min eCW1 ([facility]) Respiratory rate 18 /min 18 /min eCW1 ([facility]) [place] body weight 125 [lb_av] 125 [lb_av] GERDAEN T ([facility], ) Body surface area Derived from formula 1.94 m2 1.94 m2 MEDSUGAR ([facility], ) Body weight 86.184 kg 86.184 kg ITALIA ([facility], ) Body height 65 [in_i] 65 [in_i] MEDENT ([facility]) 5'5" Body weight 190.00 [lb_av] 190.00 [lb_av] MEDEN T ([facility]) Body mass index (BMI) [Ratio] 31.6 kg/m2 31.6 k g/m2 [facility] [facility] Diastolic blood pressure 70 mm[Hg] 70 mm[Hg] MEDENT ([facility]) Systolic blood pressure 124 mm[Hg] 124 mm[Hg] M EDENT ([facility]) Body height 65 [in_i] 65 [in_i] MEDENT ([facility]) 5'5" Body weight 190.00 [lb_av] 190.00 [lb_av] MEDEN T ([facility]) Body mass index (BMI) [Ratio] 31.6 kg/m2 31.6 k g/m2 [facility] ([facility]) [place] body weight 125 [lb_av] 125 [lb_av] MEDEN T ([facility]) Body weight 86.184 kg 86.184 kg [facility] ([facility]) Body surface area Derived from formula 1.94 m2 1.94 m2 [facility] ([facility]) Body weight 190.6 [lb_av] 190.6 [lb_av] eCW1 ([facility]) Body height 66 [in_i] 66 [in_i] eCW1 ([facility]) Diastolic blood pressure 74 mm[Hg] 74 mm[Hg] eCW1 ([facility]) Body mass index (BMI) [Ratio] 30.76 kg/m2 30.76 kg/m2 eCW1 ([facility]) Heart rate 89 /min 89 /min eCW1 ([facility]) Respiratory rate 18 /min 18 /min eCW1 ([facility]) Body temperature 98.1 [degF] 98.1 [degF] eCW1 ( [facility]) Systolic blood pressure 112 mm[Hg] 112 mm[Hg] e CW1 ([facility]) Diastolic blood pressure 0 mm[Hg] Normal (applies to non-numeric results) 0 mm[Hg] [facility] ([facility]) Body height 0.00 in Normal (applies to non-numeric resu lts) 0.00 in [facility] ([facility]) Body weight Measured 0.00 lbs Normal (applies to n on-numeric results) 0.00 lbs [facility] Body mass index (BMI) [Ratio] 0.00 kg/m2 No rmal (applies to non-numeric results) 0.00 kg/m2 [facility] ([facility]) Systolic blood pressure 0 mm[Hg] Normal (applies t o non-numeric results) 0 mm[Hg] [facility] ([facility]) Body weight 194 [lb_av] 194 [lb_av] eCW1 ([facility]) Body height 66 [in_i] 66 [in_i] eCW1 ([facility]) Respiratory rate 18 /min 18 /min eCW1 ([facility]) Body temperature 97.9 [degF] 97.9 [degF] eCW1 ( [facility]) Systolic blood pressure 122 mm[Hg] 122 mm[Hg] e CW1 ([facility]) Diastolic blood pressure 74 mm[Hg] 74 mm[Hg] eCW1 ([facility]) Heart rate 106 /min 106 /min W1 ([facility]) Body mass index (BMI) [Ratio] 31.31 kg/m2 31.31 kg/m2 W1 ([facility]) Body height 0.00 in Normal (applies to non-numeric resu lts) 0.00 in [facility] ([facility]) Body mass index (BMI) [Ratio] 0.00 kg/m2 No rmal (applies to non-numeric results) 0.00 kg/m2 [facility] ([facility]) Systolic blood pressure 0 mm[Hg] Normal (applies t o non-numeric results) 0 mm[Hg] [facility] ([facility]) Body weight Measured 0.00 lbs Normal (applies to n on-numeric results) 0.00 lbs [facility]) Diastolic blood pressure 0 mm[Hg] Normal (applies to non-numeric results) 0 mm[Hg] [facility] ([facility]) Body height 0.00 in Normal (applies to non-numeric resu lts) 0.00 in [facility]) Body weight Measured 0.00 lbs Normal (applies to n on-numeric results) 0.00 lbs [facility] ([facility]) Body mass index (BMI) [Ratio] 0.00 kg/m2 No rmal (applies to non-numeric results) 0.00 kg/m2 [facility] ([facility]) Systolic blood pressure 0 mm[Hg] Normal (applies t o non-numeric results) 0 mm[Hg] [facility] ([facility]) Diastolic blood pressure 0 mm[Hg] Normal (applies to non-numeric results) 0 mm[Hg] [facility] Body weight 192 [lb_av] 192 [lb_av] eCW1 ([facility]) Body height 66 [in_i] 66 [in_i] eCW1 ([facility]) Body mass index (BMI) [Ratio] 30.99 kg/m2 30.99 kg/m2 W1 ([facility]) Heart rate 88 /min 88 /min W1 ([facility]) Respiratory rate 20 /min 20 /min W1 ([facility]) Body temperature 97 [degF] 97 [degF] eCW1 ([facility]) Systolic blood pressure 130 mm[Hg] 130 mm[Hg] e CW1 ([facility]) Diastolic blood pressure 80 mm[Hg] 80 mm[Hg] eCW1 ([facility]) Body height 0.00 in Normal (applies to non-numeric resu lts) 0.00 in [facility] ([facility]) Body weight Measured 0.00 lbs Normal (applies to n on-numeric results) 0.00 lbs [facility] ([facility]) Systolic blood pressure 0 mm[Hg] Normal (applies t o non-numeric results) 0 mm[Hg] [facility] ([facility]) Diastolic blood pressure 0 mm[Hg] Normal (applies to non-numeric results) 0 mm[Hg] [facility] ([facility]) Body mass index (BMI) [Ratio] 0.00 kg/m2 No rmal (applies to non-numeric results) 0.00 kg/m2 [facility] ([facility]) Patient Treatment Plan of Care Planned Activity Planned Date Details Description Data Source (s) Amoxicillin 875 MG / Clavulanate 125 MG Oral Tablet 08/13/19 12:00:00 AM EST eCW1 ([facility]) Amoxicillin 875 MG / Clavulanate 125 MG Oral Tablet 08/13/19 12:00:00 AM EST eCW1 ([facility]) Amoxicillin 875 MG / Clavulanate 125 MG Oral Tablet 08/13/19 12:00:00 AM EST eCW1 ([facility]) Famotidine 40 MG Oral Tablet [Pepcid] 05/08/2020 12:00:00 AM EDT eCW1 ([facility]) Famotidine 40 MG Oral Tablet [Pepcid] 05/08/2020 12:00:00 AM EDT eCW1 ([facility]) Famotidine 40 MG Oral Tablet [Pepcid] 05/08/2020 12:00:00 AM EDT eCW1 ([facility]) Famotidine 40 MG Oral Tablet [Pepcid] 05/08/2020 12:00:00 AM EDT eCW1 ([facility]) Famotidine 40 MG Oral Tablet [Pepcid] 05/08/2020 12:00:00 AM EDT eCW1 ([facility])
== END 2021-06-26 14:06 | disposition home or self-care (01) ==
LOC: M ED 12:31
DX: L84 Corns and callosities (principal); E11.9 Type 2 diabetes mellitus without complications; I10 Essential (primary) hypertension; E78.5 Hyperlipidemia, unspecified; J44.9 Chronic obstructive pulmonary disease, unspecified; Z79.899 Other long term (current) drug therapy; Z79.84 Long term (current) use of oral hypoglycemic drugs; Z87.891 Personal history of nicotine dependence

== ENCOUNTER → 2021-09-03 | Outpatient (CLI) | payer MEDICARE, MEDICAID ==
[~2021-09-03] MED LIST changes: +BENA1TAB23 PO; -BENA5TA PO; +FAMO40TA3; +GABA-282; +LAC-LOT2 TOP; +LAMO200T3; +METF500T13; +MOME50SP2; -MONT10TA10 PO; +MONT10TA97 PO; -OLOP0.1D OU; +OLOP5DRO16 OU
[2021-09-03 13:14] LABS: BASO % 0.6 % (0.0-1.0); EOS # 0.1 10^3/uL (0.0-0.5); EOS % 1.5 % (0.0-3.0); HEMATOCRIT 39.4 % (36.0-47.0); HEMOGLOBIN 13.2 g/dl (12.0-15.5); LYMPH # 1.9 10^3/uL (1.5-5.0); LYMPH % 36.3 % (24.0-44.0); MEAN CORPUSCULAR HEMOGLOBIN 30.5 pg (27.0-33.0); MEAN CORPUSCULAR HGB CONC 33.5 g/dl (32.0-36.5); MONO # 0.3 10^3/uL (0.0-0.8); MONO % 5.9 % (2.0-8.0); NEUTROPHILS # 2.9 10^3/uL (1.5-8.5); NEUTROPHILS % 55.5 % (36.0-66.0); PLATELET COUNT, AUTOMATED 208 10^3/uL (150-450); RED BLOOD COUNT 4.33 10^6/uL (4.00-5.40); WHITE BLOOD COUNT 5.3 10^3/uL (4.0-10.0)
[2021-09-03 13:39] LABS: HEMOGLOBIN A1c 5.6 %
[2021-09-03 13:52] LABS: ALBUMIN 3.8 GM/DL (3.2-5.2); ALT/SGPT 17 U/L (12-78); BILIRUBIN,TOTAL 0.3 MG/DL (0.2-1.0); BLOOD UREA NITROGEN 10 MG/DL (7-18); CALCIUM LEVEL 9.6 MG/DL (8.5-10.1); CARBON DIOXIDE LEVEL 28 MEQ/L (21-32); CHLORIDE LEVEL 108 MEQ/L (98-107); FREE T4 0.95 NG/DL (0.76-1.46); GLOMERULAR FILTRATION RATE > 60.0 (>51); GLUCOSE, FASTING 109 MG/DL (70-100); POTASSIUM SERUM 4.5 MEQ/L (3.5-5.1); SODIUM LEVEL 144 MEQ/L (136-145); THYROID STIMULATING HORMONE 0.684 uIU/ML (0.358-3.740); TOTAL PROTEIN 7.2 GM/DL (6.4-8.2)
[2021-09-03 16:58] LABS: TOTAL 25(OH) VITAMIN D 23.2 NG/ML (30.0-100.0)
[2021-09-03 16:59] LABS: PTH INTACT 66.7 PG/ML (18.5-88.0)
== END ==
LOC: M PLALAB 11:44
PROVIDERS: ATTEND Physician Assistant Medical
DX: E55.9 Vitamin D deficiency, unspecified (principal); E11.9 Type 2 diabetes mellitus without complications; I10 Essential (primary) hypertension; E03.9 Hypothyroidism, unspecified

== ENCOUNTER → 2022-01-07 | Outpatient (CLI) | payer MEDICARE, MEDICAID ==
[2022-01-07 13:43] LABS: CHOLESTEROL RISK RATIO 2.617 (<5)
[2022-01-07 14:48] LABS: HEMOGLOBIN A1c 5.7 %
== END ==
LOC: M PLALAB 10:37
PROVIDERS: ATTEND Physician Assistant Medical
DX: E78.00 Pure hypercholesterolemia, unspecified (principal); E11.9 Type 2 diabetes mellitus without complications

== ENCOUNTER → 2022-01-21 | Outpatient (CLI) | payer MEDICARE, MEDICAID | LOC: M CARPUL 12:28 | PROVIDERS: ATTEND Physician Assistant Medical | DX: J44.9 Chronic obstructive pulmonary disease, unspecified (principal) ==

== ENCOUNTER → 2022-04-27 | Outpatient (REF) | payer MEDICARE, MEDICAID | LOC: M SFHCPLAZ 16:49 | PROVIDERS: ATTEND Physician Assistant Medical | DX: J01.10 Acute frontal sinusitis, unspecified (principal) ==

== ENCOUNTER → 2022-05-20 | Outpatient (CLI) | payer MEDICARE, MEDICAID | LOC: M WHC 12:08 | PROVIDERS: ATTEND Physician Assistant Medical | DX: Z12.31 Encounter for screening mammogram for malignant neoplasm of breast (principal); R92.8 Other abnormal and inconclusive findings on diagnostic imaging of breast; N63.15 Unspecified lump in the right breast, overlapping quadrants ==

== ENCOUNTER → 2022-06-17 | Outpatient (REF) | payer MEDICARE, MEDICAID | LOC: M LAB REF 16:43 | PROVIDERS: ATTEND Physician Assistant | DX: B34.9 Viral infection, unspecified (principal) ==

== ENCOUNTER → 2022-06-22 | Outpatient (CLI) | payer MEDICARE, MEDICAID | LOC: M WHC 12:41 | PROVIDERS: ATTEND Physician Assistant Medical | DX: Z12.39 Encounter for other screening for malignant neoplasm of breast (principal); N60.02 Solitary cyst of left breast | CPT/HCPCS: 76642; 77066; G0279 ==

== ENCOUNTER → 2022-09-28 | Outpatient (CLI) | payer MEDICARE, MEDICAID ==
[2022-09-28 16:11] LABS: BASO % 0.3 % (0.0-1.0); EOS # 0.1 10^3/uL (0.0-0.5); HEMATOCRIT 39.5 % (36.0-47.0); LYMPH # 1.6 10^3/uL (1.5-5.0); LYMPH % 27.6 % (24.0-44.0); MEAN CORPUSCULAR HGB CONC 32.9 g/dl (32.0-36.5); MONO # 0.3 10^3/uL (0.0-0.8); MONO % 5.6 % (2.0-8.0); NEUTROPHILS # 3.7 10^3/uL (1.5-8.5); NEUTROPHILS % 65.3 % (36.0-66.0); PLATELET COUNT, AUTOMATED 237 10^3/uL (150-450); RED BLOOD COUNT 4.34 10^6/uL (4.00-5.40); WHITE BLOOD COUNT 5.7 10^3/uL (4.0-10.0)
[2022-09-28 16:46] LABS: ALBUMIN 3.9 G/DL (3.2-5.2); ALKALINE PHOSPHATASE 108 U/L (46-116); ALT/SGPT 13 U/L (7.0-40); AST/SGOT 13 U/L (<34); BILIRUBIN,TOTAL 0.4 MG/DL (0.3-1.2); BLOOD UREA NITROGEN 14 MG/DL (9-23); CALCIUM LEVEL 9.2 MG/DL (8.3-10.6); CARBON DIOXIDE LEVEL 28 MMOL/L (20-31); CHLORIDE LEVEL 106 MMOL/L (98-107); CHOLESTEROL LEVEL 117 MG/DL (<200); CHOLESTEROL RISK RATIO 2.44 (<5); GLOMERULAR FILTRATION RATE > 60.0 (>45); GLUCOSE, FASTING 107 MG/DL (74-106); HDL CHOLESTEROL 47.8 MG/DL (>40); LDL CHOLESTEROL 50.8 MG/DL (<100); NON-HDL-C 69.2 MG/DL; POTASSIUM SERUM 4.4 MMOL/L (3.5-5.1); SODIUM LEVEL 141 MMOL/L (136-145); TOTAL PROTEIN 6.8 G/DL (5.7-8.2); TRIGLYCERIDES LEVEL 92 MG/DL (<150)
== END ==
LOC: M PLALAB 12:49
PROVIDERS: ATTEND Physician Assistant Medical
DX: E78.00 Pure hypercholesterolemia, unspecified (principal); E11.9 Type 2 diabetes mellitus without complications; I10 Essential (primary) hypertension

== ENCOUNTER → 2023-04-01 | Outpatient (CLI) | payer MEDICARE, MEDICAID ==
[~2023-04-01] MED LIST changes: +BENZ0.5T2 PO; -BENZ0.5T23 PO; -OLOP5DRO16 OU; +OLOP5DRO17 OU
[2023-04-01 13:26] LABS: BASO % 0.7 % (0.0-1.0); EOS # 0.1 10^3/uL (0.0-0.5); EOS % 1.4 % (0.0-3.0); HEMATOCRIT 37.8 % (36.0-47.0); HEMOGLOBIN 12.6 g/dl (12.0-15.5); LYMPH # 1.6 10^3/uL (1.5-5.0); LYMPH % 29.2 % (24.0-44.0); MEAN CORPUSCULAR HGB CONC 33.3 g/dl (32.0-36.5); MEAN CORPUSCULAR VOLUME 92.9 fl (80.0-96.0); MONO # 0.3 10^3/uL (0.0-0.8); MONO % 5.5 % (2.0-8.0); NEUTROPHILS # 3.5 10^3/uL (1.5-8.5); PLATELET COUNT, AUTOMATED 219 10^3/uL (150-450); RED BLOOD COUNT 4.07 10^6/uL (4.00-5.40); WHITE BLOOD COUNT 5.6 10^3/uL (4.0-10.0)
[2023-04-01 13:48] LABS: HEMOGLOBIN A1c 6.6 % (4.0-6.0)
[2023-04-01 13:52] LABS: ALBUMIN 3.8 G/DL (3.2-5.2); ALKALINE PHOSPHATASE 115 U/L (46-116); ALT/SGPT 22 U/L (7.0-40); AST/SGOT 9 U/L (<34); BILIRUBIN,TOTAL 0.4 MG/DL (0.3-1.2); BLOOD UREA NITROGEN 14 MG/DL (9-23); CALCIUM LEVEL 9.2 MG/DL (8.3-10.6); CARBON DIOXIDE LEVEL 29 MMOL/L (20-31); CHLORIDE LEVEL 105 MMOL/L (98-107); CHOLESTEROL LEVEL 136 MG/DL (<200); CHOLESTEROL RISK RATIO 3.24 (<5); CREATININE FOR GFR 0.68 MG/DL (0.55-1.30); GLOMERULAR FILTRATION RATE > 60.0 (>45); GLUCOSE, FASTING 115 MG/DL (74-106); HDL CHOLESTEROL 41.9 MG/DL (>40); LDL CHOLESTEROL 72.1 MG/DL (<100); NON-HDL-C 94.1 MG/DL; POTASSIUM SERUM 4.4 MMOL/L (3.5-5.1); SODIUM LEVEL 142 MMOL/L (136-145); TOTAL PROTEIN 6.9 G/DL (5.7-8.2); TRIGLYCERIDES LEVEL 110 MG/DL (<150)
== END ==
LOC: M PLALAB 11:24
PROVIDERS: ATTEND Physician Assistant Medical
DX: K21.9 Gastro-esophageal reflux disease without esophagitis (principal); E78.00 Pure hypercholesterolemia, unspecified; I10 Essential (primary) hypertension; E11.9 Type 2 diabetes mellitus without complications

== ENCOUNTER → 2023-10-05 | Outpatient (REF) | payer MEDICARE, MEDICAID ==
[2023-10-05 14:26] LABS: RSV AMPLIFICATION NEGATIVE (NEGATIVE)
== END ==
LOC: M SFHCPLAZ 13:19
PROVIDERS: ATTEND Nurse Practitioner Family
DX: B34.9 Viral infection, unspecified (principal)

== ENCOUNTER 2023-12-09 08:49 | Emergency (ER) | payer MEDICARE, MEDICAID ==
[~2023-12-09] VITALS: Ht 165.1 cm; Wt 95.2 kg
[2023-12-09] MEDS: ACETAMINOPHEN TAB 650MG DOSE (2X325MG) PO ONE (10:43)
[2023-12-09 11:02] VITALS: BP 137/78; TEMP 96.9; O2SAT 95
== END 2023-12-09 11:43 | disposition home or self-care (01) ==
LOC: M ED 08:49 → EDBD 08:49 → M ED 11:43
DX: S52.501A Unspecified fracture of the lower end of right radius, initial encounter for closed fracture (principal); V03.10XA Pedestrian on foot injured in collision with car, pick-up truck or van in traffic accident, initial encounter; Y92.410 Unspecified street and highway as the place of occurrence of the external cause; Y93.9 Activity, unspecified; Y99.9 Unspecified external cause status; E11.9 Type 2 diabetes mellitus without complications; I10 Essential (primary) hypertension; J44.9 Chronic obstructive pulmonary disease, unspecified; Z86.73 Personal history of transient ischemic attack (TIA), and cerebral infarction without residual deficits; E04.2 Nontoxic multinodular goiter; Z79.84 Long term (current) use of oral hypoglycemic drugs; Z79.899 Other long term (current) drug therapy

== ENCOUNTER 2023-12-17 11:27 | Day surgery (SDC) | payer MEDICARE, MEDICAID ==
[~2023-12-17] VITALS: Ht 166.4 cm; Wt 94.8 kg
[~2023-12-17 11:27] MED LIST changes: +ERGO500029 PO; -FAMO40TA3; +FAMO40TA3 PO; +FLORCAP6 PO; -GABA-282; +GABA-282 PO; +LIDOCAINE 2% 100MG/5ML SDV (FOR ANES.) As Ordered ONE; -METF500T13; +METF500T13 PO; +MIDAZOLAM INJ 2MG/2ML VIAL As Ordered ONE; +ONDANSETRON 4MG 2ML VIAL As Ordered ONE; +PALI1TAB2 PO; +ROCURONIUM BROMIDE 50MG/5ML VIAL As Ordered ONE; +SERT25TA21 PO; +fentaNYL 250 MCG/5 ML INJECTION As Ordered ONE; +propofoL 200 MG/20 ML VIAL As Ordered ONE
[2023-12-17] MEDS ORDERED: fentaNYL 100 MCG/2 ML INJECTION As Ordered ONE (11:56)
[2023-12-17] MEDS ORDERED: ACETAMINOPHEN 1000MG 100ML IV BAG As Ordered ONE (11:56)
[2023-12-17] MEDS ORDERED: KETOROLAC 60MG 2ML VIAL As Ordered ONE (11:57)
[2023-12-17] MEDS: LR 1,000 ML IV SCH (12:26)
[2023-12-17] MEDS: ceFAZolin 2 GM/D5W 50 ML IV BAG As Ordered ONE (12:49)
[2023-12-17] MEDS ORDERED: fentaNYL 100 MCG/2 ML INJECTION IV PRN (14:00)
[2023-12-17] MEDS ORDERED: LR 1,000 ML IV SCH (14:00)
[2023-12-17] MEDS ORDERED: HYDROMORPHONE HCL 0.5 MG/ 0.5 ML SYRINGE IV PRN (14:00)
[2023-12-17] MEDS ORDERED: PERC5TAB12 PO (14:07)
[2023-12-17] MEDS: ONDANSETRON 4MG 2ML VIAL IV PRN (14:13)
[2023-12-17] MEDS: oxyCODONE 5MG TAB PO PRN (14:14)
[2023-12-17 15:02] VITALS: BP 142/82; TEMP 96.9; O2SAT 96
== END 2023-12-17 15:05 | disposition home or self-care (01) ==
LOC: M SDC 11:27
PROVIDERS: ATTEND Orthopaedic Surgery
DX: S52.551A Other extraarticular fracture of lower end of right radius, initial encounter for closed fracture (principal); W18.30XA Fall on same level, unspecified, initial encounter; Y93.9 Activity, unspecified; Y92.9 Unspecified place or not applicable; E11.9 Type 2 diabetes mellitus without complications; I10 Essential (primary) hypertension; E78.00 Pure hypercholesterolemia, unspecified; I69.30 Unspecified sequelae of cerebral infarction; Z86.718 Personal history of other venous thrombosis and embolism; F20.9 Schizophrenia, unspecified; Z79.899 Other long term (current) drug therapy; Z79.84 Long term (current) use of oral hypoglycemic drugs; J44.9 Chronic obstructive pulmonary disease, unspecified
CPT/HCPCS: 25607; C1713; J0131; J0665; J0690; J1100; J1885; J2250; J2405; J3010

== ENCOUNTER → 2023-12-29 | Outpatient (CLI) | payer MEDICARE, MEDICAID ==
[~2023-12-29] MED LIST changes: -LIDOCAINE 2% 100MG/5ML SDV (FOR ANES.) As Ordered ONE; -MIDAZOLAM INJ 2MG/2ML VIAL As Ordered ONE; -ONDANSETRON 4MG 2ML VIAL As Ordered ONE; +PERC5TAB12 PO; -ROCURONIUM BROMIDE 50MG/5ML VIAL As Ordered ONE; -fentaNYL 250 MCG/5 ML INJECTION As Ordered ONE; -propofoL 200 MG/20 ML VIAL As Ordered ONE
== END ==
LOC: M SOG 07:54
PROVIDERS: ATTEND Orthopaedic Surgery
DX: S52.551A Other extraarticular fracture of lower end of right radius, initial encounter for closed fracture (principal)

== ENCOUNTER → 2024-02-02 | Outpatient (CLI) | payer MEDICARE, MEDICAID | LOC: M SOG 07:57 | PROVIDERS: ATTEND Orthopaedic Surgery | DX: S52.551A Other extraarticular fracture of lower end of right radius, initial encounter for closed fracture (principal); W18.30XA Fall on same level, unspecified, initial encounter; Y92.009 Unspecified place in unspecified non-institutional (private) residence as the place of occurrence of the external cause ==

== ENCOUNTER → 2024-04-05 | Outpatient (CLI) | payer MEDICARE ==
[2024-04-05 13:35] LABS: BASO % 0.7 % (0.0-1.0); EOS # 0.1 10^3/uL (0.0-0.5); EOS % 2.2 % (0.0-3.0); HEMOGLOBIN 13.1 g/dl (12.0-15.5); LYMPH # 1.8 10^3/uL (1.5-5.0); LYMPH % 33.7 % (24.0-44.0); MEAN CORPUSCULAR HGB CONC 33.6 g/dl (32.0-36.5); MEAN CORPUSCULAR VOLUME 92.2 fl (80.0-96.0); MONO # 0.3 10^3/uL (0.0-0.8); MONO % 5.9 % (2.0-8.0); NEUTROPHILS # 3.1 10^3/uL (1.5-8.5); NEUTROPHILS % 57.1 % (36.0-66.0); PLATELET COUNT, AUTOMATED 239 10^3/uL (150-450); RED BLOOD COUNT 4.23 10^6/uL (4.00-5.40); WHITE BLOOD COUNT 5.4 10^3/uL (4.0-10.0)
[2024-04-05 13:52] LABS: ALBUMIN 3.7 G/DL (3.2-5.2); ALKALINE PHOSPHATASE 118 U/L (46-116); ALT/SGPT 18 U/L (7.0-40); AST/SGOT 12 U/L (<34); BILIRUBIN,TOTAL 0.3 MG/DL (0.3-1.2); BLOOD UREA NITROGEN 11 MG/DL (9-23); CARBON DIOXIDE LEVEL 27 MMOL/L (20-31); CHLORIDE LEVEL 105 MMOL/L (98-107); CHOLESTEROL LEVEL 220 MG/DL (<200); CHOLESTEROL RISK RATIO 5.58 (<5); CREATININE FOR GFR 0.69 MG/DL (0.55-1.30); GLOMERULAR FILTRATION RATE > 60.0 (>45); GLUCOSE, FASTING 165 MG/DL (74-106); HDL CHOLESTEROL 39.4 MG/DL (>40); NON-HDL-C 180.6 MG/DL; POTASSIUM SERUM 3.9 MMOL/L (3.5-5.1); SODIUM LEVEL 138 MMOL/L (136-145); TOTAL PROTEIN 7.1 G/DL (5.7-8.2); TRIGLYCERIDES LEVEL 188 MG/DL (<150)
[2024-04-05 13:55] LABS: HEMOGLOBIN A1c 6.2 % (4.0-6.0)
== END ==
LOC: M PLALAB 11:24
PROVIDERS: ATTEND Physician Assistant Medical
DX: E78.00 Pure hypercholesterolemia, unspecified (principal); E11.9 Type 2 diabetes mellitus without complications; I10 Essential (primary) hypertension

== ENCOUNTER → 2024-05-09 | Outpatient (CLI) | payer MEDICARE ==
[~2024-05-09] MED LIST changes: +GABA-1172 PO; -GABA-282 PO
== END ==
LOC: M WHC 12:43
PROVIDERS: ATTEND Physician Assistant Medical
DX: Z12.31 Encounter for screening mammogram for malignant neoplasm of breast (principal); N63.10 Unspecified lump in the right breast, unspecified quadrant; N60.02 Solitary cyst of left breast

== ENCOUNTER → 2024-05-11 | Outpatient (CLI) | payer MEDICARE ==
[2024-05-11 13:28] LABS: THYROID STIMULATING HORMONE 1.025 uIU/ML (0.55-4.78)
[2024-05-11 13:29] LABS: FREE T4 1.15 NG/DL (0.89-1.76)
== END ==
LOC: M PLALAB 09:40
PROVIDERS: ATTEND Physician Assistant Medical
DX: E03.9 Hypothyroidism, unspecified (principal)

== ENCOUNTER → 2024-05-31 | Outpatient (CLI) | payer MEDICARE, MEDICAID | LOC: M WHC 13:00 | PROVIDERS: ATTEND Physician Assistant Medical | DX: R92.8 Other abnormal and inconclusive findings on diagnostic imaging of breast (principal) | CPT/HCPCS: 76642; 77065; G0279 ==

== ENCOUNTER 2024-08-09 08:30 | Emergency (ER) | payer MEDICARE, MEDICAID ==
[~2024-08-09] VITALS: Ht 167.6 cm; Wt 96.7 kg
[2024-08-09 08:33] VITALS: TEMP 98.1
[2024-08-09 11:41] VITALS: BP 150/82; O2SAT 97
== END 2024-08-09 12:01 | disposition home or self-care (01) ==
LOC: M ED 08:30
DX: S93.524A Sprain of metatarsophalangeal joint of right lesser toe(s), initial encounter (principal); X58.XXXA Exposure to other specified factors, initial encounter; Y92.9 Unspecified place or not applicable; Y93.44 Activity, trampolining; Y99.9 Unspecified external cause status; Z79.899 Other long term (current) drug therapy

== ENCOUNTER 2024-09-07 12:22 | Emergency (ER) | payer MEDICARE, MEDICAID ==
[~2024-09-07] VITALS: Ht 165.1 cm; Wt 92.6 kg
[2024-09-07 12:28] VITALS: TEMP 98.9
[2024-09-07 16:55] VITALS: BP 128/75; O2SAT 98
== END 2024-09-07 16:58 | disposition home or self-care (01) ==
LOC: M ED 12:22
DX: S93.601A Unspecified sprain of right foot, initial encounter (principal); X50.1XXA Overexertion from prolonged static or awkward postures, initial encounter; Y92.9 Unspecified place or not applicable; Y93.9 Activity, unspecified; Y99.0 Civilian activity done for income or pay; I10 Essential (primary) hypertension; E78.5 Hyperlipidemia, unspecified; E11.9 Type 2 diabetes mellitus without complications; K21.9 Gastro-esophageal reflux disease without esophagitis; F20.9 Schizophrenia, unspecified; Z79.899 Other long term (current) drug therapy

== ENCOUNTER → 2024-11-29 | Outpatient (CLI) | payer MEDICARE ==
[2024-11-29 15:32] LABS: ALBUMIN 3.8 G/DL (3.2-5.2); ALKALINE PHOSPHATASE 109 U/L (35-104); ALT/SGPT 20 U/L (7.0-40); AST/SGOT 17 U/L (<34); BILIRUBIN,TOTAL 0.3 MG/DL (0.3-1.2); BLOOD UREA NITROGEN 16 MG/DL (9-23); CALCIUM LEVEL 9.4 MG/DL (8.3-10.6); CARBON DIOXIDE LEVEL 26 MMOL/L (20-31); CHLORIDE LEVEL 107 MMOL/L (98-107); CHOLESTEROL LEVEL 211 MG/DL (<200); CHOLESTEROL RISK RATIO 5.43 (<5); CREATININE FOR GFR 0.66 MG/DL (0.55-1.30); GLOMERULAR FILTRATION RATE > 90.0 (>45); GLUCOSE, FASTING 132 MG/DL (74-106); HDL CHOLESTEROL 38.8 MG/DL (>40); NON-HDL-C 172.2 MG/DL; POTASSIUM SERUM 4.5 MMOL/L (3.5-5.1); SODIUM LEVEL 141 MMOL/L (136-145); TRIGLYCERIDES LEVEL 196 MG/DL (<150)
[2024-11-29 15:33] LABS: BASO % 0.7 % (0.0-1.0); EOS # 0.1 10^3/uL (0.0-0.5); EOS % 1.5 % (0.0-3.0); HEMATOCRIT 39.7 % (36.0-47.0); HEMOGLOBIN 13.3 g/dl (12.0-15.5); LYMPH # 1.8 10^3/uL (1.5-5.0); LYMPH % 29.6 % (24.0-44.0); MEAN CORPUSCULAR HEMOGLOBIN 30.6 pg (27.0-33.0); MEAN CORPUSCULAR HGB CONC 33.5 g/dl (32.0-36.5); MEAN CORPUSCULAR VOLUME 91.3 fl (80.0-96.0); MONO # 0.4 10^3/uL (0.0-0.8); NEUTROPHILS # 3.8 10^3/uL (1.5-8.5); PLATELET COUNT, AUTOMATED 227 10^3/uL (150-450); RED BLOOD COUNT 4.35 10^6/uL (4.00-5.40); WHITE BLOOD COUNT 6.1 10^3/uL (4.0-10.0)
[2024-11-29 15:47] LABS: HEMOGLOBIN A1c 6.3 % (4.0-6.0)
== END ==
LOC: M PLALAB 12:37
PROVIDERS: ATTEND Physician Assistant Medical
DX: I10 Essential (primary) hypertension (principal); E78.00 Pure hypercholesterolemia, unspecified; E11.9 Type 2 diabetes mellitus without complications; E66.9 Obesity, unspecified

== ENCOUNTER → 2025-03-06 | Outpatient (CLI) | payer MEDICARE, MEDICAID ==
[~2025-03-06] MED LIST changes: -IBUP-1022 PO; +IBUP600T42 PO
[2025-03-06 14:01] LABS: FREE T4 1.16 NG/DL (0.89-1.76)
[2025-03-06 14:28] LABS: ESTIMATED AVERAGE GLUCOSE 131.0 MG/DL (60-110)
== END ==
LOC: M PLALAB 10:19
PROVIDERS: ATTEND Physician Assistant Medical
DX: M54.31 Sciatica, right side (principal); M47.816 Spondylosis without myelopathy or radiculopathy, lumbar region; E66.9 Obesity, unspecified; E11.9 Type 2 diabetes mellitus without complications

== ENCOUNTER 2025-07-14 21:11 | Emergency (ER) | payer MEDICARE, MEDICAID ==
[~2025-07-14] VITALS: Ht 165.1 cm; Wt 90.9 kg
[2025-07-14 21:42] LABS: BASO # 0.0 10^3/uL (0.0-0.2); BASO % 0.6 % (0.0-1.0); EOS # 0.0 10^3/uL (0.0-0.5); EOS % 0.9 % (0.0-3.0); LYMPH # 0.8 10^3/uL (1.5-5.0); LYMPH % 17.1 % (24.0-44.0); MONO # 0.4 10^3/uL (0.0-0.8); MONO % 8.4 % (2.0-8.0); NEUTROPHILS # 3.4 10^3/uL (1.5-8.5); NEUTROPHILS % 72.8 % (36.0-66.0); PLATELET COUNT, AUTOMATED 189 10^3/uL (150-450)
[2025-07-14 22:06] LABS: CK-MB VALUE MASS < 1.0 NG/ML (<3.6)
[2025-07-14 22:07] LABS: ALT/SGPT 16 U/L (7.0-40); AST/SGOT 30 U/L (<34); CALCIUM LEVEL 9.0 MG/DL (8.3-10.6); CARBON DIOXIDE LEVEL 26 MMOL/L (20-31); CHLORIDE LEVEL 100 MMOL/L (98-107); CREATININE FOR GFR 0.75 MG/DL (0.55-1.30); GLOMERULAR FILTRATION RATE 89.4 (>45); POTASSIUM SERUM 4.4 MMOL/L (3.5-5.1); SODIUM LEVEL 136 MMOL/L (136-145)
[2025-07-14 22:09] LABS: CPK CREATINE PHOSPHOKINASE 74 U/L (34-145)
[2025-07-14 22:15] VITALS: BP 160/77
[2025-07-14] MEDS: ACETAMINOPHEN 325 MG TAB PO ONE (22:38)
[2025-07-14] MEDS: OSELTAMIVIR PHOSPHATE 75 MG CAP PO ONE (22:57)
[2025-07-14] MEDS: predniSONE 20 MG TAB PO ONE (22:57)
[2025-07-14 23:08] LABS: CK-MB VALUE MASS < 1.0 NG/ML (<3.6)
[2025-07-14 23:09] LABS: CPK CREATINE PHOSPHOKINASE 63 U/L (34-145)
[2025-07-14] MEDS ORDERED: PRED10TA2 PO (23:30)
[2025-07-14] MEDS ORDERED: OSEL75CA PO (23:30)
[2025-07-14] MEDS ORDERED: VENTAER INH (23:30)
[2025-07-14 23:41] VITALS: TEMP 99; O2SAT 91
== END 2025-07-15 00:10 | disposition home or self-care (01) ==
LOC: M ED 21:11 → EDBD 21:11 → M ED 07-15 00:10
DX: J09.X2 Influenza due to identified novel influenza A virus with other respiratory manifestations (principal); J44.9 Chronic obstructive pulmonary disease, unspecified; E11.9 Type 2 diabetes mellitus without complications; I10 Essential (primary) hypertension; E78.5 Hyperlipidemia, unspecified; F20.9 Schizophrenia, unspecified; F41.9 Anxiety disorder, unspecified; F32.9 Major depressive disorder, single episode, unspecified; Z86.73 Personal history of transient ischemic attack (TIA), and cerebral infarction without residual deficits; Z87.891 Personal history of nicotine dependence; Z79.84 Long term (current) use of oral hypoglycemic drugs; Z79.899 Other long term (current) drug therapy
CPT/HCPCS: 71045; 80048; 80076; 82550; 82553; 84484; 85025; 87486; 87581; 87633; 87798; 93005; 93041; 94760; 99285; J7512